=== PATIENT | female | born 1955 | race Caucasian/White ===

== ENCOUNTER 2018-04-12 07:02 | Emergency (ER) | payer MEDICAID ==
[~2018-04-12] VITALS: Ht 160 cm; Wt 77.0 kg
[~2018-04-12 07:02] MED LIST: ACET-2615 PO; ALBU18HF2 IH; ALBU18HF2 INH; ALEN40TA2 PO; ALEN70TA48 PO; ASPI-1265 PO; ASPI81TA52 PO; BUPR100T5 PO; BUPR150T8 PO; CALC260T6 PO; ESCI20TA29 PO; ESCI20TA38 PO; HYDR-4383 PO; IBUP-1984 PO; LAMO200T2 PO; LURA60TA PO; LURA80TA3 PO; MAGN400C PO; MULT-1085 PO; MV-M1TAB19 PO; NITR0.4T51 SL; OMEP20TA5 PO; OSC500T PO; PANT-47 PO; ROPI1TAB4 PO; VITA1TAB20 PO; VITA200C68 PO; VITC500T PO; ZALE10CA PO; ZOLP5TAB8 PO
[2018-04-12 07:40] LABS: BASOPHILS % (AUTO) 0.3 % (0-1); EOSINOPHILS % (AUTO) 0.7 % (0-6); HEMATOCRIT 35.4 % (35.0-45.0); HEMOGLOBIN 11.8 g/dl (12.0-16.0); LYMPHOCYTES # (AUTO) 0.6 X10'3 (1.1-4.8); LYMPHOCYTES % (AUTO) 14.1 % (21-51); MEAN CORPUSCULAR HEMOGLOBIN 28.9 PG (27.0-31.0); MEAN CORPUSCULAR HGB CONC 33.2 % (33.0-36.5); MEAN CORPUSCULAR VOLUME 87.1 FL (78-98); MEAN PLATELET VOLUME 7.2 FL (7.4-10.4); MONOCYTES # (AUTO) 0.2 X10'3 (0-0.9); MONOCYTES % (AUTO) 4.1 % (2-12); NEUTROPHILS # (AUTO) 3.3 X10'3 (1.8-7.7); NEUTROPHILS % (AUTO) 80.8 % (42-75); PLATELET COUNT 314 X10'3 (140-440); RED BLOOD COUNT 4.07 X10'6 (4.20-5.60); RED CELL DISTRIBUTION WIDTH 15.8 % (11.5-14.5); WHITE BLOOD COUNT 4.1 X10'3 (4.5-11.0)
[2018-04-12 07:51] LABS: URINE HCG NEGATIVE (NEG)
[2018-04-12 07:55] LABS: CLARITY,URINE CLEAR (Clear); COLOR,URINE YELLOW (Yellow); GLUCOSE, URINE NEGATIVE (Neg); KETONES,URINE NEGATIVE (Neg); LEUKOCYTE ESTERASE ,URINE NEGATIVE (Neg); NITRITES, URINE NEGATIVE (Neg); OCCULT BLOOD,URINE NEGATIVE (Neg); PROTEIN,URINE NEGATIVE (Neg); UROBILINOGEN,URINE 0.2 E.U/dL (0.2-1.0)
[2018-04-12 07:56] LABS: UA COLLECTION TYPE OTHER
[2018-04-12 08:04] LABS: ALANINE AMINOTRANSFERASE 17 U/L (12-78); ALBUMIN 3.7 G/DL (3.4-5.0); ALBUMIN/GLOBULIN RATIO 1.1 (1.1-1.5); ALKALINE PHOSPHATASE 127 IU/L (46-116); ANION GAP 10 (8-16); ASPARTATE AMINO TRANSFERASE 16 U/L (10-37); BILIRUBIN,TOTAL 0.5 MG/DL (0.1-1.0); BLOOD UREA NITROGEN 8 MG/DL (7-18); BUN/CREATININE RATIO 6.4 (6.6-38.0); CALCIUM 8.4 MG/DL (8.5-10.1); CHLORIDE 103 MMOL/L (99-107); CREATININE 1.25 MG/DL (0.40-0.90); ETHANOL < 0.010 GM/DL (0.0-0.010); GLUCOSE 131 MG/DL (70-104); POTASSIUM 3.8 MMOL/L (3.5-5.1); SODIUM 136 MMOL/L (135-145); TOTAL CARBON DIOXIDE 22.9 MMOL/L (24-32); eGFR 43 ML/MIN
[2018-04-12 08:06] LABS: ACETAMINOPHEN < 2.0 UG/ML (10-30)
[2018-04-12 08:14] LABS: URINE AMPHETAMINE SCREEN NEGATIVE (Neg); URINE BARBITUATE SCREEN NEGATIVE (Neg); URINE BENZODIAZEPINES SCREEN NEGATIVE (Neg); URINE CANNABINOID SCREEN NEGATIVE (Neg); URINE COCAINE SCREEN NEGATIVE (Neg); URINE METHADONE SCREEN NEGATIVE (Neg); URINE OPIATE SCREEN NEGATIVE (Neg); URINE PHENCYCLIDINE SCREEN NEGATIVE (Neg)
[2018-04-12] MEDS ORDERED: BUPR100T5 PO (19:58)
[2018-04-12] MEDS ORDERED: LAMO25TA4 PO (19:58)
[2018-04-12] MEDS ORDERED: ALEN70TA48 PO (19:58)
[2018-04-12] MEDS ORDERED: acetaminophen 325mg tablet PO PRN (21:05)
[2018-04-13] MEDS: pantoprazole 40mg Tablet.DR PO SCH (08:18)
[2018-04-13] MEDS: lamoTRIgine 100mg tablet PO SCH ×2 (08:18→20:36)
[2018-04-13] MEDS: multivitamins, therapeutics tablet PO SCH (08:18)
[2018-04-13] MEDS: aspirin 81mg tablet.DR PO SCH (08:18)
[2018-04-13] MEDS: calcium carbonate 500mg tablet PO SCH ×2 (08:19→20:35)
[2018-04-13] MEDS: ascorbic acid 500mg tablet PO SCH ×2 (08:22→20:00)
[2018-04-13] MEDS: buPROPion SR 100mg tab PO SCH ×2 (08:30→20:34)
[2018-04-13] MEDS: vitamin B comp w/Vit. C tab 1 TAB TABLET PO SCH (08:30)
[2018-04-13] MEDS ORDERED: [UNRECOGNIZED DRUG - REMARK] PO NR (10:00)
[2018-04-13] MEDS ORDERED: lamoTRIgine 25mg tablet PO SCH (21:00)
[2018-04-14] MEDS ORDERED: topiramate 100mg tablet PO ONE (02:10)
[2018-04-14] MEDS ORDERED: clonazePAM 0.5mg tablet PO ONE (02:10)
[2018-04-14] MEDS ORDERED: topiramate 25mg tablet PO ONE (02:25)
[2018-04-14 05:46] VITALS: BP 125/64
[2018-04-14] MEDS ORDERED: topiramate 25mg tablet PO SCH (08:00)
[2018-04-14] MEDS: calcium carbonate 500mg tablet PO SCH (09:13)
[2018-04-14] MEDS: buPROPion SR 100mg tab PO SCH (09:13)
[2018-04-14] MEDS: vitamin B comp w/Vit. C tab 1 TAB TABLET PO SCH (09:13)
[2018-04-14] MEDS: multivitamins, therapeutics tablet PO SCH (09:14)
[2018-04-14] MEDS: aspirin 81mg tablet.DR PO SCH (09:14)
[2018-04-14] MEDS: lamoTRIgine 100mg tablet PO SCH (09:14)
[2018-04-14] MEDS: pantoprazole 40mg Tablet.DR PO SCH (09:14)
[2018-04-14] MEDS ORDERED: clonazePAM 0.5mg tablet PO SCH (21:00)
== END 2018-04-14 17:35 | disposition home or self-care (01) ==
LOC: ER 07:03
DX: T42.6X2A Poisoning by other antiepileptic and sedative-hypnotic drugs, intentional self-harm, initial encounter (principal); T39.312A Poisoning by propionic acid derivatives, intentional self-harm, initial encounter; Y92.89 Other specified places as the place of occurrence of the external cause; R45.851 Suicidal ideations; J44.9 Chronic obstructive pulmonary disease, unspecified; E11.9 Type 2 diabetes mellitus without complications; F31.9 Bipolar disorder, unspecified; Z90.710 Acquired absence of both cervix and uterus; Z79.82 Long term (current) use of aspirin; Z72.89 Other problems related to lifestyle; Z79.899 Other long term (current) drug therapy
CPT/HCPCS: 36415; 80053; 80305; 80320; 80329; 81003; 81025; 84443; 85025; 93005; 99285

== ENCOUNTER 2018-04-27 15:45 | Emergency (ER) | payer MEDICAID ==
[~2018-04-27] VITALS: Ht 160 cm; Wt 77.7 kg
[~2018-04-27 15:45] MED LIST changes: -ALBU18HF2 IH; -ALBU18HF2 INH; -ALEN40TA2 PO; -ASPI-1265 PO; -BUPR150T8 PO; -CALC260T6 PO; -ESCI20TA29 PO; -ESCI20TA38 PO; -HYDR-4383 PO; +LAMO25TA4 PO; -LURA60TA PO; -LURA80TA3 PO; -MAGN400C PO; -MV-M1TAB19 PO; -NITR0.4T51 SL; -PANT-47 PO; -ROPI1TAB4 PO; -VITA200C68 PO; -ZALE10CA PO; -ZOLP5TAB8 PO
[2018-04-27 16:53] VITALS: BP 121/72
== END 2018-04-27 16:54 | disposition home or self-care (01) ==
LOC: ER 15:45
DX: S00.03XA Contusion of scalp, initial encounter (principal); S09.90XA Unspecified injury of head, initial encounter; J44.9 Chronic obstructive pulmonary disease, unspecified; Z90.710 Acquired absence of both cervix and uterus; Z98.890 Other specified postprocedural states; Z79.82 Long term (current) use of aspirin; W01.198A Fall on same level from slipping, tripping and stumbling with subsequent striking against other object, initial encounter; Y93.89 Activity, other specified; Y92.89 Other specified places as the place of occurrence of the external cause; Y99.9 Unspecified external cause status
CPT/HCPCS: 70450; 72125; 99284

== ENCOUNTER 2018-06-11 17:28 | Inpatient (IN) | payer MEDICAID ==
[~2018-06-11] VITALS: Ht 160 cm; Wt 77.3 kg
[2018-06-11] MEDS ORDERED: morphine 4 MG/ML inj SYRINge IV ONE ×2 (19:00→19:55)
[2018-06-11] MEDS ORDERED: ondansetron/PF 4mg/2ml inj IV ONE (19:00)
[2018-06-11 19:26] LABS: BASOPHILS % (AUTO) 0.1 % (0-1); EOSINOPHILS # (AUTO) 0.1 X10'3 (0-0.9); EOSINOPHILS % (AUTO) 1.3 % (0-6); HEMATOCRIT 33.9 % (35.0-45.0); HEMOGLOBIN 11.1 g/dl (12.0-16.0); LYMPHOCYTES # (AUTO) 0.9 X10'3 (1.1-4.8); LYMPHOCYTES % (AUTO) 13.4 % (21-51); MEAN CORPUSCULAR HEMOGLOBIN 29.2 PG (27.0-31.0); MEAN CORPUSCULAR HGB CONC 32.6 % (33.0-36.5); MEAN CORPUSCULAR VOLUME 89.5 FL (78-98); MEAN PLATELET VOLUME 7.2 FL (7.4-10.4); MONOCYTES # (AUTO) 0.4 X10'3 (0-0.9); MONOCYTES % (AUTO) 6.3 % (2-12); NEUTROPHILS # (AUTO) 5.6 X10'3 (1.8-7.7); NEUTROPHILS % (AUTO) 78.9 % (42-75); PLATELET COUNT 266 X10'3 (140-440); RED BLOOD COUNT 3.79 X10'6 (4.20-5.60); RED CELL DISTRIBUTION WIDTH 15.5 % (11.5-14.5); WHITE BLOOD COUNT 7.1 X10'3 (4.5-11.0)
[2018-06-11 19:42] LABS: ALANINE AMINOTRANSFERASE 19 U/L (12-78); ALBUMIN 3.4 G/DL (3.4-5.0); ALBUMIN/GLOBULIN RATIO 1.1 (1.1-1.5); ALKALINE PHOSPHATASE 108 IU/L (46-116); ANION GAP 13 (8-16); ASPARTATE AMINO TRANSFERASE 17 U/L (10-37); BILIRUBIN,TOTAL 0.2 MG/DL (0.1-1.0); BLOOD UREA NITROGEN 11 MG/DL (7-18); BUN/CREATININE RATIO 11.3 (6.6-38.0); CALCIUM 8.5 MG/DL (8.5-10.1); CHLORIDE 105 MMOL/L (99-107); CREATININE 0.97 MG/DL (0.40-0.90); GLUCOSE 115 MG/DL (70-104); POTASSIUM 3.6 MMOL/L (3.5-5.1); SODIUM 141 MMOL/L (135-145); TOTAL CARBON DIOXIDE 23.4 MMOL/L (24-32); TOTAL PROTEIN 6.5 G/DL (6.4-8.2); eGFR 58 ML/MIN
[2018-06-11 19:48] LABS: PARTIAL THROMBOPLASTIN TIME 29 SECONDS (22-32); PROTHROMBIN TIME 10.2 SECONDS (9.0-12.0)
[2018-06-11 19:59] LABS: CLARITY,URINE CLEAR (Clear); COLOR,URINE YELLOW (Yellow); GLUCOSE, URINE NEGATIVE (Neg); KETONES,URINE NEGATIVE (Neg); LEUKOCYTE ESTERASE ,URINE NEGATIVE (Neg); NITRITES, URINE NEGATIVE (Neg); OCCULT BLOOD,URINE NEGATIVE (Neg); PH,URINE 6.5 (4.8-8.0); PROTEIN,URINE NEGATIVE (Neg); UROBILINOGEN,URINE 0.2 E.U/dL (0.2-1.0)
[2018-06-11 20:00] LABS: UA COLLECTION TYPE FOLEY CATH
[2018-06-11] MEDS ORDERED: morphine 2 MG/ML inj. syringe IV PRN (20:55)
[2018-06-11] MEDS ORDERED: mag hydrox/Alum hydrox/simeth 30ml oral suspension PO PRN (20:55)
[2018-06-11] MEDS ORDERED: heparin, porcine 5000 units/ml vial SQ ONE (20:55)
[2018-06-11] MEDS ORDERED: acetaminophen 325mg tablet PO PRN (20:55)
[2018-06-11] MEDS ORDERED: magnesium hydroxide 30ml (MOM) UD suspension PO PRN (20:55)
[2018-06-11] MEDS ORDERED: ESCI5TAB PO (21:45)
[2018-06-11] MEDS ORDERED: LURA60TA2 PO (21:45)
[2018-06-11] MEDS ORDERED: CLON-528 PO (21:45)
[2018-06-11] MEDS ORDERED: OMEP40CA37 PO (21:45)
[2018-06-11] MEDS ORDERED: TOPI25TA49 PO (21:45)
[2018-06-11] MEDS ORDERED: non-formulary drug (Alendronate Sodium* (Fosamax*) 1 TABLET) PO SCH (21:50)
[2018-06-11] MEDS: normal saline 1000ml 1,000 ML IV SCH (22:01)
[2018-06-11] MEDS: morphine 2 MG/ML inj. syringe IV PRN (23:58)
[2018-06-12] VITALS (20 sets, daily range): BP systolic 108–161; BP diastolic 55–93
[2018-06-12] MEDS: morphine 4 MG/ML inj SYRINge IV PRN ×6 (01:41→16:54)
[2018-06-12] MEDS: morphine 2 MG/ML inj. syringe IV PRN (04:58)
[2018-06-12] MEDS: ondansetron/PF 4mg/2ml inj IV PRN ×2 (04:58→12:53)
[2018-06-12] MEDS: aspirin 81mg tablet.DR PO SCH (08:00)
[2018-06-12] MEDS: normal saline 1000ml 1,000 ML IV SCH ×3 (08:09→20:53)
[2018-06-12] MEDS: lurasidone 60mg tablet PO SCH (08:12)
[2018-06-12] MEDS: citalopram 20mg tablet PO SCH (08:13)
[2018-06-12] MEDS: topiramate 25mg tablet PO SCH ×2 (08:14→20:53)
[2018-06-12] MEDS: pantoprazole 40mg Tablet.DR PO SCH (08:14)
[2018-06-12] MEDS: lamoTRIgine 100mg tablet PO SCH ×2 (08:14→20:53)
[2018-06-12] MEDS: buPROPion SR 100mg tab PO SCH ×2 (08:15→20:53)
[2018-06-12 08:37] LABS: BASOPHILS % (AUTO) 0.3 % (0-1); EOSINOPHILS % (AUTO) 0.8 % (0-6); HEMATOCRIT 34.2 % (35.0-45.0); HEMOGLOBIN 11.2 g/dl (12.0-16.0); LYMPHOCYTES # (AUTO) 1.1 X10'3 (1.1-4.8); LYMPHOCYTES % (AUTO) 22.2 % (21-51); MEAN CORPUSCULAR HEMOGLOBIN 29.2 PG (27.0-31.0); MEAN CORPUSCULAR HGB CONC 32.7 % (33.0-36.5); MEAN CORPUSCULAR VOLUME 89.2 FL (78-98); MEAN PLATELET VOLUME 7.7 FL (7.4-10.4); MONOCYTES # (AUTO) 0.6 X10'3 (0-0.9); MONOCYTES % (AUTO) 12.1 % (2-12); NEUTROPHILS # (AUTO) 3.3 X10'3 (1.8-7.7); NEUTROPHILS % (AUTO) 64.6 % (42-75); PLATELET COUNT 219 X10'3 (140-440); RED BLOOD COUNT 3.84 X10'6 (4.20-5.60); RED CELL DISTRIBUTION WIDTH 15.4 % (11.5-14.5); WHITE BLOOD COUNT 5.2 X10'3 (4.5-11.0)
[2018-06-12 08:52] LABS: ALANINE AMINOTRANSFERASE 18 U/L (12-78); ALBUMIN 3.2 G/DL (3.4-5.0); ALKALINE PHOSPHATASE 111 IU/L (46-116); ANION GAP 10 (8-16); ASPARTATE AMINO TRANSFERASE 19 U/L (10-37); BILIRUBIN,TOTAL 0.5 MG/DL (0.1-1.0); BLOOD UREA NITROGEN 10 MG/DL (7-18); BUN/CREATININE RATIO 11.9 (6.6-38.0); CALCIUM 8.2 MG/DL (8.5-10.1); CHLORIDE 105 MMOL/L (99-107); CREATININE 0.84 MG/DL (0.40-0.90); GLUCOSE 118 MG/DL (70-104); POTASSIUM 3.5 MMOL/L (3.5-5.1); SODIUM 140 MMOL/L (135-145); TOTAL CARBON DIOXIDE 24.7 MMOL/L (24-32); TOTAL PROTEIN 6.4 G/DL (6.4-8.2); eGFR 68 ML/MIN
[2018-06-12] MEDS ORDERED: BUPIVAcaine/PF 2.5mg/ml (0.25%) 10ml vial ONE (13:27)
[2018-06-12] MEDS ORDERED: sevoflurane 250ml liquid IH ONE (14:44)
[2018-06-12] MEDS ORDERED: dexamethasone sod phosphate 10mg/ml inj ONE (14:44)
[2018-06-12] MEDS ORDERED: fentaNYL/PF 50MCG/1 ML 2ML syringe ONE (14:45)
[2018-06-12] MEDS ORDERED: propofol inj 20 ML IV ONE (14:46)
[2018-06-12] MEDS ORDERED: LIDOcaine 2% (20mg/ml) 5ml vial ONE (14:46)
[2018-06-12] MEDS ORDERED: MIDAZolam 5mg/5ml vial ONE (14:46)
[2018-06-12] MEDS ORDERED: ringers solution, lacted 1,000 ML IV SCH (14:49)
[2018-06-12] MEDS ORDERED: labetalol 20mg/4ml (5mg/ml) syringe IV PRN (14:50)
[2018-06-12] MEDS ORDERED: ondansetron/PF 4mg/2ml inj IV PRN (14:50)
[2018-06-12] MEDS ORDERED: fentaNYL/PF 50MCG/1 ML 2ML syringe IV PRN ×2 (14:50)
[2018-06-12] MEDS ORDERED: hydrALAZINE 20mg/ml inj. IV PRN (14:50)
[2018-06-12] MEDS ORDERED: morphine 4 MG/ML inj SYRINge IV PRN ×4 (14:50→15:48)
[2018-06-12] MEDS ORDERED: ondansetron/PF 4mg/2ml inj ONE (15:11)
[2018-06-12] MEDS: clonazePAM 0.5mg tablet PO SCH (20:53)
[2018-06-13] VITALS (7 sets, daily range): BP systolic 90–102; BP diastolic 38–52
[2018-06-13] MEDS ORDERED: HYDROcodone/acetaminophen 10/325mg tab PO PRN (05:15)
[2018-06-13] MEDS: HYDROcodone/acetaminophen 10/325mg tab PO PRN ×2 (05:31→20:10)
[2018-06-13 06:46] LABS: BASOPHILS % (AUTO) 0.2 % (0-1); EOSINOPHILS % (AUTO) 0 % (0-6); HEMATOCRIT 28.9 % (35.0-45.0); HEMOGLOBIN 9.4 g/dl (12.0-16.0); LYMPHOCYTES # (AUTO) 0.9 X10'3 (1.1-4.8); LYMPHOCYTES % (AUTO) 13.5 % (21-51); MEAN CORPUSCULAR HGB CONC 32.4 % (33.0-36.5); MEAN CORPUSCULAR VOLUME 89.4 FL (78-98); MONOCYTES # (AUTO) 0.7 X10'3 (0-0.9); NEUTROPHILS # (AUTO) 4.9 X10'3 (1.8-7.7); NEUTROPHILS % (AUTO) 75.3 % (42-75); PLATELET COUNT 189 X10'3 (140-440); RED BLOOD COUNT 3.23 X10'6 (4.20-5.60); RED CELL DISTRIBUTION WIDTH 15.4 % (11.5-14.5); WHITE BLOOD COUNT 6.6 X10'3 (4.5-11.0)
[2018-06-13 07:35] LABS: ALANINE AMINOTRANSFERASE 19 U/L (12-78); ALBUMIN 2.7 G/DL (3.4-5.0); ALKALINE PHOSPHATASE 86 IU/L (46-116); ANION GAP 8 (8-16); ASPARTATE AMINO TRANSFERASE 21 U/L (10-37); BILIRUBIN,TOTAL 0.4 MG/DL (0.1-1.0); BLOOD UREA NITROGEN 6 MG/DL (7-18); BUN/CREATININE RATIO 7.1 (6.6-38.0); CALCIUM 8.3 MG/DL (8.5-10.1); CHLORIDE 110 MMOL/L (99-107); CREATININE 0.84 MG/DL (0.40-0.90); GLUCOSE 116 MG/DL (70-104); POTASSIUM 3.9 MMOL/L (3.5-5.1); SODIUM 143 MMOL/L (135-145); TOTAL CARBON DIOXIDE 24.9 MMOL/L (24-32); TOTAL PROTEIN 5.5 G/DL (6.4-8.2); eGFR 68 ML/MIN
[2018-06-13] MEDS: lurasidone 60mg tablet PO SCH (08:10)
[2018-06-13] MEDS: buPROPion SR 100mg tab PO SCH ×2 (08:10→20:09)
[2018-06-13] MEDS: aspirin 81mg tablet.DR PO SCH (08:10)
[2018-06-13] MEDS: lamoTRIgine 100mg tablet PO SCH ×2 (08:11→20:10)
[2018-06-13] MEDS: pantoprazole 40mg Tablet.DR PO SCH (08:11)
[2018-06-13] MEDS: topiramate 25mg tablet PO SCH ×2 (08:11→20:09)
[2018-06-13] MEDS: citalopram 20mg tablet PO SCH (08:11)
[2018-06-13] MEDS: enoxaparin 40mg/0.4ml syringe SUBCUT SCH (08:13)
[2018-06-13] MEDS: normal saline 1000ml 1,000 ML IV SCH (12:53)
[2018-06-13] MEDS: morphine 4 MG/ML inj SYRINge IV PRN (14:16)
[2018-06-13] MEDS: ceFAZolin 1GM/D5W- ADD-VANTAGE 50 ML IV SCH ×2 (14:39→22:00)
[2018-06-13] MEDS ORDERED: ceFAZolin 1GM/D5W- ADD-VANTAGE 50 ML IV SCH (16:00)
[2018-06-13] MEDS: clonazePAM 0.5mg tablet PO SCH (20:09)
[2018-06-13] MEDS ORDERED: ceFAZolin 1GM/D5W- ADD-VANTAGE 50 ML IV ONE (23:45)
[2018-06-14] MEDS: normal saline 1000ml 1,000 ML IV SCH ×2 (00:59→08:53)
[2018-06-14 05:00] VITALS: BP 113/56
[2018-06-14] MEDS: HYDROcodone/acetaminophen 10/325mg tab PO PRN (05:27)
[2018-06-14 06:07] LABS: BASOPHILS % (AUTO) 0.2 % (0-1); EOSINOPHILS # (AUTO) 0.1 X10'3 (0-0.9); EOSINOPHILS % (AUTO) 1.1 % (0-6); HEMATOCRIT 24.6 % (35.0-45.0); HEMOGLOBIN 8.2 g/dl (12.0-16.0); LYMPHOCYTES % (AUTO) 20.6 % (21-51); MEAN CORPUSCULAR HEMOGLOBIN 29.5 PG (27.0-31.0); MEAN CORPUSCULAR HGB CONC 33.4 % (33.0-36.5); MEAN CORPUSCULAR VOLUME 88.4 FL (78-98); MONOCYTES # (AUTO) 0.7 X10'3 (0-0.9); MONOCYTES % (AUTO) 13.5 % (2-12); NEUTROPHILS # (AUTO) 3.2 X10'3 (1.8-7.7); NEUTROPHILS % (AUTO) 64.6 % (42-75); PLATELET COUNT 162 X10'3 (140-440); RED BLOOD COUNT 2.78 X10'6 (4.20-5.60); RED CELL DISTRIBUTION WIDTH 15.4 % (11.5-14.5)
[2018-06-14 06:15] LABS: ALANINE AMINOTRANSFERASE 16 U/L (12-78); ALBUMIN 2.4 G/DL (3.4-5.0); ALBUMIN/GLOBULIN RATIO 0.9 (1.1-1.5); ALKALINE PHOSPHATASE 84 IU/L (46-116); ANION GAP 10 (8-16); ASPARTATE AMINO TRANSFERASE 22 U/L (10-37); BILIRUBIN,TOTAL 0.3 MG/DL (0.1-1.0); BLOOD UREA NITROGEN 8 MG/DL (7-18); BUN/CREATININE RATIO 9.2 (6.6-38.0); CALCIUM 8.1 MG/DL (8.5-10.1); CHLORIDE 108 MMOL/L (99-107); CREATININE 0.87 MG/DL (0.40-0.90); GLUCOSE 111 MG/DL (70-104); POTASSIUM 3.1 MMOL/L (3.5-5.1); SODIUM 142 MMOL/L (135-145); TOTAL CARBON DIOXIDE 23.9 MMOL/L (24-32); TOTAL PROTEIN 5.2 G/DL (6.4-8.2); eGFR 66 ML/MIN
[2018-06-14] MEDS: enoxaparin 40mg/0.4ml syringe SUBCUT SCH (08:51)
[2018-06-14] MEDS: lurasidone 60mg tablet PO SCH (08:51)
[2018-06-14] MEDS: aspirin 81mg tablet.DR PO SCH (08:52)
[2018-06-14] MEDS: topiramate 25mg tablet PO SCH (08:52)
[2018-06-14] MEDS: buPROPion SR 100mg tab PO SCH (08:52)
[2018-06-14] MEDS: pantoprazole 40mg Tablet.DR PO SCH (08:52)
[2018-06-14] MEDS: citalopram 20mg tablet PO SCH (08:52)
[2018-06-14] MEDS: lamoTRIgine 100mg tablet PO SCH (08:53)
[2018-06-14] MEDS ORDERED: potassium Cl 40MEQ/NS 500ml 500 ML IV PRN ×2 (09:00)
[2018-06-14] MEDS ORDERED: potassium Cl 20 mEq SR tablet PO PRN ×2 (09:00)
[2018-06-14 10:00] VITALS: BP 113/42
[2018-06-14 10:02] LABS: MAGNESIUM 1.9 MG/DL (1.5-2.4)
== END 2018-06-14 14:50 | DRG 308 ==
LOC: ER 17:29 → ED HOLD 21:13 → ORTHO 4S 06-12 07:04
PROVIDERS: ADMIT Internal Medicine; ATTEND Orthopaedic Surgery Hand Surgery
PROC: 0QS606Z Reposition Right Upper Femur with Intramedullary Internal Fixation Device, Open Approach (ICD-10-PCS; principal; 2018-06-12 14:49)
DX: S72.141A Displaced intertrochanteric fracture of right femur, initial encounter for closed fracture (principal); D62 Acute posthemorrhagic anemia; S72.21XA Displaced subtrochanteric fracture of right femur, initial encounter for closed fracture; J44.9 Chronic obstructive pulmonary disease, unspecified; W01.0XXA Fall on same level from slipping, tripping and stumbling without subsequent striking against object, initial encounter; G40.909 Epilepsy, unspecified, not intractable, without status epilepticus; F31.9 Bipolar disorder, unspecified; K21.9 Gastro-esophageal reflux disease without esophagitis; Z80.8 Family history of malignant neoplasm of other organs or systems; Z82.49 Family history of ischemic heart disease and other diseases of the circulatory system; Z83.3 Family history of diabetes mellitus; Z90.710 Acquired absence of both cervix and uterus; Y93.89 Activity, other specified; Y92.098 Other place in other non-institutional residence as the place of occurrence of the external cause; Y99.8 Other external cause status; Z79.899 Other long term (current) drug therapy
CPT/HCPCS: 36415; 71045; 73502; 76001; 80053; 81003; 83735; 85025; 85610; 85730; 87070; 93005; 96374; 96375; 96376; 97116; 97162; 97530; 99285; A6449; A7000; G0378; J0690; J1100; J1644; J1650; J2001; J2250; J2270; J2405; J2704; J3010; J3490; J7030; J7120

== ENCOUNTER 2020-01-17 15:40 | Emergency (ER) | payer MEDICARE, MEDICAID ==
[~2020-01-17] VITALS: Ht 160 cm; Wt 62.7 kg
[~2020-01-17 15:40] MED LIST changes: -ACET-2615 PO; -ALEN70TA48 PO; +ALEN70TA60 PO; +CLON-528 PO; +ESCI5TAB PO; -IBUP-1984 PO; -LAMO25TA4 PO; +LURA60TA2 PO; -MULT-1085 PO; -OMEP20TA5 PO; +OMEP40CA13 PO; -OSC500T PO; +TOPI25TA49 PO; -VITA1TAB20 PO; -VITC500T PO
[2020-01-17 16:46] LABS: BASOPHILS % (AUTO) 0.7 % (0-1); EOSINOPHILS # (AUTO) 0.1 X10'3 (0-0.9); EOSINOPHILS % (AUTO) 1.8 % (0-6); HEMATOCRIT 37.6 % (35.0-45.0); HEMOGLOBIN 12.4 g/dl (12.0-16.0); LYMPHOCYTES # (AUTO) 1.3 X10'3 (1.1-4.8); MEAN CORPUSCULAR HEMOGLOBIN 29.9 PG (27.0-31.0); MEAN CORPUSCULAR HGB CONC 32.9 g/dL (33.0-36.5); MEAN PLATELET VOLUME 7.3 FL (7.4-10.4); MONOCYTES # (AUTO) 0.4 X10'3 (0-0.9); MONOCYTES % (AUTO) 10.5 % (2-12); NEUTROPHILS # (AUTO) 2.2 X10'3 (1.8-7.7); PLATELET COUNT 218 X10'3 (140-440); RED BLOOD COUNT 4.14 X10'6 (4.20-5.60); RED CELL DISTRIBUTION WIDTH 14.7 % (11.5-14.5)
[2020-01-17 16:49] LABS: PARTIAL THROMBOPLASTIN TIME 21 SECONDS (22-32)
[2020-01-17 16:52] LABS: ALANINE AMINOTRANSFERASE 18 U/L (12-78); ALBUMIN 3.8 G/DL (3.4-5.0); ALBUMIN/GLOBULIN RATIO 1.2 (1.1-1.5); ALKALINE PHOSPHATASE 71 IU/L (46-116); ANION GAP 10 (8-16); ASPARTATE AMINO TRANSFERASE 17 U/L (10-37); BILIRUBIN,TOTAL 0.5 MG/DL (0.1-1.0); BLOOD UREA NITROGEN 13 MG/DL (7-18); BUN/CREATININE RATIO 12.5 (6.6-38.0); CALCIUM 9.5 MG/DL (8.5-10.1); CHLORIDE 107 MMOL/L (99-107); CREATININE 1.04 MG/DL (0.40-0.90); GLUCOSE 100 MG/DL (70-104); SODIUM 141 MMOL/L (135-145); TOTAL CARBON DIOXIDE 24.2 MMOL/L (24-32); TOTAL PROTEIN 6.9 G/DL (6.4-8.2); eGFR 53 ML/MIN
[2020-01-17 16:55] LABS: TROPONIN I < 0.04 NG/ML (0.0-0.05)
[2020-01-17 17:38] LABS: URINE AMPHETAMINE SCREEN NEGATIVE (Neg); URINE BARBITUATE SCREEN NEGATIVE (Neg); URINE BENZODIAZEPINES SCREEN NEGATIVE (Neg); URINE CANNABINOID SCREEN NEGATIVE (Neg); URINE COCAINE SCREEN NEGATIVE (Neg); URINE METHADONE SCREEN NEGATIVE (Neg); URINE OPIATE SCREEN NEGATIVE (Neg); URINE PHENCYCLIDINE SCREEN NEGATIVE (Neg)
[2020-01-17 17:51] LABS: CLARITY,URINE CLEAR (Clear); COLOR,URINE YELLOW (Yellow); GLUCOSE, URINE NEGATIVE (Neg); KETONES,URINE NEGATIVE (Neg); LEUKOCYTE ESTERASE ,URINE NEGATIVE (Neg); NITRITES, URINE NEGATIVE (Neg); OCCULT BLOOD,URINE NEGATIVE (Neg); PROTEIN,URINE NEGATIVE (Neg); UROBILINOGEN,URINE 0.2 E.U/dL (0.2-1.0)
[2020-01-17 17:53] LABS: UA COLLECTION TYPE VOIDED
[2020-01-17 18:18] VITALS: BP 138/84
== END 2020-01-17 18:28 | disposition home or self-care (01) ==
LOC: ER 15:41
DX: R42 Dizziness and giddiness (principal); R53.1 Weakness; R05 Cough; J44.9 Chronic obstructive pulmonary disease, unspecified; F31.9 Bipolar disorder, unspecified; Z86.69 Personal history of other diseases of the nervous system and sense organs; Z90.710 Acquired absence of both cervix and uterus; Z79.82 Long term (current) use of aspirin
CPT/HCPCS: 36415; 71045; 80053; 80305; 81003; 84484; 85025; 85610; 85730; 93005; 99285

== ENCOUNTER 2022-06-16 14:11 | Emergency (ER) | payer MEDICARE, MEDICAID ==
[~2022-06-16] VITALS: Ht 160 cm; Wt 78.6 kg
[~2022-06-16 14:11] MED LIST changes: -ALEN70TA60 PO; +DICL100G30 TOP; -ESCI5TAB PO; -LAMO200T2 PO; -LURA60TA2 PO; -OMEP40CA13 PO; +QUET25TA36 PO; -TOPI25TA49 PO; +TOPI50TA24 PO
[2022-06-16 15:08] VITALS: BP 136/85
== END 2022-06-16 19:24 | disposition left against medical advice (07) ==
LOC: ER 14:12
DX: K62.5 Hemorrhage of anus and rectum (principal); Z53.21 Procedure and treatment not carried out due to patient leaving prior to being seen by health care provider

== ENCOUNTER 2023-01-28 12:19 | Inpatient (IN) | payer MEDICARE, MEDICAID ==
[~2023-01-28] VITALS: Ht 160 cm; Wt 59.9 kg
[~2023-01-28 12:19] MED LIST changes: -DICL100G30 TOP; +DICL100G59 TOP; +TOPI-253 PO; -TOPI50TA24 PO
--- NOTE | 2023-01-28 15:35 | NUR ---
Admission Note: Pt. was admitted from [facility] on a 5150 for DTS. A safety check was completed and belongings were inventoried by Tech. Per 5150: You disclosed a plan to your therapist to cut your throat/jugular vein with a knife. You stated you are intent on doing so once you work up the courage and are unable to safety plan. You have a history of past suicide attempts. Pt. scores as a high risk on the [place] Suicide Risk Assessment, however is able to contract for safety while on the unit. This was endorsed to Dr. Teresa and Q 15min safety checks were ordered. Pt. exhibits bilateral leg weakness r/t a history of right hip surgery and left ankle surgery. She wears a leg brace for ambulation and per charge nurse was allowed to keep her tennis shoes with the laces as she needs these for ambulation. Pt. uses a cane at home, but was given a walker to use while on the unit. She requires some assistance in order to perform ADLs r/t generalized weakness. Pt. did require assistance from this engineering writer to complete a shower upon admission.
[2023-01-28] MEDS ORDERED: magnesium hydroxide 30ml (MOM) UD suspension PO PRN (15:45)
[2023-01-28] MEDS ORDERED: mag hydrox/Alum hydrox/simeth 30ml oral suspension PO PRN (15:45)
[2023-01-28] MEDS ORDERED: acetaminophen 325mg tablet PO PRN ×2 (15:45)
[2023-01-28] MEDS ORDERED: loperamide 2mg capsule PO PRN (15:45)
[2023-01-28 16:13] VITALS: BP 105/61; PULSE 89; RESP 16; TEMP 99.2; O2SAT 99
[2023-01-28 16:41] VITALS: RESP 16; O2SAT 99
[2023-01-28 19:00] VITALS: RESP 17; O2SAT 96
[2023-01-28] MEDS ORDERED: TOPI25TA15 PO (19:13)
[2023-01-28] MEDS ORDERED: DULO20CA50 PO (19:18)
[2023-01-28] MEDS ORDERED: LAMO200T10 PO (19:33)
[2023-01-28] MEDS ORDERED: NYST15CR37 TP (19:34)
[2023-01-28] MEDS ORDERED: CHOL400C8 PO (19:36)
[2023-01-28] MEDS ORDERED: OSC500T PO (19:39)
[2023-01-28 20:00] VITALS: BP 109/56; PULSE 68; RESP 17; TEMP 96.1; O2SAT 96
[2023-01-28] MEDS ORDERED: clonazePAM 0.5mg tablet PO ONE (23:40)
[2023-01-28] MEDS ORDERED: QUEtiapine 25mg tablet PO ONE (23:40)
[2023-01-28] MEDS ORDERED: topiramate 25mg tablet PO ONE (23:50)
[2023-01-29] MEDS ORDERED: clonazePAM 0.5mg tablet PO SCH (01:40)
[2023-01-29] MEDS ORDERED: QUEtiapine 25mg tablet PO SCH (01:45)
[2023-01-29] MEDS: topiramate 25mg tablet PO SCH ×3 (01:53→21:01)
[2023-01-29] MEDS: lamoTRIgine 100mg tablet PO SCH ×2 (01:54→21:00)
--- NOTE | 2023-01-29 02:27 | NUR ---
Nursing Progress Note; Maureen Problem: Pt. was admitted from [facility] on a 5150 for DTS. Per 5150: You disclosed a plan to your therapist to cut your throat/jugular vein with a knife. You stated you are intent on doing so once you work up the courage and are unable to safety plan. You have a history of past suicide attempts. Pt. scores as a high risk on the [place] Suicide Risk Assessment, however is able to contract for safety while on the unit. Patient is also paranoid that an old neighbor is breaking into her home and stealing her things. Interventions : Maintained a safe and supportive environment, ensured contract for safety, provided clear and simple instructions, provided active listening and positive encouragement, monitored pain and need for intervention, and maintained Q 15min safety checks. Response: Received pt. in the hallway by the NS. Pt is using a FWW and wears a brace on her right LE for foot drop. Pt is pleasant and cooperative with video games storywriter during 1:1. Pt stated she doesnt feel suicidal right now but she wanted to end her life just to get rid of her neighbor who is stealing her things. I had a mirror I was going to use to slice open my jugular. It will make me bleed out really fast. Pt contracts for safety at this time. Pt denies HI/AVH. Pt has paranoia and the delusion that an old neighbor has been entering her home while she is gone. She knows how to get in my house even after I change the locks. She knows a lock de la cruz and pays him with her body. Pt is upset because her sister and daughter dont believe her. Thats why they brought me here. Pt was able to take her HS medications around 0130 after we got them from the pharmacies prototype assembler electronics pharmacist. Monitor for safety. Plan: Pt. requires medication adjustments and a safe and supportive environment.
[2023-01-29 07:00] VITALS: RESP 18; O2SAT 99
[2023-01-29 08:00] VITALS: BP 93/58; PULSE 98; RESP 18; TEMP 96.5; O2SAT 99
[2023-01-29] MEDS ORDERED: dicyclomine 10 MG capsule PO SCH (08:00)
[2023-01-29] MEDS: nystatin/triamcinolone cream 15gm TP SCH ×4 (08:00→21:00)
[2023-01-29] MEDS: DICLOFENAC SODIUM 1% gel 1 APPLIC APPLIC TP SCH ×4 (08:00→21:00)
[2023-01-29 08:20] LABS: CHOL/HDL RATIO 2.4 (0.00-4.99); CHOLESTEROL 186 MG/DL (0-200); HDL CHOLESTEROL 78 MG/DL (35-60); LDL CHOLESTEROL 101 MG/DL (50-100); TRIGLYCERIDES 59 MG/DL (20-135)
[2023-01-29 08:37] LABS: HEMOGLOBIN A1C 5.2 % (4.5-6.2)
[2023-01-29] MEDS: duloxetine 20mg capsule.DR PO SCH (09:33)
[2023-01-29] MEDS: aspirin 81mg, enteric-coated 1 TAB TABLET.DR PO SCH (09:34)
[2023-01-29] MEDS: cholecalciferol (vitamin D3) 400 unit (10mcg) tablet PO SCH (09:35)
--- NOTE | 2023-01-29 11:06 | NUR ---
Malnutrition Consult: Pt admit w/ SI reports 2-13 pounds wt loss w/ decreased intake EVP OPERATIONS per EMR. Pt w/ mild BLE weakness given R hip/L ankle surgical hx, no edema/wounds, current scaled wt appropriate w/ no recent scaled wt hx in EMR, and PO 100% initial regular meals this admit. If PO persists will continue to meeting estimated nutrient needs; at this time pt lacks minimum two malnutrition criteria. Will monitor for further malnutrition criteria this admit. Addendum: 01/29/23 at [address] Amended: Links added.
[2023-01-29] MEDS ORDERED: lamoTRIgine 100mg tablet PO ONE (13:00)
[2023-01-29] MEDS: dicyclomine 10 MG capsule PO SCH ×3 (13:01→21:01)
[2023-01-29] MEDS ORDERED: DICY20TA17 PO (17:24)
--- NOTE | 2023-01-29 17:29 | NUR ---
Nursing Progress Note; Maureen Problem: Pt. was admitted from [facility] on a 5150 for DTS. Per 5150: You disclosed a plan to your therapist to cut your throat/jugular vein with a knife. You stated you are intent on doing so once you work up the courage and are unable to safety plan. You have a history of past suicide attempts. Pt. scores as a high risk on the [place] Suicide Risk Assessment, however is able to contract for safety while on the unit. Patient is also paranoid that an old neighbor is breaking into her home and stealing her things. Interventions : Maintained a safe and supportive environment, ensured contract for safety, provided clear and simple instructions, provided active listening and positive encouragement, monitored pain and need for intervention, and maintained Q 15min safety checks. Response: Received pt in bed sleeping w/o distress at the beginning of the shift. Pt woke for vitals and was cooperative. She continued to rest in bed and came to community room for breakfast and ate well. Pts appetite is good. She is pleasant and smiles in conversation and participated in assessments well. Pt napped throughout the day and spent time in the comm. Rm watching TV, although she commented about the bad language in some of the movies. Pt did not need her Voltarin gel or nystatin today, as she states she uses them only when needed. She met with Courtney ALAMO today and was pleased with med adjustments. Pt not endorsing SI/HI at this time. Pt continues to use FWW effectively throughout the day. Plan: Pt. requires medication adjustments and a safe and supportive environment.
[2023-01-29] MEDS: lurasidone 20mg tablet PO SCH (18:00)
[2023-01-29 19:58] VITALS: BP 95/53; PULSE 83; RESP 14; TEMP 98.1; O2SAT 99
[2023-01-29] MEDS: QUEtiapine 25mg tablet PO SCH (21:00)
[2023-01-29] MEDS: clonazePAM 0.5mg tablet PO SCH (21:01)
--- NOTE | 2023-01-30 05:36 | NUR ---
Nursing Progress Note: Problem: Pt. was admitted from [facility] on a 5150 for DTS. Per 5150: You disclosed a plan to your therapist to cut your throat/jugular vein with a knife. You stated you are intent on doing so once you work up the courage and are unable to safety plan. You have a history of past suicide attempts. Pt. scores as a high risk on the [place] Suicide Risk Assessment, however is able to contract for safety while on the unit. Patient is also paranoid that an old neighbor is breaking into her home and stealing her things. Interventions : Maintained a safe and supportive environment, ensured contract for safety, provided clear and simple instructions, provided active listening and positive encouragement, monitored pain and need for intervention, and maintained Q 15min safety checks. Response: Patient is pleasant and cooperative with care; compliant with medication. Patient continues to endorse SI with a plan to cut her throat. She denied HI, A/VH but reported her daughter believes she has been hallucinating. Patient self-isolates and remained in her room throughout the shift; she is observed sleeping and does not appear to be having difficulty. Plan: Pt. requires medication adjustments and a safe and supportive environment.
[2023-01-30 07:50] VITALS: RESP 18; O2SAT 99
[2023-01-30 08:00] VITALS: BP 103/52; PULSE 65; RESP 18; TEMP 97.2; O2SAT 99
[2023-01-30] MEDS: nystatin/triamcinolone cream 15gm TP SCH ×4 (08:16→21:39)
[2023-01-30] MEDS: duloxetine 20mg capsule.DR PO SCH (08:16)
[2023-01-30] MEDS: dicyclomine 10 MG capsule PO SCH ×4 (08:17→21:31)
[2023-01-30] MEDS: aspirin 81mg, enteric-coated 1 TAB TABLET.DR PO SCH (08:17)
[2023-01-30] MEDS: topiramate 25mg tablet PO SCH ×2 (08:17→21:31)
[2023-01-30] MEDS: cholecalciferol (vitamin D3) 400 unit (10mcg) tablet PO SCH (08:18)
[2023-01-30] MEDS: lamoTRIgine 100mg tablet PO SCH ×2 (08:18→21:32)
[2023-01-30] MEDS: DICLOFENAC SODIUM 1% gel 1 APPLIC APPLIC TP SCH ×4 (08:19→21:32)
[2023-01-30 09:04] LABS: BASOPHILS % (AUTO) 0.3 % (0-1); EOSINOPHILS # (AUTO) 0.1 X10'3 (0-0.9); EOSINOPHILS % (AUTO) 2.9 % (0-6); HEMATOCRIT 40.2 % (35.0-45.0); HEMOGLOBIN 13.3 g/dl (12.0-16.0); LYMPHOCYTES # (AUTO) 1.5 X10'3 (1.1-4.8); LYMPHOCYTES % (AUTO) 41.8 % (21-51); MEAN CORPUSCULAR HEMOGLOBIN 30.7 PG (27.0-31.0); MEAN CORPUSCULAR VOLUME 93.1 FL (78-98); MEAN PLATELET VOLUME 7.3 FL (7.4-10.4); MONOCYTES # (AUTO) 0.3 X10'3 (0-0.9); MONOCYTES % (AUTO) 8.6 % (2-12); NEUTROPHILS # (AUTO) 1.7 X10'3 (1.8-7.7); NEUTROPHILS % (AUTO) 46.4 % (42-75); PLATELET COUNT 235 X10'3 (140-440); RED BLOOD COUNT 4.31 X10'6 (4.20-5.60); RED CELL DISTRIBUTION WIDTH 14.5 % (11.5-14.5); WHITE BLOOD COUNT 3.6 X10'3 (4.5-11.0)
[2023-01-30 09:09] LABS: ALANINE AMINOTRANSFERASE 17 U/L (12-78); ALBUMIN/GLOBULIN RATIO 1.3 (1.1-1.5); ALKALINE PHOSPHATASE 59 IU/L (46-116); ANION GAP 7 (8-16); ASPARTATE AMINO TRANSFERASE 16 U/L (10-37); BILIRUBIN,TOTAL 0.3 MG/DL (0.1-1.0); BLOOD UREA NITROGEN 14 MG/DL (7-18); BUN/CREATININE RATIO 14.9 (10.0-20.0); CALCIUM 8.9 MG/DL (8.5-10.1); CHLORIDE 108 MMOL/L (99-107); CREATININE 0.94 MG/DL (0.40-0.90); GLUCOSE 110 MG/DL (70-104); POTASSIUM 3.5 MMOL/L (3.5-5.1); SODIUM 142 MMOL/L (135-145); TOTAL PROTEIN 7.1 G/DL (6.4-8.2); eCRCL 47 ML/MIN; eGFR 59 ML/MIN
--- NOTE | 2023-01-30 14:42 | NUR ---
Nursing Progress Note: Maureen Problem: Pt. was admitted from [facility] on a 5150 for DTS. Per 5150: You disclosed a plan to your therapist to cut your throat/jugular vein with a knife. You stated you are intent on doing so once you work up the courage and are unable to safety plan. You have a history of past suicide attempts. Pt. scores as a high risk on the [place] Suicide Risk Assessment, however is able to contract for safety while on the unit. Patient is also paranoid that an old neighbor is breaking into her home and stealing her things. Interventions : Maintained a safe and supportive environment, ensured contract for safety, provided clear and simple instructions, provided active listening and positive encouragement, monitored pain and need for intervention, and maintained Q 15min safety checks. Response: Received report from [facility] shift Nurse. Pt is pleasant and cooperative. Pt tolerated meds with no issues noted. Pt denes SI, HI, VH/AH at this time. Pt reported pain to bilateral thighs, feeling tingling and hurts to move. PRN Tylenol given. Bilateral lower extremities swelling on and off for 9 years. Pt up and walking around hallway throughout shift, participated in community room snack and watching TV. Pt is socializing with peers in community room. No s/s of distress at this time. Plan: Pt. requires medication adjustments and a safe and supportive environment.
[2023-01-30] MEDS: lurasidone 20mg tablet PO SCH (17:04)
[2023-01-30 19:40] VITALS: RESP 16; O2SAT 99
[2023-01-30 20:10] VITALS: BP 104/58; PULSE 72; RESP 16; TEMP 98.7; O2SAT 99
[2023-01-30] MEDS: QUEtiapine 25mg tablet PO SCH (21:31)
[2023-01-30] MEDS: clonazePAM 0.5mg tablet PO SCH (21:31)
--- NOTE | 2023-01-31 04:27 | NUR ---
Nursing Progress Note: Problem: Pt. was admitted from [facility] on a 5150 for DTS. Per 5150: You disclosed a plan to your therapist to cut your throat/jugular vein with a knife. You stated you are intent on doing so once you work up the courage and are unable to safety plan. You have a history of past suicide attempts. Pt. scores as a high risk on the [place] Suicide Risk Assessment, however is able to contract for safety while on the unit. Patient is also paranoid that an old neighbor is breaking into her home and stealing her things. Interventions : Maintained a safe and supportive environment, ensured contract for safety, provided clear and simple instructions, provided active listening and positive encouragement, monitored pain and need for intervention, and maintained Q 15min safety checks. Response: Upon arrival to shift noted patient up with walker. Good hygiene noted with clean clothes. Mood appears to be happy as she greeted nurse with a smile. Inquired on how she is doing. Denies SI/HI or AH/VH. Reports having anxiety and SI when she thinks about her neighbor [place]. Believes shes coming into her home and stealing her prescription meds. Patient reports, Its possible Im not thinking straight. Shares an example of why she may not be believing accurately. No behaviors noted. Compliant with HS meds. Later in shift patient c/o pain to legs. Wrapped legs in warm blankets, administered PRN Tylenol. Noted K+ 3.5, administered orange juice. Will continue to monitor. Plan: Pt. requires medication adjustments and a safe and supportive environment.
[2023-01-31 07:00] VITALS: RESP 18; O2SAT 100
[2023-01-31 08:00] VITALS: BP 111/67; PULSE 77; RESP 18; TEMP 97; O2SAT 100
[2023-01-31] MEDS: cholecalciferol (vitamin D3) 400 unit (10mcg) tablet PO SCH (08:19)
[2023-01-31] MEDS: aspirin 81mg, enteric-coated 1 TAB TABLET.DR PO SCH (08:20)
[2023-01-31] MEDS: duloxetine 20mg capsule.DR PO SCH (08:20)
[2023-01-31] MEDS: dicyclomine 10 MG capsule PO SCH ×4 (08:20→21:31)
[2023-01-31] MEDS: lamoTRIgine 100mg tablet PO SCH ×2 (08:20→21:29)
[2023-01-31] MEDS: nystatin/triamcinolone cream 15gm TP SCH ×4 (08:42→21:43)
[2023-01-31] MEDS: DICLOFENAC SODIUM 1% gel 1 APPLIC APPLIC TP SCH ×4 (08:42→21:43)
[2023-01-31] MEDS: topiramate 25mg tablet PO SCH ×2 (09:19→21:31)
[2023-01-31 15:28] LABS: ALBUMIN 3.6 G/DL (3.4-5.0); ANION GAP 11 (8-16); BLOOD UREA NITROGEN 15 MG/DL (7-18); BUN/CREATININE RATIO 18.1 (10.0-20.0); CALCIUM 9.4 MG/DL (8.5-10.1); CHLORIDE 105 MMOL/L (99-107); CREATININE 0.83 MG/DL (0.40-0.90); GLUCOSE 93 MG/DL (70-104); MAGNESIUM 2.2 MG/DL (1.5-2.4); SODIUM 139 MMOL/L (135-145); TOTAL CARBON DIOXIDE 23.3 MMOL/L (24-32); eCRCL 54 ML/MIN; eGFR 68 ML/MIN
[2023-01-31 15:30] LABS: POTASSIUM 4.3 MMOL/L (3.5-5.1)
--- NOTE | 2023-01-31 17:10 | NUR ---
Nursing Progress Note; Maureen Problem: Pt. was admitted from [facility] on a 5150 for DTS. Per 5150: You disclosed a plan to your therapist to cut your throat/jugular vein with a knife. You stated you are intent on doing so once you work up the courage and are unable to safety plan. You have a history of past suicide attempts. Pt. scores as a high risk on the [place] Suicide Risk Assessment, however is able to contract for safety while on the unit. Patient is also paranoid that an old neighbor is breaking into her home and stealing her things. Interventions : Maintained a safe environment, ensured contract for safety, provided pt. with simple instructions, provided active listening and positive encouragement, medication administration, monitored pain and need for intervention, and maintained Q 15min safety checks. Response: Pt. received asleep and awake, and awoke to prepare for breakfast. Pt. continues to use FWW and AFO in place on RLE. Pt. takes her medications without hesitation and requested her calcium supplement be instated from home med list. Hospitalist on unit gave a verbal for Calcium supplement 1500 BID, BMP and magnesium level labs to be drawn. Pt. presents with good eye contact, paranoid about my old neighbor Faye but refuses needing a PRN anxiety. Pt. denies SI, HI, AH, VH and reports I know Im safe here She ate all meals in the community room with cohorts and interacts socially at times, but often keeps to herself. She has good hygiene, well groomed, and wears street clothes. Pain management in place with Voltaren cream routinely administered, pt. reports effective. Plan: Pt. requires medication adjustments and a safe and supportive environment.
[2023-01-31] MEDS: lurasidone 20mg tablet PO SCH (17:21)
[2023-01-31 19:55] VITALS: BP 122/70; PULSE 78; RESP 16; TEMP 97.2; O2SAT 100
[2023-01-31] MEDS: clonazePAM 0.5mg tablet PO SCH (21:28)
[2023-01-31] MEDS: calcium carbonate 500mg tablet PO SCH (21:28)
[2023-01-31] MEDS: QUEtiapine 25mg tablet PO SCH (21:28)
--- NOTE | 2023-02-01 04:11 | NUR ---
Nursing Progress Note: Problem: Pt. was admitted from [facility] on a 5150 for DTS. Per 5150: You disclosed a plan to your therapist to cut your throat/jugular vein with a knife. You stated you are intent on doing so once you work up the courage and are unable to safety plan. You have a history of past suicide attempts. Pt. scores as a high risk on the [place] Suicide Risk Assessment, however is able to contract for safety while on the unit. Patient is also paranoid that an old neighbor is breaking into her home and stealing her things. Interventions : Maintained a safe and supportive environment, ensured contract for safety, provided clear and simple instructions, provided active listening and positive encouragement, monitored pain and need for intervention, and maintained Q 15min safety checks. Response: Patient is pleasant and cooperative with care; compliant with medication. Patient denied SI, HI, A/VH but continues to have concern of "Ramiro" breaking into her house. Patient was more active on the unit and participated in HS snack prior to bed; she reported difficulty getting to sleep d/t both, L and R, hip discomfort. PRN Tylenol and warm blanket provided to soothe the pain. Observed sleeping and does not appear to be having difficulty. Plan: Pt. requires medication adjustments and a safe and supportive environment.
[2023-02-01 07:00] VITALS: RESP 18; O2SAT 99
[2023-02-01] MEDS: aspirin 81mg, enteric-coated 1 TAB TABLET.DR PO SCH (07:52)
[2023-02-01] MEDS: duloxetine 20mg capsule.DR PO SCH (07:52)
[2023-02-01] MEDS: calcium carbonate 500mg tablet PO SCH ×2 (07:52→20:54)
[2023-02-01] MEDS: topiramate 25mg tablet PO SCH ×2 (07:52→20:53)
[2023-02-01] MEDS: cholecalciferol (vitamin D3) 400 unit (10mcg) tablet PO SCH (07:52)
[2023-02-01] MEDS: dicyclomine 10 MG capsule PO SCH ×4 (07:52→20:53)
[2023-02-01] MEDS: lamoTRIgine 100mg tablet PO SCH ×2 (07:55→20:59)
[2023-02-01 08:00] VITALS: BP 106/60; PULSE 81; RESP 16; TEMP 98.6; O2SAT 99
[2023-02-01] MEDS: nystatin/triamcinolone cream 15gm TP SCH ×4 (08:00→20:59)
[2023-02-01] MEDS: DICLOFENAC SODIUM 1% gel 1 APPLIC APPLIC TP SCH ×4 (08:00→20:59)
--- NOTE | 2023-02-01 09:14 | NUR ---
Initial: Pt admit for psychosis, likely dx of schizoaffective bipolar disorder per H&P. Pt on a regular diet with slightly fluctuating PO intake however overall eating well, documented with average 88% PO intake of meals meeting estimated nutrient needs. Per EMR LBM 01/30 and pt denies GI symptoms. PRN bowel care available. No nutrition intervention implemented at this time. Will continue to follow and make recommendations as appropriate. Recommendations: 1) Continue regular diet 2) Bowel care PRN 3) Weekly scaled weights Addendum: 02/01/23 at [address] Amended: Links added.
--- NOTE | 2023-02-01 11:15 | NUR ---
PSYCHOSOCIAL ASSESSMENT Pt. is a 67 year old white female and was admitted from [facility] on a 5150 for DTS. Per 5150 Pt. disclosed a plan to her therapist to cut her throat/jugular vein with a knife. Pt. has a history of past suicide attempts. Client was experiencing paranoia and believes a previous neighbor is breaking into her household to mess with her and steal her belongings. She believes the previous neighbor is controlling her phone and electronics. Client stated that shes had enough and the only way to get away from the situation is to kill herself. Pt possibly struggling with med compliance, as she states that she thinks a previous roommate sneaks into her house and re-arranges her pill bottles. Pt denied feeling suicidal today, reported she only feels suicidal when she thinks about Faye (neighbor) and that no one believes her. Her recent tox screening indicates negative in all categories. No indication of EDISON. This Manager Continuous Improvement spoke with her daughter who reported that she has changed her Psychiatrist in the last year and because of this may not have been seeing a Psychiatrist regularly which means she may not have been consistently taking all her medications. Her daughter reported that this current obsession with Faye has really become a problem in that lat 1-2 years. Her daughter is feeling very frustrated with the situation and doesn't know what to do about it. Pt lives in her own apartment, her daughter lives in the same apartment complex. She has an [facility] worker who comes in twice a week and helps with cleaning, cooking and laundry. She reported that she just started going to a new therapist after years with the same one. She reported that this is a hard transition because her other therapist believed her about her neighbor and not many people do believe her. She isn't' sure her new therapist believes her. Pt lives off her income from her ex-husbands care home. MSE: Pt. was dressed appropriately for the situation wearing her own clothes. Her hygiene was WNL. Her thought content contained paranoid content in regards to her neighbor but she was able to have a linear thought process and shared in a grounded way about other parts of her life. Her demeanor was calm, compliant and open to this Manager Continuous Improvement. She gave verbal permission for me to call her daughter. She was alert and oriented X 4. Her mood was upbeat, reporting she feels pretty good today. Bree Pham, PHYSICIAN AIDE
--- NOTE | 2023-02-01 16:57 | NUR ---
Nursing Progress Note: Maureen Problem: Pt. was admitted from [facility] on a 5150 for DTS. Per 5150: You disclosed a plan to your therapist to cut your throat/jugular vein with a knife. You stated you are intent on doing so once you work up the courage and are unable to safety plan. You have a history of past suicide attempts. Pt. scores as a high risk on the [place] Suicide Risk Assessment, however is able to contract for safety while on the unit. Patient is also paranoid that an old neighbor is breaking into her home and stealing her things. Interventions : Maintained a safe environment, ensured contract for safety, provided pt. with simple instructions, provided active listening and positive encouragement, medication administration, monitored pain and need for intervention, and maintained Q 15min safety checks. Response: Pt. received asleep and awoke to attend breakfast. Pt. later took her medications without hesitation, and continues her nystatin cream and Voltaren gel for pain. Pt. denies SI, HI, AH, but endorses VH stating I see bugs, like spiders crawling around, even in the dining room She also perseverates on Faye, and dealing with the problems shes caused Pt. reports her DC plan is to return home. Pt. presents with good eye contact, pleasant and interested in talking. She spent most of the shift out of her room in common areas and continues to use her AFO and FWW to ambulate adlib. Pt. has good hygiene, well-groomed and wears street clothes. Plan: Pt. requires medication adjustments and a safe and supportive environment.
[2023-02-01] MEDS: lurasidone 20mg tablet PO SCH (17:18)
[2023-02-01 19:25] VITALS: BP 112/67; PULSE 72; RESP 16; TEMP 97.4; O2SAT 99
[2023-02-01] MEDS: QUEtiapine 25mg tablet PO SCH (20:52)
[2023-02-01] MEDS: clonazePAM 0.5mg tablet PO SCH (20:53)
--- NOTE | 2023-02-02 04:00 | NUR ---
Nursing Progress Note: Problem: Pt. was admitted from [facility] on a 5150 for DTS. Per 5150: You disclosed a plan to your therapist to cut your throat/jugular vein with a knife. You stated you are intent on doing so once you work up the courage and are unable to safety plan. You have a history of past suicide attempts. Pt. scores as a high risk on the [place] Suicide Risk Assessment, however is able to contract for safety while on the unit. Patient is also paranoid that an old neighbor is breaking into her home and stealing her things. Interventions : Maintained a safe and supportive environment, ensured contract for safety, provided clear and simple instructions, provided active listening and positive encouragement, monitored pain and need for intervention, and maintained Q 15min safety checks. Response: Patient is pleasant and cooperative with care; compliant with medication. No reports of SI, HI, A/VH; no apparent delusions expressed this shift. Patient was social with peers and participated in HS snack prior to bed; observed sleeping and does not appear to be having difficulty. Plan: Pt. requires medication adjustments and a safe and supportive environment.
[2023-02-02 07:00] VITALS: RESP 16; O2SAT 100
[2023-02-02 08:00] VITALS: BP 114/68; PULSE 83; RESP 16; TEMP 98.2; O2SAT 100
[2023-02-02] MEDS: nystatin/triamcinolone cream 15gm TP SCH ×4 (08:49→20:50)
[2023-02-02] MEDS: DICLOFENAC SODIUM 1% gel 1 APPLIC APPLIC TP SCH ×4 (08:49→20:51)
[2023-02-02] MEDS: calcium carbonate 500mg tablet PO SCH ×2 (08:49→20:48)
[2023-02-02] MEDS: duloxetine 20mg capsule.DR PO SCH (08:50)
[2023-02-02] MEDS: cholecalciferol (vitamin D3) 400 unit (10mcg) tablet PO SCH (08:50)
[2023-02-02] MEDS: aspirin 81mg, enteric-coated 1 TAB TABLET.DR PO SCH (08:50)
[2023-02-02] MEDS: lamoTRIgine 100mg tablet PO SCH ×2 (08:51→20:48)
[2023-02-02] MEDS: dicyclomine 10 MG capsule PO SCH ×4 (08:51→20:48)
[2023-02-02] MEDS: topiramate 25mg tablet PO SCH ×2 (08:57→20:50)
--- NOTE | 2023-02-02 17:07 | NUR ---
Nursing Progress Note: Maureen Problem: Pt. was admitted from [facility] on a 5150 for DTS. Per 5150: You disclosed a plan to your therapist to cut your throat/jugular vein with a knife. You stated you are intent on doing so once you work up the courage and are unable to safety plan. You have a history of past suicide attempts. Pt. scores as a high risk on the [place] Suicide Risk Assessment, however is able to contract for safety while on the unit. Patient is also paranoid that an old neighbor is breaking into her home and stealing her things. Interventions : Maintained a safe environment, ensured contract for safety, provided pt. with simple instructions, provided active listening and positive encouragement, medication administration, monitored pain and need for intervention, and maintained Q 15min safety checks. Response: Pt. received awake and getting ready for the day. Pt. denies SI, HI, AH, VH symptoms and reports I havent seen bugs since yesterday Pt is future [employer] plans stating I have to start [place] stockings soon Pt. took her medications without hesitation, has good eye contact, and perseverated on her past medical problems in the past. Pt. ate all meals in the community room with cohorts, spent most of the day sitting in common areas among cohorts. She has good hygiene, well groomed, and is wearing street clothes. Pt. continues to ambulate adlib with the assistance of FWW and uses an AFO to the Rt. lower extremity. Pt. continues to receive routine Voltaren gel for pain management with good effects. Plan: Pt. requires medication adjustments and a safe and supportive environment.
[2023-02-02] MEDS: lurasidone 20mg tablet PO SCH (17:26)
[2023-02-02 19:06] VITALS: BP 120/64; PULSE 79; RESP 16; TEMP 97.6; O2SAT 99
[2023-02-02] MEDS: clonazePAM 0.5mg tablet PO SCH (20:48)
[2023-02-02] MEDS: QUEtiapine 25mg tablet PO SCH (20:48)
--- NOTE | 2023-02-03 03:05 | NUR ---
Nursing Progress Note: Problem: Pt. was admitted from [facility] on a 5150 for DTS. Per 5150: You disclosed a plan to your therapist to cut your throat/jugular vein with a knife. You stated you are intent on doing so once you work up the courage and are unable to safety plan. You have a history of past suicide attempts. Pt. scores as a high risk on the [place] Suicide Risk Assessment, however is able to contract for safety while on the unit. Patient is also paranoid that an old neighbor is breaking into her home and stealing her things. Interventions : Maintained a safe and supportive environment, ensured contract for safety, provided clear and simple instructions, provided active listening and positive encouragement, monitored pain and need for intervention, and maintained Q 15min safety checks. Response: Patient is pleasant and cooperative with care; compliant with medication. No SI, HI, A/VH reported; no apparent delusions expressed. Patient was social with peers and participated in HS snack prior to bed; observed sleeping and does not appear to be having difficulty. Plan: Pt. requires medication adjustments and a safe and supportive environment.
[2023-02-03 07:00] VITALS: RESP 16; O2SAT 99
[2023-02-03 08:00] VITALS: BP 107/62; PULSE 84; RESP 16; TEMP 98.3; O2SAT 99
[2023-02-03] MEDS: duloxetine 20mg capsule.DR PO SCH (08:39)
[2023-02-03] MEDS: dicyclomine 10 MG capsule PO SCH ×4 (08:39→20:26)
[2023-02-03] MEDS: calcium carbonate 500mg tablet PO SCH ×2 (08:40→20:27)
[2023-02-03] MEDS: lamoTRIgine 100mg tablet PO SCH ×2 (08:40→20:28)
[2023-02-03] MEDS: cholecalciferol (vitamin D3) 400 unit (10mcg) tablet PO SCH (08:40)
[2023-02-03] MEDS: aspirin 81mg, enteric-coated 1 TAB TABLET.DR PO SCH (08:40)
[2023-02-03] MEDS: topiramate 25mg tablet PO SCH ×2 (08:50→20:27)
[2023-02-03] MEDS: nystatin/triamcinolone cream 15gm TP SCH ×4 (08:51→20:29)
[2023-02-03] MEDS: DICLOFENAC SODIUM 1% gel 1 APPLIC APPLIC TP SCH ×4 (08:51→20:28)
--- NOTE | 2023-02-03 15:50 | NUR ---
Nursing Progress Note: Problem : Pt. was admitted from [facility] on a 5150 for DTS. Per 5150: You disclosed a plan to your therapist to cut your throat/jugular vein with a knife. You stated you are intent on doing so once you work up the courage and are unable to safety plan. You have a history of past suicide attempts. Pt. scores as a high risk on the [place] Suicide Risk Assessment, however is able to contract for safety while on the unit. Patient is also paranoid that an old neighbor is breaking into her home and stealing her things. Interventions :Maintained a safe and supportive environment, ensured contract for safety, provided clear and simple instructions, provided active listening and positive encouragement, maintained fall precautions, and maintained Q15min safety checks. Response : Received pt. sleeping in bed at the beginning of the shift, she awoke and attended breakfast in the Group Room. Pt. continues to use a forward wheel walker for ambulation for bilateral leg weakness with effectiveness. Pt. remained up throughout much of the shift and was observed to be interacting appropriately with others. 1:1 was completed later at bedside, pt. presents as cooperative and pleasant. She denies any further S/I, however states, "I find comfort in pain." Pt. continues on to talk about how she used to cut herself and burn herself to inflict pain, however now finds comfort in snapping a rubber band on her wrist and does not plan to engage in anymore self harm behaviors. Pt. denies any A/V/PACK, however continues to make what appear to be fixed delusional statements regarding her neighbor wanting to harm her. Pt. states, "She comes into my house every time I'm gone and takes my refills." Pt. continues on in a tangental manner to talk about how her family does not believe her and about how she believes her neighbor is sneaking into the complex she lives at and staying with different individuals. Plan : Pt. continues to require a safe and supportive environment.
[2023-02-03] MEDS: lurasidone 20mg tablet PO SCH (18:03)
[2023-02-03 19:40] VITALS: RESP 14; O2SAT 100
[2023-02-03 20:00] VITALS: BP 140/59; PULSE 69; RESP 14; TEMP 97.6; O2SAT 100
[2023-02-03] MEDS: QUEtiapine 25mg tablet PO SCH (20:27)
[2023-02-03] MEDS: clonazePAM 0.5mg tablet PO SCH (20:28)
--- NOTE | 2023-02-04 01:33 | NUR ---
Nursing Progress Note:Maureen Problem : Pt. was admitted from [facility] on a 5150 for DTS. Per 5150: You disclosed a plan to your therapist to cut your throat/jugular vein with a knife. You stated you are intent on doing so once you work up the courage and are unable to safety plan. You have a history of past suicide attempts. Pt. scores as a high risk on the [place] Suicide Risk Assessment, however is able to contract for safety while on the unit. Patient is also paranoid that an old neighbor is breaking into her home and stealing her things. Interventions : Maintained a safe and supportive environment, ensured contract for safety, provided clear and simple instructions, provided active listening and positive encouragement, maintained fall precautions, and maintained Q15min safety checks. Response : Received report from AM shift. Pt in community room eating dinner. Patient is pleasant and cooperative. Pt tolerated meds with no issues noted. Pt participate in snack in community with other peers watching TV. Pt socializing with peers and walking the halls. Pt denies SI, HI VH/AH at this time. No s/s of distress at this time. Plan : Pt. continues to require a safe and supportive environment.
[2023-02-04 07:00] VITALS: RESP 16; O2SAT 99
[2023-02-04] MEDS: dicyclomine 10 MG capsule PO SCH ×4 (08:25→20:26)
[2023-02-04] MEDS: cholecalciferol (vitamin D3) 400 unit (10mcg) tablet PO SCH (08:26)
[2023-02-04] MEDS: aspirin 81mg, enteric-coated 1 TAB TABLET.DR PO SCH (08:26)
[2023-02-04] MEDS: calcium carbonate 500mg tablet PO SCH ×2 (08:26→20:27)
[2023-02-04] MEDS: duloxetine 20mg capsule.DR PO SCH (08:26)
[2023-02-04] MEDS: lamoTRIgine 100mg tablet PO SCH ×2 (08:26→20:26)
[2023-02-04] MEDS: DICLOFENAC SODIUM 1% gel 1 APPLIC APPLIC TP SCH ×4 (08:27→20:29)
[2023-02-04] MEDS: nystatin/triamcinolone cream 15gm TP SCH ×4 (08:27→20:28)
[2023-02-04] MEDS: topiramate 25mg tablet PO SCH ×2 (08:31→20:27)
[2023-02-04 09:20] VITALS: BP 118/60; PULSE 83; RESP 16; TEMP 98.6; O2SAT 99
--- NOTE | 2023-02-04 17:10 | NUR ---
Nursing Progress Note: Problem : Pt. was admitted from [facility] on a 5150 for DTS. Per 5150: You disclosed a plan to your therapist to cut your throat/jugular vein with a knife. You stated you are intent on doing so once you work up the courage and are unable to safety plan. You have a history of past suicide attempts. Pt. scores as a high risk on the [place] Suicide Risk Assessment, however is able to contract for safety while on the unit. Patient is also paranoid that an old neighbor is breaking into her home and stealing her things. Interventions :Maintained a safe and supportive environment, ensured contract for safety, provided clear and simple instructions, provided active listening and positive encouragement, maintained fall precautions, and maintained Q15min safety checks. Response : Received pt. sleeping in bed at the beginning of the shift, she awoke and attended breakfast in the Group Room. Pt. continues to use a forward wheel walker for ambulation for bilateral leg weakness with effectiveness. Pt. again remained up throughout much of the shift in the Group Room interacting appropriately with others. She attended group. 1:1 was completed later at bedside, pt. continues to present as cooperative and pleasant. She denies any S/I and states, "I just can't wait to get home and start knitting stockings." Pt. again makes fixed delusional statements regarding her former neighbor stating, "She just wants to take my stuff." Pt. then continued on in a somewhat hyperverbal manner to talk about how she plans to talk to her unit manager about not allowing her former neighbor back on the property since she no longer lives there. Pt. remained up throughout the day interacting with others. Plan : Pt. continues to require medication adjustments and a safe and supportive environment.
[2023-02-04] MEDS: lurasidone 20mg tablet PO SCH (18:08)
[2023-02-04 19:50] VITALS: RESP 80; O2SAT 97
[2023-02-04] MEDS: clonazePAM 0.5mg tablet PO SCH (20:26)
[2023-02-04] MEDS: QUEtiapine 25mg tablet PO SCH (20:27)
[2023-02-04 20:50] VITALS: BP 119/58; PULSE 77; RESP 16; TEMP 97.6; O2SAT 98
--- NOTE | 2023-02-05 03:41 | NUR ---
Nursing Progress Note:Maureen Problem : Pt. was admitted from [facility] on a 5150 for DTS. Per 5150: You disclosed a plan to your therapist to cut your throat/jugular vein with a knife. You stated you are intent on doing so once you work up the courage and are unable to safety plan. You have a history of past suicide attempts. Pt. scores as a high risk on the [place] Suicide Risk Assessment, however is able to contract for safety while on the unit. Patient is also paranoid that an old neighbor is breaking into her home and stealing her things. Interventions :Maintained a safe and supportive environment, ensured contract for safety, provided clear and simple instructions, provided active listening and positive encouragement, maintained fall precautions, and maintained Q15min safety checks. Response : Received report from AM shift. Pt eating in community room. Pt pleasant and cooperative, tolerated meds with no issues noted. Pt reported no pain this shift. Pt participate in snack and spent most of the time in community room watching TV. Pt social with peers and staff this evening. Pt denies SI, HI, VH/AH at this time. Pt reported when she was agitated she would get relief from the pain of snapping a rubber band on her wrist and that would make her feel better. Pt reported the psychiatrist told her as long as she in not intentionally trying to harm herself. Pt reported she does not get relief from anything else. Pt reported daughter will be visiting tomorrow. Plan : Pt. continues to require medication adjustments and a safe and supportive environment.
[2023-02-05 07:30] VITALS: BP 116/56; PULSE 92; RESP 16; TEMP 98.3; O2SAT 98
[2023-02-05] MEDS: cholecalciferol (vitamin D3) 400 unit (10mcg) tablet PO SCH (08:11)
[2023-02-05] MEDS: dicyclomine 10 MG capsule PO SCH ×4 (08:11→20:12)
[2023-02-05] MEDS: aspirin 81mg, enteric-coated 1 TAB TABLET.DR PO SCH (08:11)
[2023-02-05] MEDS: duloxetine 20mg capsule.DR PO SCH (08:11)
[2023-02-05] MEDS: calcium carbonate 500mg tablet PO SCH ×2 (08:12→20:11)
[2023-02-05] MEDS: lamoTRIgine 100mg tablet PO SCH ×2 (08:13→20:11)
[2023-02-05] MEDS: topiramate 25mg tablet PO SCH ×2 (08:15→20:13)
[2023-02-05] MEDS: nystatin/triamcinolone cream 15gm TP SCH ×4 (08:50→20:14)
[2023-02-05] MEDS: DICLOFENAC SODIUM 1% gel 1 APPLIC APPLIC TP SCH ×4 (08:50→20:15)
--- NOTE | 2023-02-05 15:24 | NUR ---
Nursing Progress Note: Maureen Problem : Pt. was admitted from [facility] on a 5150 for DTS. Per 5150: You disclosed a plan to your therapist to cut your throat/jugular vein with a knife. You stated you are intent on doing so once you work up the courage and are unable to safety plan. You have a history of past suicide attempts. Pt. scores as a high risk on the [place] Suicide Risk Assessment, however is able to contract for safety while on the unit. Patient is also paranoid that an old neighbor is breaking into her home and stealing her things. Interventions :Maintained a safe and supportive environment, ensured contract for safety, provided clear and simple instructions, provided active listening and positive encouragement, maintained fall precautions, and maintained Q15min safety checks. Response : Patient received sitting in community room socializing at change of shift. Patient was cooperative with morning medications. Patient was polite and was observed pacing halls with other patients or sitting in her room reading magazines. Patient denies si/hi. Patient appears cheerful Plan : Pt. continues to require medication adjustments and a safe and supportive environment.
[2023-02-05] MEDS ORDERED: cetirizine 10mg tablet PO ONE (16:22)
[2023-02-05] MEDS: lurasidone 20mg tablet PO SCH (17:24)
[2023-02-05 20:00] VITALS: BP 150/62; PULSE 70; RESP 16; TEMP 97.3; O2SAT 98
[2023-02-05] MEDS: clonazePAM 0.5mg tablet PO SCH (20:11)
[2023-02-05] MEDS: QUEtiapine 25mg tablet PO SCH (20:16)
--- NOTE | 2023-02-06 03:23 | NUR ---
Nursing Progress Note: Problem: Pt. was admitted from [facility] on a 5150 for DTS. Per 5150: You disclosed a plan to your therapist to cut your throat/jugular vein with a knife. You stated you are intent on doing so once you work up the courage and are unable to safety plan. You have a history of past suicide attempts. Pt. scores as a high risk on the [place] Suicide Risk Assessment, however is able to contract for safety while on the unit. Patient is also paranoid that an old neighbor is breaking into her home and stealing her things. Interventions: Maintained a safe and supportive environment, ensured contract for safety, provided clear and simple instructions, provided active listening and positive encouragement, maintained fall precautions, and maintained Q15min safety checks. Response: upon shift patient was seen in hallway ambulating self to TV room. During 1:1, patient stated she organized all the papers in the TV room so it is easier for her peers to pick which paper they want. Patient received HS medications with no complaints to note. Patient ate all meals and participated in HS snack. Patient refuses to be experiencing hallucinations, voices, and bad thoughts. Patient woke up in middle of night because door was not cracked. Patient stayed in bed for remainder of night with no complaints to note. Plan: Pt. continues to require medication adjustments and a safe and supportive environment.
[2023-02-06 07:20] VITALS: BP 109/55; PULSE 84; RESP 20; TEMP 98.2; O2SAT 98
[2023-02-06] MEDS: cetirizine 10mg tablet PO SCH (08:15)
[2023-02-06] MEDS: lamoTRIgine 100mg tablet PO SCH ×2 (08:15→20:44)
[2023-02-06] MEDS: cholecalciferol (vitamin D3) 400 unit (10mcg) tablet PO SCH (08:15)
[2023-02-06] MEDS: dicyclomine 10 MG capsule PO SCH ×4 (08:15→20:45)
[2023-02-06] MEDS: calcium carbonate 500mg tablet PO SCH ×2 (08:15→20:43)
[2023-02-06] MEDS: duloxetine 20mg capsule.DR PO SCH (08:15)
[2023-02-06] MEDS: aspirin 81mg, enteric-coated 1 TAB TABLET.DR PO SCH (08:15)
[2023-02-06] MEDS: topiramate 25mg tablet PO SCH ×2 (08:15→20:42)
[2023-02-06] MEDS: DICLOFENAC SODIUM 1% gel 1 APPLIC APPLIC TP SCH ×4 (08:16→20:45)
[2023-02-06] MEDS: nystatin/triamcinolone cream 15gm TP SCH ×4 (08:17→20:46)
[2023-02-06] MEDS: lurasidone 20mg tablet PO SCH (17:04)
--- NOTE | 2023-02-06 17:13 | NUR ---
NURSING PROGRESS NOTE: Problem : Pt. was admitted from [facility] on a 5150 for DTS. Per 5150: You disclosed a plan to your therapist to cut your throat/jugular vein with a knife. You stated you are intent on doing so once you work up the courage and are unable to safety plan. You have a history of past suicide attempts. Pt. scores as a high risk on the [place] Suicide Risk Assessment, however is able to contract for safety while on the unit. Patient is also paranoid that an old neighbor is breaking into her home and stealing her things. Interventions :Maintained a safe and supportive environment, ensured contract for safety, provided clear and simple instructions, provided active listening and positive encouragement, maintained fall precautions, and maintained Q15min safety checks. Response : Received patient awake in her room at shift change. Pt was compliant with care and medication. Pt is at base line and is being discharged tomorrow. Pt states she is looking forward to getting back to knitting. Pt is visible on unit, friendly and polite with staff and peers. Pt denies all psychotic sx. Plan : Patient is at baseline and will be discharged tomorrow.
[2023-02-06 19:00] VITALS: RESP 16; O2SAT 98
[2023-02-06 20:00] VITALS: BP 105/51; PULSE 70; RESP 16; TEMP 98.1; O2SAT 98
[2023-02-06] MEDS: QUEtiapine 25mg tablet PO SCH (20:43)
[2023-02-06] MEDS: clonazePAM 0.5mg tablet PO SCH (20:44)
--- NOTE | 2023-02-07 03:26 | NUR ---
Nursing progress note: Maureen Problem: Pt. was admitted from [facility] on a 5150 for DTS. Per 5150: You disclosed a plan to your therapist to cut your throat/jugular vein with a knife. You stated you are intent on doing so once you work up the courage and are unable to safety plan. You have a history of past suicide attempts. Pt. scores as a high risk on the [place] Suicide Risk Assessment, however is able to contract for safety while on the unit. Patient is also paranoid that an old neighbor is breaking into her home and stealing her things. Interventions: Maintained a safe and supportive environment, ensured contract for safety, provided clear and simple instructions, provided active listening and positive encouragement, maintained fall precautions, and maintained Q15min safety checks. Response: upon shift patient was seen in room chatting with roommate, when approached they both decided they would head to the TV RM to enjoy dinner together. Patient seemed as pleasant as previous day, patient denies any psychosis symptoms. Patient states I am better now! patient took part in HS snack and participated in putting together a puzzle with roommate. Patient was cooperative with medication regimen and had no complaints of any sort to note. Patient currently in bed with eyes closed lying on right side. Plan: Patient is at baseline and will be discharged tomorrow.
[2023-02-07 07:55] VITALS: BP 119/65; PULSE 107; RESP 16; TEMP 98.2; O2SAT 98
[2023-02-07] MEDS: nystatin/triamcinolone cream 15gm TP SCH ×2 (08:02→12:45)
[2023-02-07] MEDS: calcium carbonate 500mg tablet PO SCH (08:02)
[2023-02-07] MEDS: DICLOFENAC SODIUM 1% gel 1 APPLIC APPLIC TP SCH ×2 (08:02→12:45)
[2023-02-07] MEDS: cetirizine 10mg tablet PO SCH (08:02)
[2023-02-07] MEDS: aspirin 81mg, enteric-coated 1 TAB TABLET.DR PO SCH (08:02)
[2023-02-07] MEDS: dicyclomine 10 MG capsule PO SCH ×2 (08:02→12:47)
[2023-02-07] MEDS: topiramate 25mg tablet PO SCH (08:03)
[2023-02-07] MEDS: lamoTRIgine 100mg tablet PO SCH (08:03)
[2023-02-07] MEDS: duloxetine 20mg capsule.DR PO SCH (08:03)
[2023-02-07] MEDS: cholecalciferol (vitamin D3) 400 unit (10mcg) tablet PO SCH (09:14)
[2023-02-07] MEDS ORDERED: DULO40CA2 PO (11:45)
[2023-02-07] MEDS ORDERED: LURA60TA4 PO (11:45)
[2023-02-07] MEDS ORDERED: CETI10TA14 PO (11:45)
--- NOTE | 2023-02-07 17:55 | NUR ---
DISCHARGE NOTE: Pt left unit at 1705. Pt was escorted to lobby where pt's daughter picked her up. Pt left with all personal belongings. Final Block Press Operator reinforced the importance of pt keeping all follow up appointments. Pt verbalized understanding.
== END 2023-02-07 17:35 | disposition home or self-care (01) | DRG 885 ==
LOC: ADULT MH 15:35
PROVIDERS: ADMIT Psychiatry & Neurology Psychiatry; ATTEND Psychiatry & Neurology Psychiatry
DX: F25.9 Schizoaffective disorder, unspecified (principal); F79 Unspecified intellectual disabilities; F31.4 Bipolar disorder, current episode depressed, severe, without psychotic features; B49 Unspecified mycosis; R45.851 Suicidal ideations; G40.909 Epilepsy, unspecified, not intractable, without status epilepticus; Z60.2 Problems related to living alone; G89.29 Other chronic pain; E11.40 Type 2 diabetes mellitus with diabetic neuropathy, unspecified; K58.9 Irritable bowel syndrome, unspecified; M25.551 Pain in right hip; R51.9 Headache, unspecified; M21.371 Foot drop, right foot; F60.3 Borderline personality disorder; Z96.641 Presence of right artificial hip joint; Z82.49 Family history of ischemic heart disease and other diseases of the circulatory system; Z80.1 Family history of malignant neoplasm of trachea, bronchus and lung; Z80.8 Family history of malignant neoplasm of other organs or systems; Z81.8 Family history of other mental and behavioral disorders; Z83.3 Family history of diabetes mellitus; Z90.710 Acquired absence of both cervix and uterus; Z79.899 Other long term (current) drug therapy; Z79.82 Long term (current) use of aspirin
CPT/HCPCS: 36415; 80048; 80053; 80061; 83036; 83735; 85025; 87081

== ENCOUNTER 2024-01-30 17:34 | Emergency (ER) | payer MEDICARE, MEDICAID ==
[~2024-01-30] VITALS: Ht 154.9 cm; Wt 60.5 kg
[~2024-01-30 17:34] MED LIST changes: -BUPR100T5 PO; +CETI10TA14 PO; +CHOL10CA2 PO; -CLON-528 PO; +CLON-850 PO; +DICY20TA17 PO; +DULO40CA2 PO; +LAMO200T10 PO; +LURA60TA4 PO; +NYST15CR37 TP; +OSC500T PO; -TOPI-253 PO; +TOPI25TA15 PO
[2024-01-30 18:11] VITALS: BP 129/71; PULSE 68; RESP 18; O2SAT 100
[2024-01-30] MEDS ORDERED: ONDA-243 PO (19:41)
[2024-01-30] MEDS ORDERED: HYDR-3965 PO (19:41)
[2024-01-30 19:49] VITALS: TEMP 98.1
== END 2024-01-30 19:52 | disposition home or self-care (01) ==
LOC: ER 17:34
DX: S20.212A Contusion of left front wall of thorax, initial encounter (principal); J44.9 Chronic obstructive pulmonary disease, unspecified; F31.9 Bipolar disorder, unspecified; E11.9 Type 2 diabetes mellitus without complications; Z98.890 Other specified postprocedural states; Z90.710 Acquired absence of both cervix and uterus; Z79.82 Long term (current) use of aspirin; Z79.899 Other long term (current) drug therapy; W18.39XA Other fall on same level, initial encounter; Y93.89 Activity, other specified; Y92.89 Other specified places as the place of occurrence of the external cause; Y99.8 Other external cause status
CPT/HCPCS: 71046; 99283

== ENCOUNTER 2024-11-19 09:13 | Inpatient (IN) | payer MEDICARE, MEDICAID ==
[~2024-11-19] VITALS: Ht 154.9 cm; Wt 60.9 kg
[2024-11-19 03:10] VITALS: RESP 22; O2SAT 98
[~2024-11-19 09:13] MED LIST changes: -NYST15CR37 TP; +NYST15CR50 TP; +ONDA-243 PO
--- NOTE | 2024-11-19 09:21 | ELECTROCARDIOGRAPH REPORT ---
[facility] Test Date: 2024-11-19 Test Time: 09:18:46 Pat Name: VANGIE CISSE Department: [facility]- Room: [place] [id number] Gender: F Surgery Specialist: : [id number] Requested By: PHILIP GORDILLO Order Number: [id number] Reading MD: Dr. Nixon Martinez Measurements Intervals [place] Rate: 77 P: 67 RI: 180 QRS: 72 QRSD: 88 T: 71 QT: 431 QTc: 488 Interpretive Statements Sinus rhythm Consider left ventricular hypertrophy Borderline prolonged QT interval Electronically Signed On 11-24-2024 13:45:[address] Nixon Martinez Please click the below link to view image of tracing.
[2024-11-19] MEDS ORDERED: DEXTROSE 5% IV ONE ×2 (09:25→12:00)
[2024-11-19] MEDS ORDERED: ACETYLCYSTEINE IV ONE ×2 (09:25→12:00)
[2024-11-19] MEDS ORDERED: WATER IV ONE ×2 (09:25→12:00)
[2024-11-19] MEDS ORDERED: acetylcysteine IV (Acetadote) 0 MG in dextrose 5%-water 1,000 ML IV ONE (09:25)
--- NOTE | 2024-11-19 09:30 | Physician Documentation ---
History of Present Illness ~ Stated Complaint: OD Time Seen by MD: 09:21 OK to notify your PCP?: Yes Primary Medical Doctor: EFREN AZMORA 69-year-old female presenting with EMS after an it overdose of Tylenol. As per report the patient took 96 tablets of 500 mg Tylenol yesterday around noon. She was attempting to kill herself. Currently patient states that she is no longer suicidal and regrets doing this. Reports that she was very upset with her daughter and grandson at the time. She describes no physical symptoms at this time such as abdominal pain, nausea, vomiting or any other associated symptoms. Medication Reconciliation Allergies: Coded Allergies: No Known Allergies (Unverified , 01/30/24) Scheduled Ascorbic Acid (Vitamin C), 1 TAB PO DAILY, (Reported) Aspirin (Aspirin EC), 1 TABLET PO DAILY, (Reported) Biotin (Biotin), 1 TAB PO DAILY, (Reported) Calcium Carbonate* (Oscal*), 3 TAB PO BID, (Reported) Cetirizine HCl (Cetirizine HCl), 1 TAB PO DAILY, (Reported) Cholecalciferol (Vitamin D3) (Vitamin D3), 1 TAB PO DAILY, (Reported) Cholecalciferol (Vitamin D3) (Vitamin D3), 1 CAP PO DAILY, (Reported) Clonazepam (Klonopin), 0.5 MG PO HS, (Reported) Dicyclomine HCl (Dicyclomine HCl), 1 TAB PO QID, (Reported) Donepezil Hcl (Aricept), 1 TAB PO HS, (Reported) Duloxetine Hcl* (Cymbalta*), 80 MG PO DAILY, (Reported) Lamotrigine (Lamotrigine), 1 TAB PO BID, (Reported) Primidone (Mysoline), 1 TAB PO HS, (Reported) Quetiapine Fumarate (Quetiapine Fumarate), 1 TAB PO HS, (Reported) Topiramate (Topamax), 3 TAB PO DAILY, (Reported) Vitamin E Mixed (Vitamin E), 1 TAB PO DAILY, (Reported) Zinc Gluconate (Zinc Gluconate), 25 MG PO DAILY, (Reported) [B Complex With B-12], 1 TABLET PO DAILY, (Reported) Discontinued Medications Calcium Carbonate* (Oscal*), 3 TAB PO BID Discontinued Reason: Other Cetirizine HCl (Cetirizine HCl), 1 TAB PO DAILY Discontinued Reason: Other Diclofenac Sodium (Diclofenac Sodium), 2 GM TOP QID, (Reported) Discontinued Reason: Other Duloxetine HCl (Duloxetine HCl), 1 CAP PO DAILY Discontinued Reason: Other Lurasidone HCl (Lurasidone HCl), 1 TAB PO QDD Discontinued Reason: Other Nystatin/Triamcin Cream* (Mycolog II Cream*), 2 APPLIC TP QID, (Reported) Discontinued Reason: Other ONDANSETRON ODT 4mg tablet (Ondansetron Odt), 1 TAB PO Q6H PRN PRN for na usea/vomiting Discontinued Reason: Other Past Medical History Past Medical History: Seizures, Angina, COPD, Bipolar Past Surgical History: brain surgery, hysterectomy Other Past Surgical History: Breast Patient History: (DM Type 2) Diabetes mellitus type 2 FATHER ([place]) Myocardial infarction 04 GRANDFATHER OR GRANDMOTHER (62, ) FH: depression GRANDFATHER OR GRANDMOTHER, Onset:Unknown FH: lung cancer MOTHER, Onset:40's - 50 FH: melanoma FATHER Alcohol Use: None Drug Use: none Lives In: Home Occupation: retired Review of Systems All Other Systems at this time: Reviewed and Negative Physical Exam Physical Exam I have reviewed the triage vitals. CONST: Well developed and well nourished. In no acute distress HENT: Head Atraumatic EYES: Pupils are equal, round and reactive to light. Normal conjunctiva NECK: Normal range of motion. Supple. CARDIO: Normal rate and regular rhythm. No murmurs, rubs, or gallops. S1, S2. PULM/CHEST: No respiratory distress. Lungs clear to auscultation. No wheeze ABD: Soft and nontender. Nondistended. Bowel sounds normal. No guarding. : Exam deferred MSK: No edema. No deformity. NEURO: Alert and oriented to person, place and time. Moving all extremities SKIN: Warm and dry. PSYCH: Normal mood and affect. Good eye contact. Progress Results/Orders Results/Orders Orders - PHILIP GORDILLO MD Chest,Single View (11/19/24 09:17) Monitor (11/19/24 09:17) Saline Lock (11/19/24 09:17) Acetylcysteine Iv (Acetadote) (Acetadote (11/19/24 10:40) Close Observation Level (11/19/24 11:34) Page Hospitalist (11/19/24 12:37) Fill Out Med Reconciliation (11/19/24 12:37) Completed Orders - PHILIP GORDILLO MD Chest,Single View (11/19/24 09:17) Cbc/Diff (11/19/24 09:17) PBNP (11/19/24 09:17) Electrocardiogram (11/19/24 09:17) CMP (11/19/24 09:17) Acetaminophen (11/19/24 09:17) Salicylate (11/19/24 09:17) Drug Screen, Urine (11/19/24 09:20) Normal Saline 1000ml (Sodium Chloride 10 (11/19/24 09:25) MG (11/19/24 09:26) Acetylcysteine Iv (Acetadote) (Acetadote (11/19/24 10:00) Ua With Microscopic (11/19/24 11:20) Acetaminophen (11/19/24 12:59) Vital Signs 11/19/24 11/19/24 11/19/24 11/19/24 03:10 09:21 10:09 10:33 Temp 98.2 Pulse 80 85 Resp 22 17 15 B/P (MAP) 146/76 146/89 (108) Pulse Ox 98 97 99 O2 Delivery Room Air O2 Flow Rate 0 11/19/24 11/19/24 10:43 11:43 Pulse 80 91 Resp 17 17 B/P (MAP) 145/73 (97) 139/80 (99) Pulse Ox 99 97 Laboratory Tests Test 11/19/24 09:26 11/19/24 11:20 11/19/24 13:00 11/19/24 13:10 White Blood Count 6.8 Red Blood Count 4.10 L Hemoglobin 12.5 Hematocrit 37.2 Mean Corpuscular Volume 90.8 Mean Corpuscular Hemoglobin 30.4 Mean Corpuscular Hemoglobin Concent 33.5 Red Cell Distribution Width 14.5 Platelet Count 285 Mean Platelet Volume 6.8 L Neutrophils (%) (Auto) 78.4 H Lymphocytes (%) (Auto) 13.2 L Monocytes (%) (Auto) 8.3 Eosinophils (%) (Auto) 0 Basophils (%) (Auto) 0.1 Neutrophils # (Auto) 5.4 Lymphocytes # (Auto) 0.9 L Monocytes # (Auto) 0.6 Eosinophils # (Auto) 0.0 Basophils # (Auto) 0.0 CBC Comment Prothrombin Time 10.4 10.9 INR International Normalized Ratio 1.0 1.1 Coagulation Comments Sodium Level 136 Potassium Level 3.8 Chloride Level 103 Carbon Dioxide Level 21.0 L Anion Gap 12 Blood Urea Nitrogen 12 Creatinine 1.07 H Estimated GFR/1.73 m2 51 BUN/Creatinine Ratio 11.2 Glucose Level 125 H Calcium Level 8.2 L Magnesium Level 1.8 Total Bilirubin 0.6 Aspartate Amino Transf (AST/SGOT) 68 H Alanine Aminotransferase (ALT/SGPT) 53 Alkaline Phosphatase 89 Pro-B-Type Natriuretic Peptide 153 H Total Protein 6.7 Albumin 3.9 Globulin 2.8 Albumin/Globulin Ratio 1.4 Chemistry Comments Salicylates Level 2.1 L Acetaminophen Level 147.1 *H 67.8 *H Urine Specimen Description Cln catch midstream Urine Color Yellow Urine Clarity Clear Urine pH 5.5 Urine Specific [place] 1.010 Urine Protein Negative Urine Glucose (UA) Negative Urine Ketones 15 H Urine Occult Blood Negative Urine Nitrite Negative Urine Bilirubin Negative Urine Urobilinogen 0.2 Urine Leukocyte Esterase Trace H Urine RBC 0-2 Urine WBC 5-10 H Urine Squamous Epithelial Cells Few Urine Transitional Epithelial Cells Few Urine Renal Cells Few Urine Bacteria Few Volume Urine Centrifuged 10 ml Urine Comment Urine Opiates Screen Negative Urine Methadone Screen Negative Urine Fentanyl Screen Negative Urine Barbiturates Screen Negative Urine Phencyclidine Screen Negative Urine Amphetamines Screen Negative Urine Benzodiazepines Screen Negative Urine Cocaine Screen Negative Urine Cannabinoids Screen Negative Drug Screen Comment EKG/XRAY/CT/US/VASC/MRI EKG : Additional Comment Normal sinus rhythm at a rate of 77 beats per minute. No ischemia. Normal axis. Interpreted by ED MD Chest X-Ray : Additional Comments CHEST RADIOGRAPH Indication: CP Technique: Single frontal view of the chest was obtained Comparison: CHEST,SINGLE VIEW on DOS: 02/02/21 FINDINGS: Lines and Tubes: None Lungs: No focal consolidation. Pleura: No effusion. No pneumothorax. Cardiomediastinal contours: Unremarkable Bones: No acute osseous abnormality. IMPRESSION: 1. No acute cardiopulmonary disease. Medical Decision Making Additional Comment 69-year-old female presenting with a suicidal attempt where she ingested 96 tablets of 500 mg Tylenol pills. The patient's acetaminophen level today is 147. The remainder of her lab work is grossly unremarkable. The patient was started on N-acetylcysteine as per protocol. She will require admission for further treatment and care. Report called to admitting hospitalist. Departure Disposition: 07 LEFT AWOL/ELOPED Admitted to Inpatient Unit: to hospitalist Impression: Primary Impression: Acetaminophen overdose Additional Impression: Suicidal behavior with attempted self-injury Condition: Guarded Referrals: NO PRIMARY CARE PROVIDER (PCP) Signature Scribe Signature: 1 Attestation: 1 PHILIP GORDILLO MD November 19, 2024 09:30
[2024-11-19 09:38] LABS: BASOPHILS % (AUTO) 0.1 % (0-1); EOSINOPHILS % (AUTO) 0 % (0-6); HEMATOCRIT 37.2 % (35.0-45.0); HEMOGLOBIN 12.5 g/dl (12.0-16.0); LYMPHOCYTES # (AUTO) 0.9 X10'3 (1.1-4.8); LYMPHOCYTES % (AUTO) 13.2 % (21-51); MEAN CORPUSCULAR HEMOGLOBIN 30.4 PG (27.0-31.0); MEAN CORPUSCULAR HGB CONC 33.5 g/dL (33.0-36.5); MEAN CORPUSCULAR VOLUME 90.8 FL (78-98); MEAN PLATELET VOLUME 6.8 FL (7.4-10.4); MONOCYTES # (AUTO) 0.6 X10'3 (0-0.9); MONOCYTES % (AUTO) 8.3 % (2-12); NEUTROPHILS # (AUTO) 5.4 X10'3 (1.8-7.7); NEUTROPHILS % (AUTO) 78.4 % (42-75); PLATELET COUNT 285 X10'3 (140-440); RED CELL DISTRIBUTION WIDTH 14.5 % (11.5-14.5); WHITE BLOOD COUNT 6.8 X10'3 (4.5-11.0)
[2024-11-19] MEDS ORDERED: ACETYLCYSTEINE IV SCH (09:40)
[2024-11-19] MEDS ORDERED: WATER IV SCH (09:40)
[2024-11-19] MEDS ORDERED: DEXTROSE 5% IV SCH (09:40)
[2024-11-19] MEDS: normal saline 1000ml 1,000 ML IV ONE (09:50)
[2024-11-19 09:52] LABS: ALANINE AMINOTRANSFERASE 53 U/L (12-78); ALBUMIN 3.9 G/DL (3.4-5.0); ALBUMIN/GLOBULIN RATIO 1.4 (1.1-1.5); ALKALINE PHOSPHATASE 89 IU/L (46-116); ANION GAP 12 (8-16); ASPARTATE AMINO TRANSFERASE 68 U/L (10-37); BILIRUBIN,TOTAL 0.6 MG/DL (0.1-1.0); BLOOD UREA NITROGEN 12 MG/DL (7-18); BUN/CREATININE RATIO 11.2 (10.0-20.0); CALCIUM 8.2 MG/DL (8.5-10.1); CHLORIDE 103 MMOL/L (99-107); CREATININE 1.07 MG/DL (0.40-0.90); GLUCOSE 125 MG/DL (70-104); POTASSIUM 3.8 MMOL/L (3.5-5.1); SODIUM 136 MMOL/L (135-145); TOTAL PROTEIN 6.7 G/DL (6.4-8.2); eCRCL 37 ML/MIN; eGFR 51 ML/MIN
--- NOTE | 2024-11-19 09:55 | RADIOLOGY REPORT ---
CHEST RADIOGRAPH Indication: CP Technique: Single frontal view of the chest was obtained Comparison: CHEST,SINGLE VIEW on DOS: 02/02/21 FINDINGS: Lines and Tubes: None Lungs: No focal consolidation. Pleura: No effusion. No pneumothorax. Cardiomediastinal contours: Unremarkable Bones: No acute osseous abnormality. IMPRESSION: 1. No acute cardiopulmonary disease.
[2024-11-19 09:58] LABS: MAGNESIUM 1.8 MG/DL (1.5-2.4); SALICYLATE 2.1 MG/DL (4.0-20.0)
[2024-11-19] MEDS: WATER IV ONE ×2 (10:14→11:53)
[2024-11-19] MEDS: ACETYLCYSTEINE IV ONE ×2 (10:14→11:53)
[2024-11-19] MEDS: DEXTROSE 5% IV ONE ×2 (10:14→11:53)
[2024-11-19 10:23] LABS: PRO BRAIN NATRIURETIC PEPTIDE 153 PG/ML (0-125)
[2024-11-19 11:00] LABS: ACETAMINOPHEN 147.1 UG/ML (10-30)
[2024-11-19 11:48] LABS: BILIRUBIN,URINE NEGATIVE (Neg); CLARITY,URINE CLEAR (Clear); COLOR,URINE YELLOW (Yellow); GLUCOSE, URINE NEGATIVE (Neg); KETONES,URINE 15 mg/dl (Neg); LEUKOCYTE ESTERASE ,URINE TRACE (Neg); NITRITES, URINE NEGATIVE (Neg); OCCULT BLOOD,URINE NEGATIVE (Neg); PH,URINE 5.5 (4.8-8.0); PROTEIN,URINE NEGATIVE (Neg); UROBILINOGEN,URINE 0.2 E.U/dL (0.2-1.0)
[2024-11-19 11:49] LABS: UA COLLECTION TYPE CLN CATCH MIDSTREAM
[2024-11-19] MEDS ORDERED: PRIM50TA5 PO (11:56)
[2024-11-19] MEDS ORDERED: DULO20CA50 PO (11:56)
[2024-11-19] MEDS ORDERED: DONE10TA44 PO (11:56)
[2024-11-19] MEDS ORDERED: ASCO100031 PO (11:56)
[2024-11-19 12:02] LABS: BACTERIA,URINE FEW /HPF (Neg); RBC,URINE 0-2 /HPF (0-2)
[2024-11-19 12:03] LABS: RENAL CELLS, URINE FEW /HPF; SQUAMOUS EPITHELIAL CELL,UR FEW /LPF (FEW); TRANSITIONAL EPI CELLS,URINE FEW /HPF
[2024-11-19 12:06] LABS: URINE AMPHETAMINE SCREEN NEGATIVE (Neg); URINE BARBITUATE SCREEN NEGATIVE (Neg); URINE BENZODIAZEPINES SCREEN NEGATIVE (Neg); URINE CANNABINOID SCREEN NEGATIVE (Neg); URINE COCAINE SCREEN NEGATIVE (Neg); URINE METHADONE SCREEN NEGATIVE (Neg); URINE OPIATE SCREEN NEGATIVE (Neg); URINE PHENCYCLIDINE SCREEN NEGATIVE (Neg)
[2024-11-19] MEDS ORDERED: CHOL-4 PO (12:06)
[2024-11-19] MEDS ORDERED: BIOT5000 PO (12:06)
[2024-11-19] MEDS ORDERED: VITA100T5 PO (12:06)
[2024-11-19] MEDS ORDERED: ZINC100T2 PO (12:06)
[2024-11-19] MEDS ORDERED: [UNRECOGNIZED DRUG - OTHER] PO (12:06)
[2024-11-19] MEDS ORDERED: OSC500T PO (12:56)
[2024-11-19] MEDS ORDERED: CETI10TA14 PO (12:56)
[2024-11-19] MEDS: normal saline 1000ml 1,000 ML IV SCH (13:15)
[2024-11-19] MEDS: PERFLUTREN PROTEIN-A MICROSPHR (Optison) 0.22 MG/ML 3ML VIAL IV ONE (13:15)
[2024-11-19] MEDS ORDERED: magnesium sulf-water 2g/50mL 50 ML IV PRN (13:15)
[2024-11-19] MEDS ORDERED: HYDROcodone/acetaminophen 5mg/325mg tablet PO PRN (13:15)
[2024-11-19] MEDS ORDERED: magnesium hydroxide 30ml (MOM) UD suspension PO PRN (13:15)
[2024-11-19] MEDS ORDERED: magnesium sulf-water 4G/100mL 100 ML IV PRN (13:15)
[2024-11-19] MEDS ORDERED: mag hydrox/Alum hydrox/simeth 30ml oral suspension PO PRN (13:15)
[2024-11-19] MEDS ORDERED: ondansetron/PF 4mg/2ml inj IV PRN (13:15)
[2024-11-19] MEDS ORDERED: magnesium Cl slow-release 64mg tablet PO PRN (13:15)
[2024-11-19] MEDS ORDERED: morphine 2 MG/ML inj. syringe IV PRN (13:15)
[2024-11-19] MEDS ORDERED: potassium Cl 40MEQ/1/2NS 520ml 520 ML IV PRN (13:15)
[2024-11-19 13:49] LABS: PROTHROMBIN TIME 10.4 SECONDS (9.0-12.0)
--- NOTE | 2024-11-19 13:52 | HISTORY AND PHYSICAL-Residence ---
History & Physical Providers to CC Resident Creating Document: LONDON WILLIS, RES CC: YASMANY BROWNLEE MD ~ History of Present Illness Primary Medical Doctor: EFREN KEMP Reason for Admit\Complaint: Tylenol overdose History of Present Illness A 69-year-old female with past medical history of schizophrenia, bipolar, epilepsy status post craniectomy with a residual epididymal seizures presented to the ED after she could not get up and was feeling weak. Patient endorses that she has taken 96 pills of Tylenol and attempted to commit suicide yesterday. Patient states that her daughter was not making time and following commited schedules to meet her. She and her daughter had an argument about something which disappointed her, therefore she took about 96 pills of Tylenol. She denies nausea, vomitings, abdominal pain. Reportedly she has chronic history of rectal bleeding. Patient also states she has tingling of her legs that radiated from the legs to the head for which she is due of a stress test for her. Allergies: Coded Allergies: No Known Allergies (Unverified , 01/30/24) Home Medications Home Medications Active Reported Cetirizine HCl 10 Mg Tablet 1 Tab PO DAILY 30 Days Oscal* (Calcium Carbonate) 500 Mg Tablet 3 Tab PO BID Vitamin D3 (Cholecalciferol (Vitamin D3)) 250 Mcg (30010 Unit) Capsule 1 Cap PO DAILY 30 Days [B Complex With B-12] 1 Tablet PO DAILY Biotin 5,000 Mcg Tab.rapdis 1 Tab PO DAILY 30 Days Zinc Gluconate 100 Mg Tablet 25 Mg PO DAILY 30 Days Vitamin E (Vitamin E Mixed) 100 Unit Tablet 1 Tab PO DAILY Vitamin C (Ascorbic Acid) 1,000 Mg Tablet 1 Tab PO DAILY 15 Days DIRECTED Mysoline (Primidone) 50 Mg Tablet 1 Tab PO HS Cymbalta* (Duloxetine HCl) 20 Mg Capsule.dr 80 Mg PO DAILY Aricept (Donepezil HCl) 10 Mg Tablet 1 Tab PO HS Dicyclomine HCl 20 Mg Tablet 1 Tab PO QID Vitamin D3 (Cholecalciferol (Vitamin D3)) 10 Mcg Capsule 1 Tab PO DAILY Lamotrigine 200 Mg Tablet 1 Tab PO BID 30 Days Topamax (Topiramate) 25 Mg Tablet 3 Tab PO DAILY 30 Days Take Topomax 25 mg One tablet in the morning and two tablets at bedtime. Quetiapine Fumarate 25 Mg Tablet 1 Tab PO HS Klonopin (Clonazepam) 0.5 Mg Tablet 0.5 Mg PO HS Aspirin EC (Aspirin) 81 Mg Tablet. 1 Tablet PO DAILY Past Medical History Past Medical History Schizophrenia Bipolar Epilepsy Past Surgical History Surgical History Comment Craniectomy for grand mal seizures Collapsed lung status post thoracotomy and ? lobectomy Family History Family History: (DM Type 2) Diabetes mellitus type 2 FATHER ([place]) Myocardial infarction 04 GRANDFATHER OR GRANDMOTHER (62, ) FH: depression GRANDFATHER OR GRANDMOTHER, Onset:Unknown FH: lung cancer MOTHER, Onset:40's - 50 FH: melanoma FATHER Past Social History Social History Comment Lives at home in ICU in a living Uses cane to move around Sees Dr. Munoz at [facility] for primary care Sees Dr. Munroe at [facility] for seizures and sees Dr. Brock for psychiatry at [facility]. Does not consume tobacco, alcohol, marijuana, illicit drugs Alcohol Use: None Drug Use: None Lives In: Home Occupation: retired ROS ROS All other systems reviewed in full and negative except for the pertinent positives mentioned in the HPI Exam Vitals: Vital Signs Date Time Temp Pulse Resp B/P (MAP) Pulse Ox O2 Delivery O2 Flow Rate FiO2 11/19/24 11:43 91 17 139/80 (99) 97 11/19/24 10:09 0 11/19/24 09:21 98.2 General: General: Alert, awake, oriented, not in acute distress HEENT: Temporal wasting, PERRLA, EOMI, no icterus, pallor, lymphadenopathy, carotid bruit Respiratory system: Dilated veins on the chest, Bilateral vesicular breath sounds heard, no adventitious breath sounds CVS: Tachycardic, S1-S2 heard, no murmurs/rubs/gallop GI: Soft, nontender, no organomegaly, no guarding/rigidity, bowel sounds present Neuro: No focal neurological deficits present Extremities: Bilateral pedal edema without pitting, No cyanosis clubbing Musculoskeletal: No deformities Skin: Warm and dry Psych: Suicidal ideation, anxious Diagnostic Data Last Recorded Lab Results: 11/19/2492511/19/24925 Diagnostic Data: Laboratory Tests Test 11/19/24 09:26 Coagulation Comments Advance Care Planning Advanced Care plannin - 30 Minutes (I spent 20 minutes discussing various resuscitative measures and the patient decided to be full code patient stated that her daughter (Altagracia) in her sister would be decision makers in the situation where she can not make her own decisions.) Additional Plan Assessment: A 69-year-old female with multiple psychiatric comorbidities presented to the ED with intentional Tylenol overdose. Patient is admitted for the evaluation management of acetaminophen toxicity Plan: Intentional Tylenol overdose R Factor: 0.9 [facility] criteria: 0 Mildly elevated AST Elevated Tylenol levels: 147.1, downtrending -> 67.8 Elevated salicylate levels Follow up with ammonia levels Monitor Daily ammonia levels Monitor Tylenol levels, INR, CMP and lactic acid q.6h N-acetylcysteine drip, IV fluids at 100 cc/hour Poison controlled consulted Follow up with CT abdomen Normal anion gap acidosis Bicarb drip Prerenal STEPHENIE probably secondary to renal tubular stasis Elevated creatinine Continue IV fluids at 100 cc/hour Continue to monitor CMP Mildly elevated proBNP Probably inflammatory Follow up with echo Suicidal ideation 1798 Mental health evaluation once medically stable Schizophrenia Insomnia Bipolar disorder Continue home meds quetiapine, duloxetine, clonazepam Epilepsy Continue home meds lamotrigine, Topamax Follow up with A1c, lipid panel, echo Patient was on aspirin at home, but did not reveal any heart conditions. Held aspirin for now in view of acetaminophen toxicity Code status: Full code Diet: Clear liquids DVT prophylaxis: SCD Disposition: Admit to PCU, follow up with Tylenol, CMP, INR levels q.6h London Willis MD Internal Medicine, PGY 1 Date of Service: November 19, 2024 Billing Provider: YASMANY BROWNLEE MD Common Visit Codes: [id number] INP/OBS CARE (HIGH) LONDON WILLIS, RES November 19, 2024 13:52 YASMANY BROWNLEE MD November 19, 2024 18:37
[2024-11-19 14:10] LABS: INR 1.1 INR; PROTHROMBIN TIME 10.9 SECONDS (9.0-12.0)
[2024-11-19 14:14] LABS: ALANINE AMINOTRANSFERASE 60 U/L (12-78); ALBUMIN 3.4 G/DL (3.4-5.0); ALBUMIN/GLOBULIN RATIO 1.1 (1.1-1.5); ALKALINE PHOSPHATASE 81 IU/L (46-116); ANION GAP 15 (8-16); ASPARTATE AMINO TRANSFERASE 60 U/L (10-37); BILIRUBIN,TOTAL 0.6 MG/DL (0.1-1.0); BLOOD UREA NITROGEN 11 MG/DL (7-18); BUN/CREATININE RATIO 10.6 (10.0-20.0); CHLORIDE 105 MMOL/L (99-107); CREATININE 1.04 MG/DL (0.40-0.90); GLUCOSE 164 MG/DL (70-104); SODIUM 140 MMOL/L (135-145); TOTAL CARBON DIOXIDE 20.3 MMOL/L (24-32); TOTAL PROTEIN 6.4 G/DL (6.4-8.2); eCRCL 38 ML/MIN; eGFR 52 ML/MIN
[2024-11-19 14:35] LABS: POTASSIUM 2.9 MMOL/L (3.5-5.1)
[2024-11-19 15:10] VITALS: BP 103/55; PULSE 80; RESP 20; TEMP 98; O2SAT 95
[2024-11-19 15:14] LABS: HEMOGLOBIN A1C 5.3 % (4.5-6.2)
--- NOTE | 2024-11-19 16:29 | RADIOLOGY REPORT ---
Procedure: [facility] Study Date and Requested Time: 11/19/2024 03:59 PM History: Liver pathology Comparison: None Dose: CTDI: 12.31 mGy DLP: 279.67 mGycm Technique: Multiplanar images obtained through the abdomen without contrast Findings: Bibasilar atelectasis. Partially visualized heart is unremarkable. Liver, spleen, pancreas and adrenal glands unremarkable. Cholelithiasis without evidence for acute ch olecystitis. Kidneys unremarkable. Stomach is unremarkable. Mild wall Thickening of proximal fluid-filled nondistended small bowel. Hype rdense Material within the partially visualized colon within the right hip abdomen represent ingested material. Otherwise, the bowel loops are unremarkable. No evidence of free air or free fluid. No significant lymphadenopathy. Small fat containing umbilical hernia. No destructive osseous lesions are noted. Impression: Mild wall thickening of proximal small bowel segment within the left hemiabdomen which may be due to enteritis. Cholelithiasis without evidence for acute cholecystitis.
[2024-11-19] MEDS: sodium bicarbonate (8.4%) inj. 100 MEQ in dextrose 5%-water 1,000 ML IV SCH (16:39)
[2024-11-19] MEDS: dicyclomine 10 MG capsule PO SCH (16:44)
[2024-11-19] MEDS: potassium Cl 20 mEq SR tablet PO PRN (16:47)
[2024-11-19 18:00] VITALS: BP 141/79; PULSE 114; RESP 19; TEMP 98.5; O2SAT 98
[2024-11-19 18:57] LABS: INR 1.2 INR; PROTHROMBIN TIME 11.7 SECONDS (9.0-12.0)
[2024-11-19 19:04] LABS: ACETAMINOPHEN 19.7 UG/ML (10-30); ALANINE AMINOTRANSFERASE 57 U/L (12-78); ALBUMIN 3.3 G/DL (3.4-5.0); ALBUMIN/GLOBULIN RATIO 1.2 (1.1-1.5); ALKALINE PHOSPHATASE 73 IU/L (46-116); ANION GAP 16 (8-16); ASPARTATE AMINO TRANSFERASE 67 U/L (10-37); BILIRUBIN,TOTAL 0.9 MG/DL (0.1-1.0); BLOOD UREA NITROGEN 12 MG/DL (7-18); BUN/CREATININE RATIO 11.4 (10.0-20.0); CHLORIDE 103 MMOL/L (99-107); CREATININE 1.05 MG/DL (0.40-0.90); GLUCOSE 178 MG/DL (70-104); SODIUM 138 MMOL/L (135-145); TOTAL CARBON DIOXIDE 18.6 MMOL/L (24-32); TOTAL PROTEIN 6.1 G/DL (6.4-8.2); eCRCL 38 ML/MIN; eGFR 52 ML/MIN
[2024-11-19 19:09] LABS: POTASSIUM 2.7 MMOL/L (3.5-5.1)
[2024-11-19 20:00] VITALS: RESP 18; O2SAT 98
[2024-11-19] MEDS: K and/or MAG REPLACEMENT MC SCH (20:00)
[2024-11-19] MEDS: primidone 50mg tablet PO SCH (21:00)
[2024-11-19] MEDS: lamoTRIgine 100mg tablet PO SCH (21:03)
[2024-11-19] MEDS: docusate sod 100mg capsule PO SCH (21:03)
[2024-11-19] MEDS: donepezil 5mg tablet PO SCH (21:24)
[2024-11-19] MEDS: clonazePAM 0.5mg tablet PO SCH (23:18)
[2024-11-20] VITALS (8 sets, daily range): BP systolic 136–147; BP diastolic 45–77; PULSE 93–106; RESP 16–20; TEMP 97–98.8; O2SAT 96–100
[2024-11-20] MEDS: QUEtiapine 25mg tablet PO SCH (00:24)
[2024-11-20 04:35] LABS: ACETAMINOPHEN 2.7 UG/ML (10-30); ALANINE AMINOTRANSFERASE 67 U/L (12-78); ALBUMIN 3.2 G/DL (3.4-5.0); ALBUMIN/GLOBULIN RATIO 1.2 (1.1-1.5); ALKALINE PHOSPHATASE 69 IU/L (46-116); ANION GAP 12 (8-16); ASPARTATE AMINO TRANSFERASE 91 U/L (10-37); BILIRUBIN,TOTAL 1.1 MG/DL (0.1-1.0); BLOOD UREA NITROGEN 7 MG/DL (7-18); CALCIUM 7.7 MG/DL (8.5-10.1); CHLORIDE 105 MMOL/L (99-107); CHOLESTEROL 176 MG/DL (0-200); CREATININE 0.88 MG/DL (0.40-0.90); GLUCOSE 134 MG/DL (70-104); HDL CHOLESTEROL 89 MG/DL (35-60); LDL CHOLESTEROL 77 MG/DL (50-100); MAGNESIUM 1.9 MG/DL (1.5-2.4); SODIUM 140 MMOL/L (135-145); TOTAL CARBON DIOXIDE 23.2 MMOL/L (24-32); TOTAL PROTEIN 5.9 G/DL (6.4-8.2); TRIGLYCERIDES 65 MG/DL (20-135); eCRCL 45 ML/MIN; eGFR 64 ML/MIN
[2024-11-20 04:36] LABS: BASOPHILS % (AUTO) 0.4 % (0-1); EOSINOPHILS % (AUTO) 0 % (0-6); HEMATOCRIT 32.2 % (35.0-45.0); HEMOGLOBIN 11.1 g/dl (12.0-16.0); LYMPHOCYTES # (AUTO) 1.7 X10'3 (1.1-4.8); MEAN CORPUSCULAR HEMOGLOBIN 30.8 PG (27.0-31.0); MEAN CORPUSCULAR HGB CONC 34.5 g/dL (33.0-36.5); MEAN CORPUSCULAR VOLUME 89.1 FL (78-98); MEAN PLATELET VOLUME 6.9 FL (7.4-10.4); MONOCYTES # (AUTO) 0.4 X10'3 (0-0.9); MONOCYTES % (AUTO) 5.6 % (2-12); NEUTROPHILS # (AUTO) 5.3 X10'3 (1.8-7.7); PLATELET COUNT 229 X10'3 (140-440); RED BLOOD COUNT 3.61 X10'6 (4.20-5.60); RED CELL DISTRIBUTION WIDTH 14.1 % (11.5-14.5); WHITE BLOOD COUNT 7.5 X10'3 (4.5-11.0)
[2024-11-20 04:37] LABS: POTASSIUM 2.7 MMOL/L (3.5-5.1)
[2024-11-20 04:43] LABS: INR 1.3 INR; PROTHROMBIN TIME 13.2 SECONDS (9.0-12.0)
[2024-11-20 08:56] LABS: INR 1.3 INR; PROTHROMBIN TIME 12.9 SECONDS (9.0-12.0)
[2024-11-20 09:09] LABS: ACETAMINOPHEN < 2.0 UG/ML (10-30); ALANINE AMINOTRANSFERASE 75 U/L (12-78); ALBUMIN 3.1 G/DL (3.4-5.0); ALBUMIN/GLOBULIN RATIO 1.1 (1.1-1.5); ALKALINE PHOSPHATASE 66 IU/L (46-116); ANION GAP 13 (8-16); ASPARTATE AMINO TRANSFERASE 96 U/L (10-37); BILIRUBIN,TOTAL 1.2 MG/DL (0.1-1.0); BLOOD UREA NITROGEN 5 MG/DL (7-18); CALCIUM 7.9 MG/DL (8.5-10.1); CHLORIDE 109 MMOL/L (99-107); CREATININE 0.84 MG/DL (0.40-0.90); GLUCOSE 113 MG/DL (70-104); SODIUM 145 MMOL/L (135-145); TOTAL PROTEIN 5.8 G/DL (6.4-8.2); eCRCL 47 ML/MIN; eGFR 67 ML/MIN
[2024-11-20 09:18] LABS: POTASSIUM 2.9 MMOL/L (3.5-5.1)
[2024-11-20] MEDS: duloxetine 20mg capsule.DR PO SCH (09:40)
[2024-11-20] MEDS: ascorbic acid 500mg tablet PO SCH (09:40)
[2024-11-20] MEDS: topiramate 25mg tablet PO SCH (09:41)
[2024-11-20] MEDS ORDERED: acetylcysteine IV (Acetadote) 0 MG in dextrose 5%-water 1,000 ML IV SCH (13:45)
[2024-11-20] MEDS: ACETYLCYSTEINE IV ONE (15:09)
[2024-11-20] MEDS: WATER IV ONE (15:09)
[2024-11-20] MEDS: DEXTROSE 5% IV ONE (15:09)
--- NOTE | 2024-11-20 16:52 | PROGRESS NOTE- Residence ---
Progress Note - Resident Providers to CC Resident Creating Document: LONDON LONG RES CC: LEAH HOLT MD ~ Antibiotic Timeout Antibiotic Ordered?: No Subjective Patient was examined at bedside. Patient does not have any subjective complaints, no acute overnight events. Patient does not complain of abdominal pain, bleeding from any site or nausea and vomitings. Patient requires mental health evaluation at some point. Patient was on mental health unit being treated for her prior psychiatric conditions previously in our hospital. Objective Vital Signs Date Time Temp Pulse Resp B/P (MAP) Pulse Ox O2 Delivery O2 Flow Rate FiO2 11/20/24 08:00 16 100 Room Air 11/20/24 06:00 87 11/20/24 06:00 98.8 136/45 (75) 11/19/24 10:09 0 Result Diagram: 11/20/24 0415 11/20/24 0806 General: Alert, awake, oriented, not in acute distress HEENT: Temporal wasting, PERRLA, EOMI, no icterus, pallor, lymphadenopathy, carotid bruit Respiratory system: Dilated veins on the chest, Bilateral vesicular breath sounds heard, no adventitious breath sounds CVS: Tachycardic, S1-S2 heard, grade 3/6 holosystolic murmur in the mitral area tricuspid daily radiating to the aortic and pulmonary area GI: Soft, nontender, no organomegaly, no guarding/rigidity, bowel sounds present Neuro: No focal neurological deficits present Extremities: Bilateral pedal edema without pitting, No cyanosis clubbing Musculoskeletal: No deformities Skin: Warm and dry Coagulation Studies Laboratory Tests Test 11/20/24 08:11 Prothrombin Time 12.9 SECONDS (9.0-12.0) H INR International Normalized Ratio 1.3 INR Coagulation Comments Assessment Assessment A 69-year-old female with multiple psychiatric comorbidities presented to the ED with intentional Tylenol overdose. Patient is admitted for the evaluation management of acetaminophen toxicity Plan Plan Intentional Tylenol overdose R Factor: 0.9 [facility] criteria: 0 Mildly elevated AST, up trending Elevated Tylenol levels: Normal, ammonia levels and lactic acid levels normal Elevated salicylate levels Monitor Daily ammonia levels, INR, CMP and lactic acid q.6h Continue N-acetylcysteine drip, IV fluids at 100 cc/hour Poison controlled consulted CT abdomen: Cholelithiasis without cholecystitis, enteritis Normal anion gap acidosis Bicarb drip Asymptomatic bacteriuria Urinalysis reveals positive for leukocyte esterase Pending urine culture Prerenal STEPHENIE probably secondary to renal tubular stasis, resolved Mildly elevated proBNP, inflammatory Echo: Normal EF Heart failure ruled out Suicidal ideation 1798 Mental health evaluation once medically stable Schizophrenia Insomnia Bipolar disorder Continue home meds quetiapine, duloxetine, clonazepam Epilepsy Continue home meds lamotrigine, Topamax A1c: 5.3 Lipid panel: LDL: 77 Patient was on aspirin at home, but did not reveal any heart conditions. Held aspirin for now in view of acetaminophen toxicity Code status: Full code Diet: Clear liquids DVT prophylaxis: SCD Disposition: Continue care in PCU, follow up with PT INR and CMP at 6:00 p.m. London Long MD Internal Medicine, PGY 1 Date of Service: November 20, 2024 Billing Provider: LEAH HOLT MD Common Visit Codes: [id number] INP/OBS CARE(HIGH) LONDON LONG, RES November 20, 2024 16:51 LEAH HOLT MD Nov 27, 2024 16:24
[2024-11-20 17:39] LABS: OCCULT BLOOD STOOL NEGATIVE (Neg)
--- NOTE | 2024-11-20 18:03 | CARDIOLOGY REPORT ---
APPROVED REPORT EXAM: Comprehensive 2D, Doppler, and color-flow Echocardiogram. Patient Location: 30[address] Blood Pressure: 136/45 mmHg Heart Rate: 111 bpm Rhythm: SINUS TACHYCARDIA Indications CONGESTIVE HEART FAILURE ELEVATED PROBNP (153) ACETAMINOPHEN OVERDOSE Application Integration Engineer: 08/15/13 [facility] (EF 70%, mild LVH) 2D Dimensions RVDd 3.1 cm LA Diam3.6 cm IVSd 1.0 (0.7-1.1cm) LVDd 3.3 cm PWd 1.1 (0.7-1.1cm) IVSs 1.5 (0.8-1.2cm) LVDs 2.4 (2.5-4.0cm) PWs 1.5 (0.8-1.2cm) LVOT Diameter 1.94 (1.8-2.4cm) LVEF(%) 53.0 (>50%) FS (%) 26.4 % SV 23.0 ml CO 2.6 L/min M-Mode Dimensions Left Atrium(MM) 2.85 (2.5-4.0cm) Aortic Root 3.17 (2.2-3.7cm) Aortic Cusp Exc 1.99 (1.5-2.0cm) Biplane 2D LA Volumes LA ESV Index 24.27 mL/m2 Aortic Valve AoV Peak Arturo. 197.7 cm/s AoV VTI 30.2 cm AO Peak GR. 15.6 mmHg AO Mean GR. 9 mmHg LVOT VTI 28.98 cm LVOT Peak Arturo. 184.8 cm/s AMBROSIO(VTI)/BSA 2.85 cm2/m2 AMBROSIO (VTI) 2.85 cm2 Mitral Valve MV Peak Gr. 6 mmHg MV PHT 50 ms MVA (PHT) 4.40 cm2 MV [id number] cm/s Tricuspid Valve TR P. Velocity 305 cm/s RAP ESTIMATE 10 mmHg TR Peak Gr. 37 mmHg RVSP 47 mmHg LEFT VENTRICLE Normal LV size and wall thickness. Overall systolic function is normal. LVEF is 55%. RIGHT VENTRICLE RV is normal size and function. RVSP is estimated at 47 mmHg. ATRIA LA size appears normal. AORTIC VALVE Trileaflet AV appears mildly sclerotic without stenosis or insufficiency. MITRAL VALVE Mild MV annular calcification without stenosis. Trace regurgitation. TRICUSPID VALVE TV appears structurally normal with trace regurgitation. PULMONIC VALVE Normal PV without stenosis, physiologic insufficiency. GREAT VESSELS Aortic root is normal in size. Ascending aorta is normal in size. PERICARDIUM Normal pericardium. No effusion. Conclusion Normal LV size and wall thickness. Overall systolic function is normal. LVEF is 55%. RV is normal size and function. RVSP is estimated at 47 mmHg. LA size appears normal. Trileaflet AV appears mildly sclerotic without stenosis or insufficiency. Mild MV annular calcification without stenosis. Trace regurgitation. TV appears structurally normal with trace regurgitation. Normal pericardium. No effusion.
[2024-11-20 19:33] LABS: INR 1.3 INR; PROTHROMBIN TIME 13.3 SECONDS (9.0-12.0)
[2024-11-20 19:39] LABS: ALANINE AMINOTRANSFERASE 92 U/L (12-78); ALBUMIN/GLOBULIN RATIO 1.2 (1.1-1.5); ALKALINE PHOSPHATASE 60 IU/L (46-116); ANION GAP 12 (8-16); ASPARTATE AMINO TRANSFERASE 118 U/L (10-37); BILIRUBIN,TOTAL 0.8 MG/DL (0.1-1.0); BLOOD UREA NITROGEN 2 MG/DL (7-18); BUN/CREATININE RATIO 2.9 (10.0-20.0); CALCIUM 7.7 MG/DL (8.5-10.1); CHLORIDE 109 MMOL/L (99-107); GLUCOSE 188 MG/DL (70-104); POTASSIUM 3.4 MMOL/L (3.5-5.1); SODIUM 144 MMOL/L (135-145); TOTAL CARBON DIOXIDE 22.6 MMOL/L (24-32); TOTAL PROTEIN 5.6 G/DL (6.4-8.2); eCRCL 56 ML/MIN; eGFR 83 ML/MIN
[2024-11-20] MEDS: Melatonin 3mg tablet PO ONE (23:55)
[2024-11-21] VITALS (7 sets, daily range): BP systolic 116–148; BP diastolic 56–81; PULSE 89–102; RESP 16–20; TEMP 97.1–98.6; O2SAT 68–100
[2024-11-21 05:12] LABS: HBSAG SCREEN Negative (Negative); HEP A AB, IGM Negative (Negative); HEPATITIS C VIRUS ANTIBODY Non Reactive (Non Reactive)
[2024-11-21 06:33] LABS: BASOPHILS # (AUTO) 0.1 X10'3 (0-0.2); BASOPHILS % (AUTO) 0.7 % (0-1); EOSINOPHILS # (AUTO) 0.1 X10'3 (0-0.9); EOSINOPHILS % (AUTO) 1.8 % (0-6); HEMATOCRIT 33.6 % (35.0-45.0); HEMOGLOBIN 11.4 g/dl (12.0-16.0); LYMPHOCYTES # (AUTO) 1.7 X10'3 (1.1-4.8); LYMPHOCYTES % (AUTO) 24.3 % (21-51); MEAN CORPUSCULAR HEMOGLOBIN 30.4 PG (27.0-31.0); MEAN CORPUSCULAR HGB CONC 33.9 g/dL (33.0-36.5); MEAN CORPUSCULAR VOLUME 89.7 FL (78-98); MEAN PLATELET VOLUME 6.9 FL (7.4-10.4); MONOCYTES # (AUTO) 0.6 X10'3 (0-0.9); MONOCYTES % (AUTO) 8.7 % (2-12); NEUTROPHILS # (AUTO) 4.6 X10'3 (1.8-7.7); NEUTROPHILS % (AUTO) 64.5 % (42-75); PLATELET COUNT 216 X10'3 (140-440); RED BLOOD COUNT 3.74 X10'6 (4.20-5.60); RED CELL DISTRIBUTION WIDTH 14.8 % (11.5-14.5); WHITE BLOOD COUNT 7.2 X10'3 (4.5-11.0)
[2024-11-21 06:40] LABS: INR 1.2 INR; PROTHROMBIN TIME 11.9 SECONDS (9.0-12.0)
[2024-11-21 06:48] LABS: MAGNESIUM 1.9 MG/DL (1.5-2.4); POTASSIUM 3.3 MMOL/L (3.5-5.1)
[2024-11-21 06:51] LABS: ACETAMINOPHEN < 2.0 UG/ML (10-30)
[2024-11-21] MEDS: potassium Cl 20 mEq SR tablet PO PRN (09:43)
[2024-11-21 10:42] LABS: ALANINE AMINOTRANSFERASE 122 U/L (12-78); ALBUMIN 2.9 G/DL (3.4-5.0); ALBUMIN/GLOBULIN RATIO 1.1 (1.1-1.5); ALKALINE PHOSPHATASE 57 IU/L (46-116); ANION GAP 10 (8-16); ASPARTATE AMINO TRANSFERASE 135 U/L (10-37); BILIRUBIN,TOTAL 0.7 MG/DL (0.1-1.0); BLOOD UREA NITROGEN 2 MG/DL (7-18); BUN/CREATININE RATIO 3.4 (10.0-20.0); CALCIUM 7.9 MG/DL (8.5-10.1); CHLORIDE 113 MMOL/L (99-107); CREATININE 0.59 MG/DL (0.40-0.90); GLUCOSE 110 MG/DL (70-104); POTASSIUM 3.3 MMOL/L (3.5-5.1); SODIUM 148 MMOL/L (135-145); TOTAL CARBON DIOXIDE 24.8 MMOL/L (24-32); TOTAL PROTEIN 5.6 G/DL (6.4-8.2); eCRCL 67 ML/MIN; eGFR > 90 ML/MIN
[2024-11-21] MEDS ORDERED: WATER IV ONE ×2 (15:30→16:08)
[2024-11-21] MEDS ORDERED: DEXTROSE 5% IV ONE ×2 (15:30→16:08)
[2024-11-21] MEDS ORDERED: ACETYLCYSTEINE IV ONE ×2 (15:30→16:08)
--- NOTE | 2024-11-21 16:39 | PROGRESS NOTE- Residence ---
Progress Note - Resident Providers to CC Resident Creating Document: LONDON LONG RES CC: LEAH HOLT MD ~ Antibiotic Timeout Antibiotic Ordered?: No Subjective Patient was examined at bedside. Patient does not have any subjective complaints, no acute overnight events. Patient does not complain of abdominal pain, bleeding from any site or nausea and vomitings. Objective Vital Signs Date Time Temp Pulse Resp B/P (MAP) Pulse Ox O2 Delivery O2 Flow Rate FiO2 11/21/24 08:00 16 99 Room Air 11/21/24 07:38 98.6 89 148/81 (103) 11/19/24 10:09 0 Result Diagram: 11/21/2461411/21/24614 General: Alert, awake, oriented, not in acute distress HEENT: Temporal wasting, PERRLA, EOMI, no icterus, pallor, lymphadenopathy, carotid bruit Respiratory system: Dilated veins on the chest, Bilateral vesicular breath sounds heard, no adventitious breath sounds CVS: Tachycardic, S1-S2 heard, grade 3/6 holosystolic murmur in the mitral area tricuspid daily radiating to the aortic and pulmonary area GI: Soft, nontender, no organomegaly, no guarding/rigidity, bowel sounds present Neuro: No focal neurological deficits present Extremities: Bilateral pedal edema without pitting, No cyanosis clubbing Musculoskeletal: No deformities Skin: Warm and dry Coagulation Studies Laboratory Tests Test 11/21/24 06:15 Prothrombin Time 11.9 SECONDS (9.0-12.0) INR International Normalized Ratio 1.2 INR Coagulation Comments Assessment Assessment A 69-year-old female with multiple psychiatric comorbidities presented to the ED with intentional Tylenol overdose. Patient is admitted for the evaluation management of acetaminophen toxicity Plan Plan Intentional Tylenol overdose R Factor: 0.9 [facility] criteria: 0 Mildly elevated AST, up trending Tylenol levels Normal, ammonia levels and lactic acid levels normal Elevated salicylate levels Monitor Daily ammonia levels, INR, CMP and lactic acid q.6h Continue N-acetylcysteine drip, IV fluids at 100 cc/hour Poison controlled consulted CT abdomen: Cholelithiasis without cholecystitis, enteritis Normal anion gap acidosis, resolved DC Bicarb drip Asymptomatic bacteriuria Urinalysis reveals positive for leukocyte esterase Pending urine culture Prerenal STEPHENIE probably secondary to renal tubular stasis, resolved Mildly elevated proBNP, inflammatory Echo: Normal EF Heart failure ruled out Suicidal ideation 1798 Mental health evaluation once medically stable Schizophrenia Insomnia Bipolar disorder Continue home meds quetiapine, duloxetine, clonazepam Epilepsy Continue home meds lamotrigine, Topamax A1c: 5.3 Lipid panel: LDL: 77 Patient was on aspirin at home, but did not reveal any heart conditions. Held aspirin for now in view of acetaminophen toxicity Code status: Full code Diet: Clear liquids DVT prophylaxis: SCD Disposition: Continue care in PCU, continue to monitor PT INR and CMP London Long MD Internal Medicine, PGY 1 Date of Service: November 21, 2024 Billing Provider: LEAH HOLT MD Common Visit Codes: [id number] INP/OBS CARE(HIGH) LONDON LONG, RES November 21, 2024 16:39 LEAH HOLT MD Nov 27, 2024 16:25
[2024-11-21] MEDS: WATER IV ONE (17:20)
[2024-11-21] MEDS: ACETYLCYSTEINE IV ONE (17:20)
[2024-11-21] MEDS: DEXTROSE 5% IV ONE (17:20)
[2024-11-21 17:59] LABS: INR 1.1 INR; PROTHROMBIN TIME 11.6 SECONDS (9.0-12.0)
[2024-11-22] VITALS (7 sets, daily range): BP systolic 100–129; BP diastolic 51–78; PULSE 78–98; RESP 15–20; TEMP 97.4–98.7; O2SAT 97–99
[2024-11-22 08:51] LABS: BASOPHILS % (AUTO) 0.5 % (0-1); EOSINOPHILS # (AUTO) 0.3 X10'3 (0-0.9); EOSINOPHILS % (AUTO) 5.2 % (0-6); HEMATOCRIT 32.7 % (35.0-45.0); HEMOGLOBIN 11.3 g/dl (12.0-16.0); LYMPHOCYTES # (AUTO) 1.2 X10'3 (1.1-4.8); LYMPHOCYTES % (AUTO) 23.3 % (21-51); MEAN CORPUSCULAR HGB CONC 34.4 g/dL (33.0-36.5); MONOCYTES # (AUTO) 0.4 X10'3 (0-0.9); MONOCYTES % (AUTO) 7.1 % (2-12); NEUTROPHILS # (AUTO) 3.3 X10'3 (1.8-7.7); NEUTROPHILS % (AUTO) 63.9 % (42-75); PLATELET COUNT 202 X10'3 (140-440); RED BLOOD COUNT 3.64 X10'6 (4.20-5.60); RED CELL DISTRIBUTION WIDTH 14.5 % (11.5-14.5); WHITE BLOOD COUNT 5.2 X10'3 (4.5-11.0)
[2024-11-22 09:00] LABS: INR 1.1 INR; PROTHROMBIN TIME 11.2 SECONDS (9.0-12.0)
[2024-11-22 09:11] LABS: ACETAMINOPHEN < 2.0 UG/ML (10-30); MAGNESIUM 1.8 MG/DL (1.5-2.4); POTASSIUM 3.6 MMOL/L (3.5-5.1)
[2024-11-22 12:40] LABS: ALANINE AMINOTRANSFERASE 149 U/L (12-78); ALBUMIN 2.8 G/DL (3.4-5.0); ALKALINE PHOSPHATASE 64 IU/L (46-116); ANION GAP 10 (8-16); ASPARTATE AMINO TRANSFERASE 104 U/L (10-37); BILIRUBIN,TOTAL 0.8 MG/DL (0.1-1.0); BLOOD UREA NITROGEN 3 MG/DL (7-18); BUN/CREATININE RATIO 4.8 (10.0-20.0); CALCIUM 7.8 MG/DL (8.5-10.1); CHLORIDE 114 MMOL/L (99-107); CREATININE 0.63 MG/DL (0.40-0.90); GLUCOSE 102 MG/DL (70-104); SODIUM 145 MMOL/L (135-145); TOTAL CARBON DIOXIDE 21.5 MMOL/L (24-32); TOTAL PROTEIN 5.7 G/DL (6.4-8.2); eCRCL 63 ML/MIN; eGFR > 90 ML/MIN
[2024-11-22 15:23] LABS: INR 1.1 INR; PROTHROMBIN TIME 11.2 SECONDS (9.0-12.0)
--- NOTE | 2024-11-22 16:49 | PROGRESS NOTE- Residence ---
Progress Note - Resident Providers to CC Resident Creating Document: LONDON LONG RES CC: LEAH HOLT MD ~ Antibiotic Timeout Antibiotic Ordered?: No Subjective Patient was examined at bedside. Patient does not have any subjective complaints, no acute overnight events. Patient does not complain of abdominal pain, bleeding from any site or nausea and vomitings. Poison control recommended continuing in his dull drip until the liver enzymes dropped down by x2 Objective Vital Signs Date Time Temp Pulse Resp B/P (MAP) Pulse Ox O2 Delivery O2 Flow Rate FiO2 11/22/24 11:00 97.8 97 19 118/64 (82) 99 Room Air 11/19/24 10:09 0 Result Diagram: 11/22/2431 11/22/24 0831 General: Alert, awake, oriented, not in acute distress HEENT: Temporal wasting, PERRLA, EOMI, no icterus, pallor, lymphadenopathy, carotid bruit Respiratory system: Dilated veins on the chest, Bilateral vesicular breath sounds heard, no adventitious breath sounds CVS: S1-S2 heard, grade 3/6 holosystolic murmur in the mitral area tricuspid daily radiating to the aortic and pulmonary area GI: Soft, nontender, no organomegaly, no guarding/rigidity, bowel sounds present Neuro: No focal neurological deficits present Extremities: Bilateral pedal edema without pitting, No cyanosis clubbing Musculoskeletal: No deformities Skin: Warm and dry Coagulation Studies Laboratory Tests Test 11/22/24 15:00 Prothrombin Time 11.2 SECONDS (9.0-12.0) INR International Normalized Ratio 1.1 INR Coagulation Comments Assessment Assessment A 69-year-old female with multiple psychiatric comorbidities presented to the ED with intentional Tylenol overdose. Patient is admitted for the evaluation management of acetaminophen toxicity Plan Plan Intentional Tylenol overdose R Factor: 0.9 [facility] criteria: 0 AST downtrending, ALT up trending Tylenol levels Normal, ammonia levels and lactic acid levels normal Elevated salicylate levels Monitor Daily ammonia levels, INR, CMP and lactic acid q.6h Continue N-acetylcysteine drip, IV fluids at 100 cc/hour Poison controlled consulted CT abdomen: Cholelithiasis without cholecystitis, enteritis Normal anion gap acidosis, resolved DC Bicarb drip Asymptomatic bacteriuria Urinalysis reveals positive for leukocyte esterase Pending urine culture Prerenal STEPHENIE probably secondary to renal tubular stasis, resolved Mildly elevated proBNP, inflammatory Echo: Normal EF Heart failure ruled out Suicidal ideation 1798 Mental health evaluation once medically stable Schizophrenia Insomnia Bipolar disorder Continue home meds quetiapine, duloxetine, clonazepam Epilepsy Continue home meds lamotrigine, Topamax A1c: 5.3 Lipid panel: LDL: 77 Patient was on aspirin at home, but did not reveal any heart conditions. Held aspirin for now in view of acetaminophen toxicity Code status: Full code Diet: Full liquid DVT prophylaxis: SCD Disposition: Continue care in PCU, continue to monitor PT INR and CMP London Long MD Internal Medicine, PGY 1 Date of Service: November 22, 2024 Billing Provider: LEAH HOLT MD Common Visit Codes: [id number] INP/OBS CARE(HIGH) LONDON LONG, RES November 22, 2024 16:49 LEAH HOLT MD Nov 27, 2024 16:25
[2024-11-22] MEDS: DEXTROSE 5% IV ONE (20:46)
[2024-11-22] MEDS: ACETYLCYSTEINE IV ONE (20:46)
[2024-11-22] MEDS: WATER IV ONE (20:46)
[2024-11-23] VITALS (7 sets, daily range): BP systolic 106–143; BP diastolic 44–60; PULSE 78–98; RESP 13–19; TEMP 97.4–98.1; O2SAT 96–100
[2024-11-23 06:12] LABS: INR 1.1 INR; PROTHROMBIN TIME 11.1 SECONDS (9.0-12.0)
[2024-11-23 06:20] LABS: BASOPHILS % (AUTO) 0.5 % (0-1); EOSINOPHILS # (AUTO) 0.2 X10'3 (0-0.9); EOSINOPHILS % (AUTO) 5.9 % (0-6); HEMATOCRIT 32.3 % (35.0-45.0); HEMOGLOBIN 10.9 g/dl (12.0-16.0); LYMPHOCYTES # (AUTO) 1.3 X10'3 (1.1-4.8); LYMPHOCYTES % (AUTO) 32.8 % (21-51); MEAN CORPUSCULAR HEMOGLOBIN 30.8 PG (27.0-31.0); MEAN CORPUSCULAR HGB CONC 33.9 g/dL (33.0-36.5); MEAN CORPUSCULAR VOLUME 90.7 FL (78-98); MEAN PLATELET VOLUME 7.5 FL (7.4-10.4); MONOCYTES # (AUTO) 0.5 X10'3 (0-0.9); MONOCYTES % (AUTO) 11.7 % (2-12); NEUTROPHILS % (AUTO) 49.1 % (42-75); PLATELET COUNT 182 X10'3 (140-440); RED BLOOD COUNT 3.56 X10'6 (4.20-5.60); RED CELL DISTRIBUTION WIDTH 14.5 % (11.5-14.5); WHITE BLOOD COUNT 4.1 X10'3 (4.5-11.0)
[2024-11-23 06:33] LABS: ALANINE AMINOTRANSFERASE 128 U/L (12-78); ALBUMIN 2.7 G/DL (3.4-5.0); ALBUMIN/GLOBULIN RATIO 0.9 (1.1-1.5); ALKALINE PHOSPHATASE 69 IU/L (46-116); ANION GAP 9 (8-16); ASPARTATE AMINO TRANSFERASE 62 U/L (10-37); BILIRUBIN,TOTAL 0.6 MG/DL (0.1-1.0); BLOOD UREA NITROGEN 3 MG/DL (7-18); BUN/CREATININE RATIO 5.2 (10.0-20.0); CALCIUM 7.7 MG/DL (8.5-10.1); CHLORIDE 116 MMOL/L (99-107); CREATININE 0.58 MG/DL (0.40-0.90); GLUCOSE 95 MG/DL (70-104); MAGNESIUM 2.1 MG/DL (1.5-2.4); SODIUM 147 MMOL/L (135-145); TOTAL CARBON DIOXIDE 21.6 MMOL/L (24-32); TOTAL PROTEIN 5.6 G/DL (6.4-8.2); eCRCL 68 ML/MIN; eGFR > 90 ML/MIN
[2024-11-23 06:35] LABS: POTASSIUM 3.7 MMOL/L (3.5-5.1)
[2024-11-23 06:36] LABS: ACETAMINOPHEN < 2.0 UG/ML (10-30)
--- NOTE | 2024-11-23 14:23 | PROGRESS NOTE- Residence ---
Progress Note - Resident Providers to CC Resident Creating Document: AYUSH GRANADOS RES ~ Antibiotic Timeout Antibiotic Ordered?: No Subjective Patient was examined at bedside. She was admitted following an intentional acetaminophen overdose. She was started on N-Acetyl Cystine (NAC) infusion, which was later discontinued after significant improvement in liver function tests A and based on poison control recommendations. She has been medically cleared. Psychiatric evaluation by [facility] is pending for 5149. Objective Vital Signs Date Time Temp Pulse Resp B/P (MAP) Pulse Ox O2 Delivery O2 Flow Rate FiO2 11/23/24 09:51 97.4 94 19 108/49 (68) 98 Room Air 11/23/24 07:25 0.0 General: Alert, awake, oriented, not in acute distress HEENT: Temporal wasting, PERRLA, EOMI, no icterus, pallor, lymphadenopathy, carotid bruit Respiratory system: Dilated veins on the chest, Bilateral vesicular breath sounds heard, no adventitious breath sounds CVS: S1-S2 heard, grade 3/6 holosystolic murmur in the mitral area tricuspid daily radiating to the aortic and pulmonary area GI: Soft, nontender, no organomegaly, no guarding/rigidity, bowel sounds present Neuro: No focal neurological deficits present Extremities: Bilateral pedal edema without pitting, No cyanosis clubbing Musculoskeletal: No deformities Skin: Warm and dry Result Diagram: 11/23/24 0515 11/23/24 0515 Coagulation Studies Laboratory Tests Test 11/23/24 05:15 Prothrombin Time 11.1 SECONDS (9.0-12.0) INR International Normalized Ratio 1.1 INR Coagulation Comments Advance Care Planning Advanced Care plannin - 30 Minutes Assessment Assessment A 69-year-old female with multiple psychiatric comorbidities presented to the ED with intentional Tylenol overdose. Patient is admitted for the evaluation management of acetaminophen toxicity Plan Plan Intentional Tylenol overdose R Factor: 0.9 [facility] criteria: 0 LFTs significantly trended on Based on poison control recommendation, N-acetylcysteine drip discontinued She is medically cleared, [facility] evaluation for 5149 pending Normal anion gap acidosis, resolved DC Bicarb drip Asymptomatic bacteriuria Urinalysis reveals positive for leukocyte esterase Pending urine culture Prerenal STEPHENIE probably secondary to renal tubular stasis, resolved Mildly elevated proBNP, inflammatory Echo: Normal EF Heart failure ruled out Suicidal ideation 1798 Mental health evaluation once medically stable Schizophrenia Insomnia Bipolar disorder Continue home meds quetiapine, duloxetine, clonazepam Epilepsy Continue home meds lamotrigine, Topamax A1c: 5.3 Lipid panel: LDL: 77 Patient was on aspirin at home, but did not reveal any heart conditions. Held aspirin for now in view of acetaminophen toxicity Code status: Full code Diet: Full liquid DVT prophylaxis: SCD Disposition: Medically cleared, awaiting [facility] evaluation. Ayush Granados Internal Medicine Resident Date of Service: November 23, 2024 Billing Provider: LEAH HOLT MD Common Visit Codes: [id number] INP/OBS CARE(MOD) AYUSH GRANADOS, RES November 23, 2024 14:23 LEAH HOLT MD Nov 27, 2024 16:25
[2024-11-23 15:46] LABS: INR 1.1 INR; PROTHROMBIN TIME 11.1 SECONDS (9.0-12.0)
[2024-11-24 02:00] VITALS: BP 101/49; PULSE 76; RESP 16; TEMP 97.6; O2SAT 99
[2024-11-24 06:00] VITALS: BP 116/52; PULSE 82; RESP 12; TEMP 98.3; O2SAT 99
[2024-11-24 06:44] LABS: BASOPHILS % (AUTO) 0.5 % (0-1); EOSINOPHILS # (AUTO) 0.2 X10'3 (0-0.9); EOSINOPHILS % (AUTO) 5.4 % (0-6); HEMATOCRIT 32.3 % (35.0-45.0); HEMOGLOBIN 10.8 g/dl (12.0-16.0); LYMPHOCYTES # (AUTO) 1.2 X10'3 (1.1-4.8); LYMPHOCYTES % (AUTO) 29.5 % (21-51); MEAN CORPUSCULAR HEMOGLOBIN 30.4 PG (27.0-31.0); MEAN CORPUSCULAR HGB CONC 33.6 g/dL (33.0-36.5); MEAN CORPUSCULAR VOLUME 90.5 FL (78-98); MEAN PLATELET VOLUME 7.2 FL (7.4-10.4); MONOCYTES # (AUTO) 0.6 X10'3 (0-0.9); MONOCYTES % (AUTO) 13.5 % (2-12); NEUTROPHILS # (AUTO) 2.1 X10'3 (1.8-7.7); NEUTROPHILS % (AUTO) 51.1 % (42-75); PLATELET COUNT 201 X10'3 (140-440); RED BLOOD COUNT 3.56 X10'6 (4.20-5.60); RED CELL DISTRIBUTION WIDTH 14.9 % (11.5-14.5); WHITE BLOOD COUNT 4.2 X10'3 (4.5-11.0)
[2024-11-24 07:16] LABS: ALANINE AMINOTRANSFERASE 94 U/L (12-78); ALBUMIN 2.9 G/DL (3.4-5.0); ALKALINE PHOSPHATASE 75 IU/L (46-116); ANION GAP 7 (8-16); ASPARTATE AMINO TRANSFERASE 28 U/L (10-37); BILIRUBIN,TOTAL 0.6 MG/DL (0.1-1.0); BLOOD UREA NITROGEN 6 MG/DL (7-18); CALCIUM 8.2 MG/DL (8.5-10.1); CHLORIDE 115 MMOL/L (99-107); CREATININE 0.67 MG/DL (0.40-0.90); GLUCOSE 97 MG/DL (70-104); POTASSIUM 3.2 MMOL/L (3.5-5.1); SODIUM 146 MMOL/L (135-145); TOTAL CARBON DIOXIDE 23.8 MMOL/L (24-32); TOTAL PROTEIN 5.8 G/DL (6.4-8.2); eCRCL 59 ML/MIN; eGFR 87 ML/MIN
[2024-11-24 11:00] VITALS: BP 116/49; PULSE 98; RESP 16; TEMP 97.7; O2SAT 98
[2024-11-24] MEDS ORDERED: potassium Cl 40MEQ/1/2NS 520ml 520 ML IV PRN (11:15)
[2024-11-24] MEDS ORDERED: magnesium sulf-water 4G/100mL 100 ML IV PRN (11:15)
[2024-11-24] MEDS ORDERED: potassium Cl 20 mEq SR tablet PO PRN (11:15)
[2024-11-24] MEDS ORDERED: magnesium Cl slow-release 64mg tablet PO PRN (11:15)
[2024-11-24] MEDS ORDERED: magnesium sulf-water 2g/50mL 50 ML IV PRN (11:15)
[2024-11-24] MEDS: potassium Cl 20 mEq SR tablet PO PRN (12:43)
--- NOTE | 2024-11-24 18:50 | DISCHARGE SUMMARY-Residence ---
Discharge Summary Providers to CC Resident Creating Document: LONDON LONG RES CC: LEAH HOLT MD ~ Discharge Summary Assessment A 69-year-old female with multiple psychiatric comorbidities presented to the ED with intentional Tylenol overdose. Patient is admitted for the evaluation management of acetaminophen toxicity Admission Diagnosis: Acetaminophen overdose, suicide attempt Hospital Course DATE OF ADMISSION: 11/19/24 DATE OF DISCHARGE: 11/24/24 Discharge Diagnosis\Comment: Intentional Tylenol overdose Acetaminophen toxicity Normal anion gap acidosis, resolved Asymptomatic bacteriuria Prerenal STEPHENIE probably secondary to renal tubular stasis resolved Mildly elevated proBNP, inflammatory Suicidal ideation Schizophrenia Insomnia Bipolar disorder Epilepsy Operations\Procedures: None Consultants: None Complications: None Condition on DC: Stable for transfer Continued Medications: Ascorbic Acid (Vitamin C) 1,000 Mg Tablet 1 TAB PO DAILY for 15 Days, #15 TAB 0 Refills DIRECTED Aspirin (Aspirin EC) 81 Mg Tablet.dr 1 TABLET PO DAILY Biotin (Biotin) 5,000 Mcg Tab.rapdis 1 TAB PO DAILY for 30 Days, #30 TAB 0 Refills Calcium Carbonate* (Oscal*) 500 Mg Tablet 3 TAB PO BID, TAB Cetirizine HCl (Cetirizine HCl) 10 Mg Tablet 1 TAB PO DAILY for allergy symptoms for 30 Days, #30 TAB 0 Refills Cholecalciferol (Vitamin D3) (Vitamin D3) 10 Mcg Capsule 1 TAB PO DAILY Cholecalciferol (Vitamin D3) (Vitamin D3) 250 Mcg (28552 Unit) Capsule 1 CAP PO DAILY for 30 Days, #30 CAP 0 Refills Clonazepam (Klonopin) 0.5 Mg Tablet 0.5 MG PO HS, TAB Dicyclomine HCl (Dicyclomine HCl) 20 Mg Tablet 1 TAB PO QID Donepezil Hcl (Aricept) 10 Mg Tablet 1 TAB PO HS Duloxetine Hcl* (Cymbalta*) 20 Mg Capsule.dr 80 MG PO DAILY, TAB Lamotrigine (Lamotrigine) 200 Mg Tablet 1 TAB PO BID for 30 Days, #60 TAB Primidone (Mysoline) 50 Mg Tablet 1 TAB PO HS Quetiapine Fumarate (Quetiapine Fumarate) 25 Mg Tablet 1 TAB PO HS Topiramate (Topamax) 25 Mg Tablet 3 TAB PO DAILY for 30 Days, #90 TAB 0 Refills Take Topomax 25 mg One tablet in the morning and two tablets at bedtime. Vitamin E Mixed (Vitamin E) 100 Unit Tablet 1 TAB PO DAILY Zinc Gluconate (Zinc Gluconate) 100 Mg Tablet 25 MG PO DAILY for 30 Days, #60 TAB 0 Refills Discharge Summary: A 69-year-old female with past medical history of schizophrenia, insomnia, bipolar disorder, epilepsy presented to the ED after consuming about 96 tablets of Tylenol with an intention to commit suicide and cause injury and eventual . Poison control was consulted started her on N acetyl cystine drip with continuous monitoring of LFTs INR and ammonia levels. Patient continued to improve with the drip with INR always staying normal, but up trending AST and ALT. We were on continuous consultation with poison control who recommended continuing N-acetylcysteine until drop in AST and ALT back 2 times the upper limit that was seen at the time of admission. As the patient's liver enzymes started to trend down patient has been discontinued off the anastrozole drip after consultation with the poison control. Patient also had normal anion gap acidosis with the above interventions and fluid resuscitation. Patient also had elevated BUN and creatinine that improved with fluid resuscitation. Had mildly elevated proBNP that was most likely inflammatory but did not have any signs of fluid overload therefore was not intervened at this time. Patient was continuously placed on 1799 and 5150. Patient had positive urine analysis indicating UTI with the patient did not have any symptoms, therefore no antibiotics were started. After patient is medically cleared, [facility] has evaluated her and has recommended transferred to our inpatient mental health unit. While in the hospital, patient has been started on her home meds to treat her chronic medical conditions. Patient is medically stable for discharge to mental health care unit. Physical examination at discharge: General: Alert, awake, oriented, not in acute distress HEENT: Temporal wasting, PERRLA, EOMI, no icterus, pallor, lymphadenopathy, carotid bruit Respiratory system: Dilated veins on the chest, Bilateral vesicular breath sounds heard, no adventitious breath sounds CVS: S1-S2 heard, grade 3/6 holosystolic murmur in the mitral area tricuspid daily radiating to the aortic and pulmonary area GI: Soft, nontender, no organomegaly, no guarding/rigidity, bowel sounds present Neuro: No focal neurological deficits present Extremities: Bilateral pedal edema without pitting, No cyanosis clubbing Musculoskeletal: No deformities Skin: Warm and dry Labs at discharge: WBC: 4.2, H/H: 10.8/32.3, platelet count: 201 Sodium: 146, potassium: 3.2, BUN: 6, creatinine: 0.67 Imaging: Echo:Overall systolic function is normal. LVEF is 55%. RVSP: [address]: Mild wall thickening of proximal small bowel segment within the left hemiabdomen which may be due to enteritis. Cholelithiasis without evidence for acute cholecystitis. Chest x-ray: No acute cardiopulmonary disease. Discharge medications can be found above. Patient is discharged to Mental Health Care unit with the following recommendations: Follow up with primary care within two weeks in charge. Please repeat CBC with differential and CMP at least one week later. Return to ER in view of abdominal pain or increase in LFTs. *Problems/Diagnosis: (1) Tylenol overdose (2) Suicidal behavior with attempted self-injury Status: Acute Total Time Spent on D/C: > 30 Minutes Date of Service: November 24, 2024 Billing Provider: LEAH HOLT MD Common Visit Codes: [id number] DISCH DAY >30min LONDON LONG, RES November 24, 2024 18:50 LEAH HOLT MD Nov 27, 2024 16:25
[2024-11-24] MEDS ORDERED: K and/or MAG REPLACEMENT MC SCH (20:00)
[2024-11-24] MEDS ORDERED: ASCO500T10 PO (22:08)
[2024-11-24] MEDS ORDERED: VITA-288 PO (22:08)
[2024-11-24] MEDS ORDERED: PHYT100T PO (22:17)
== END 2024-11-24 15:58 | DRG 917 ==
LOC: ER 09:14 → ED HOLD 13:18 → PCU 3S 15:00
PROVIDERS: ADMIT Internal Medicine; ATTEND Internal Medicine
DX: T39.1X2A Poisoning by 4-Aminophenol derivatives, intentional self-harm, initial encounter (principal); N17.0 Acute kidney failure with tubular necrosis; R45.851 Suicidal ideations; E87.20 Acidosis, unspecified; J44.9 Chronic obstructive pulmonary disease, unspecified; G40.909 Epilepsy, unspecified, not intractable, without status epilepticus; G47.00 Insomnia, unspecified; F20.9 Schizophrenia, unspecified; R82.71 Bacteriuria; F31.9 Bipolar disorder, unspecified; Z79.82 Long term (current) use of aspirin; Z79.899 Other long term (current) drug therapy; Z90.710 Acquired absence of both cervix and uterus; Y92.89 Other specified places as the place of occurrence of the external cause
CPT/HCPCS: 36415; 71045; 74150; 80053; 80061; 80305; 80329; 81001; 82140; 82272; 83036; 83605; 83735; 83880; 84132; 85025; 85610; 86709; 86803; 87040; 87081; 87340; 87522; 93005; 93306; 96365; 96368; 97161; 97530; 99285; A6258; G0378; J0132; J3490; J7030; J7060; J7070

== ENCOUNTER 2025-03-31 01:28 | Inpatient (IN) | payer MEDICARE, MEDICAID ==
[~2025-03-31] VITALS: Ht 154.9 cm; Wt 62.0 kg
[2025-03-31] VITALS (17 sets, daily range): BP systolic 126–171; BP diastolic 79–94; PULSE 89–102; RESP 13–18; TEMP 97.3–98.6; O2SAT 99–100
[~2025-03-31 01:28] MED LIST changes: +ASCO500T10 PO; -CETI10TA14 PO; -DICL100G59 TOP; +DONE10TA44 PO; +DULO20CA50 PO; -DULO40CA2 PO; -LURA60TA4 PO; -NYST15CR50 TP; -ONDA-243 PO; +PHYT100T PO; +PRIM50TA5 PO; +VITA-288 PO; +[UNRECOGNIZED DRUG - OTHER] PO
[2025-03-31 02:05] LABS: MEAN PLATELET VOLUME 6.7 FL (7.4-10.4); RED CELL DISTRIBUTION WIDTH 14.4 % (11.5-14.5)
[2025-03-31 02:22] LABS: CREATININE 0.96 MG/DL (0.40-0.90); TOTAL CARBON DIOXIDE 22.8 MMOL/L (24-32); eCRCL 41 ML/MIN; eGFR 57 ML/MIN
[2025-03-31 03:43] LABS: LEUKOCYTE ESTERASE ,URINE NEGATIVE (Neg); NITRITES, URINE NEGATIVE (Neg); OCCULT BLOOD,URINE NEGATIVE (Neg); UA COLLECTION TYPE CLN CATCH MIDSTREAM
[2025-03-31] MEDS ORDERED: iohexol 300mg/ml 100ml inj. ONE (05:24)
--- NOTE | 2025-03-31 06:04 | Physician Documentation ---
History of Present Illness Chief Complaint: Abdominal Pain Stated Complaint: ABDOMINAL PAIN Time Seen by MD: 06:04 Primary Medical Doctor: EFREN KEMP Mode of Arrival: EMS HPI 69-year-old female presenting with abdominal pain She tells me that she normally has chronic diarrhea. For the past day she has been having pain in her right lower abdomen. She has not had normal bowel movements, and did have some small hard black pellets this morning. She reports that the pain is constant, with no radiation, mostly encompasses the right side of her abdomen. Nothing makes it better. She did have some nausea and vomiting this morning. No fevers, chills, dysuria, or other associated symptoms. No history of abdominal surgeries Medication Reconciliation Allergies: Coded Allergies: No Known Allergies (Unverified , 01/30/24) Scheduled Ascorbic Acid (Ascorbic Acid), 2 TAB PO TID, (Reported) Aspirin (Aspirin EC), 1 TABLET PO DAILY, (Reported) Calcium Carbonate* (Oscal*), 3 TAB PO BID, (Reported) Cholecalciferol (Vitamin D3) (Vitamin D3), 1 TAB PO DAILY, (Reported) Clonazepam (Klonopin), 0.5 MG PO HS, (Reported) Dicyclomine HCl (Dicyclomine HCl), 1 TAB PO QID, (Reported) Donepezil Hcl (Donepezil Hcl), 2 TAB PO HS, (Reported) Duloxetine Hcl* (Cymbalta*), 80 MG PO DAILY, (Reported) Lamotrigine (Lamotrigine), 1 TAB PO BID, (Reported) Phytonadione (Vitamin K), 1 TAB PO DAILY, (Reported) Primidone (Mysoline), 1 TAB PO HS, (Reported) Quetiapine Fumarate (Quetiapine Fumarate), 1 TAB PO HS, (Reported) Topiramate (Topamax), 3 TAB PO DAILY, (Reported) Vitamin E Mixed (Vitamin E), 1 CAP PO DAILY, (Reported) [B Complex With B-12], 1 TABLET PO DAILY, (Reported) Past Medical History Past Medical History: Seizures, Angina, COPD, Bipolar Past Surgical History: brain surgery, hysterectomy Other Past Surgical History: Breast Patient History: (DM Type 2) Diabetes mellitus type 2 FATHER ([place]) Myocardial infarction 04 GRANDFATHER OR GRANDMOTHER (62, ) FH: depression GRANDFATHER OR GRANDMOTHER, Onset:Unknown FH: lung cancer MOTHER, Onset:40's - 50 FH: melanoma FATHER Alcohol Use: None Drug Use: none Lives In: Home Occupation: retired Review of Systems Gastrointestinal: Reports: abdominal pain, nausea, vomiting, constipated, melena Physical Exam Vital Signs: Temperature: 97.2, Source: Oral, Heart Rate: 72, Respiratory Rate: 14, BP: 139/74, Pulse Oximetry: 99, Weight: 62.000 Oxygen Flow Rate: 0 Physical Exam General: This is a pleasant and nontoxic appearing older woman sitting calmly in bed HEENT: Atraumatic, oropharynx is dry Heart: Regular rate and rhythm, normal-appearing peripheral perfusion Lungs: normal work of breathing, normal oxygen saturation on room air Abdomen: Soft, appears mildly distended. Tender to palpation in the right lower abdomen, otherwise minimal tenderness, no rebound or guarding : Neuro: Alert and oriented Psychiatric: Calm and cooperative with exam Progress Results/Orders Results/Orders Vital Signs 03/31/25 03/31/25 03/31/25 03/31/25 01:33 02:30 03:30 04:31 Temp 97.2 97.2 97.2 97.2 Pulse 75 71 72 72 Resp 18 14 14 15 B/P (MAP) 136/73 142/74 (96) 150/83 (105) 139/74 (95) Pulse Ox 99 99 98 99 O2 Flow Rate 0 0 0 0 03/31/25 04:36 Resp 14 B/P (MAP) Laboratory Tests Test 03/31/25 01:48 03/31/25 03:02 White Blood Count 6.7 Red Blood Count 3.87 L Hemoglobin 10.8 L Hematocrit 32.6 L Mean Corpuscular Volume 84.2 Mean Corpuscular Hemoglobin 27.9 Mean Corpuscular Hemoglobin Concent 33.1 Red Cell Distribution Width 14.4 Platelet Count 264 Mean Platelet Volume 6.7 L Neutrophils (%) (Auto) 73.4 Lymphocytes (%) (Auto) 15.4 L Monocytes (%) (Auto) 9.9 Eosinophils (%) (Auto) 1.0 Basophils (%) (Auto) 0.3 Neutrophils # (Auto) 4.9 Lymphocytes # (Auto) 1.0 L Monocytes # (Auto) 0.7 Eosinophils # (Auto) 0.1 Basophils # (Auto) 0.0 CBC Comment Sodium Level 132 L Potassium Level 3.3 L Chloride Level 99 Carbon Dioxide Level 22.8 L Anion Gap 10 Blood Urea Nitrogen 14 Creatinine 0.96 H Estimated GFR/1.73 m2 57 BUN/Creatinine Ratio 14.6 Glucose Level 123 H Calcium Level 8.6 Total Bilirubin 0.4 Aspartate Amino Transf (AST/SGOT) 19 Alanine Aminotransferase (ALT/SGPT) 18 Alkaline Phosphatase 100 Total Protein 6.8 Albumin 3.5 Globulin 3.3 Albumin/Globulin Ratio 1.1 Lipase 41 Chemistry Comments Urine Specimen Description Cln catch midstream Urine Color Yellow Urine Clarity Clear Urine pH 5.5 Urine Specific Hardin <=1.005 Urine Protein Negative Urine Glucose (UA) Negative Urine Ketones Negative Urine Occult Blood Negative Urine Nitrite Negative Urine Bilirubin Negative Urine Urobilinogen 0.2 Urine Leukocyte Esterase Negative Urine Culture Indicated Not ind Volume Urine Centrifuged 10 ml Urine Comment EKG/XRAY/CT/US/VASC/MRI CT : Impression I personally interpreted the CT scan, and this shows a very distended colon in the right lower quadrant Consults/PCP Consults/PCP : Additional Comment Consult: I spoke to Dr. Guerrier, general surgery. He will evaluate the patient, recommends NG tube Consult: I spoke to the internal medicine service, for admission in the hospital Medical Decision Making Differential Dx:Considerations: Include: Bowel obstruction, Constipation, Diverticular disease, GI hemorrhage, Hernia, Urinary obstruction, Urinary tract infection, Urolithiasis Additional Comments The patient presents with right lower abdominal pain and on exam does have some tenderness there. Her laboratory testing is unremarkable, no UTI. CT scan shows a very distended colon, concerning for possible obstruction versus ileus versus volvulus. General surgery consulted as above. She will be admitted to the medicine service with surgical consult for further treatment. The exact cause of her symptoms and CT findings is unclear at this time. Departure Impression: Primary Impression: Right lower quadrant abdominal pain Referrals: NO PRIMARY CARE PROVIDER (PCP) Signature Scribe Signature: na Attestation: KINZA Cobb MD Mar 31, 2025 06:04
--- NOTE | 2025-03-31 07:00 | RADIOLOGY REPORT ---
Exam: CT CT ABDOMEN PELVIS W/ IV CONTRAST History: ABD PAIN Comparison Study: CT CT ABDOMEN on DOS: 11/19/24 Technique: Multidetector spiral CT of the abdomen was performed from lung bases to pubic symphysis. Axial imaging was performed with intravenous contrast following the uneventful administration of 100 ml Omnipaque 300. Coronal and sagittal multiplanar reformats were obtained from the axial data set by the technologist. Radiation Dose : 1. Abdomen/Pelvis: CTDIvol 15.7 mGy, DLP 665.3 mGy*cm. Findings: Lung Bases: Lung bases are clear. Visualized portions of the heart and pericardium are unremarkable. Liver: The liver is normal in size. No focal lesions. Gallbladder and Biliary Tree: There are multiple gallstones. No intrahepatic or extrahepatic biliary ductal dilatation. Spleen: Unremarkable Pancreas: The pancreas enhances normally and there are no focal lesions. The main pancreatic duct is not dilated Adrenal Glands: Unremarkable Kidneys: Kidneys enhance symmetrically. There is mild right hydronephrosis. No obstructive stone. GI tract: The stomach is grossly normal in appearance. Underdistended small bowel loops. There is marked fluid distention of the ascending colon and cecum measuring 12.4 cm in diameter. There are serpiginous hyperdensities in the wall of the cecum. The appendix is not visualized. No evidence of acute appendicitis. Peritoneum/mesentery/retroperitoneum. No evidence of free intraperitoneal air. No ascites. No evidence of suspicious lymphadenopathy. Abdominal Wall: Unremarkable. Vasculature: Abdominal aorta and main branches are unremarkable. Normal vascular enhancement. No evidence of abdominal aortic aneurysm or dissection. No significant arterial stenosis in the aorta or its branches. Urinary Bladder: Grossly unremarkable for degree of distention. Pelvic Organs: Unremarkable Musculoskeletal: No aggressive focal bony lesions, acute fractures or dislocation. Multilevel lumbar spondylosis. There is a right hip replacement. IMPRESSION: 1. Marked fluid distention of the ascending colon and cecum. Serpiginous hyperdensities in the wall of the cecum for which active gastrointestinal hemorrhage is not excluded. It should be noted that the patient did have similar-appearing hyperdensities in the ascending colon on prior CT earlier this year from October 2024. The cecum was excluded from the field of view on that examination precluding a comparison. Alternatively, the serpiginous hyperdensities could reflect old contrast material. Correlation for hematochezia recommended. 2. Cholelithiasis. 3. Mild right hydronephrosis. No obstructive stone. 4. Other findings as above.
--- NOTE | 2025-03-31 10:00 | HISTORY AND PHYSICAL ---
History & Physical Providers to ~ History of Present Illness Reason for Admit\Complaint: Abdominal pain History of Present Illness 69 years old female presented to the ER for evaluation of abdominal pain x1 day. She has been having bowel movements like hard plaque palate. Reports her pain as constant. Mostly in the right side of the abdomen. Patient states she had an episode of vomiting last night but no hematemesis. Denies having any melena or bright red blood per rectum. Denies having any recent fever chills dysuria frequency urgency hematuria. Denies having any focal neurological symptoms. Patient denies having any chest pain palpitations orthopnea PND or ankle edema. Patient evaluated with a CT scan of the abdomen and pelvis which showed marked fluid distention of the ascending colon and cecum. Serpiginous hyperdensities in the wall of the cecum for which active GI hemorrhage is not excluded. Per my discussion with Dr. Ole Guerrier, he intends to take the patient to the OR. Allergies: Coded Allergies: No Known Allergies (Unverified , 01/30/24) Home Medications Home Medications Active Reported Cymbalta* (Duloxetine HCl) 20 Mg Capsule. 80 Mg PO DAILY Vitamin K (Phytonadione) 100 Mcg Tablet 1 Tab PO DAILY 30 Days Vitamin E (Vitamin E Mixed) 400 Unit Capsule 1 Cap PO DAILY 30 Days Ascorbic Acid 500 Mg Tablet 2 Tab PO TID 30 Days Donepezil Hcl 10 Mg Tablet 2 Tab PO HS 30 Days Oscal* (Calcium Carbonate) 500 Mg Tablet 3 Tab PO BID [B Complex With B-12] 1 Tablet PO DAILY Mysoline (Primidone) 50 Mg Tablet 1 Tab PO HS Dicyclomine HCl 20 Mg Tablet 1 Tab PO QID Vitamin D3 (Cholecalciferol (Vitamin D3)) 10 Mcg Capsule 1 Tab PO DAILY Lamotrigine 200 Mg Tablet 1 Tab PO BID 30 Days Topamax (Topiramate) 25 Mg Tablet 3 Tab PO DAILY 30 Days Take Topomax 25 mg One tablet in the morning and two tablets at bedtime. Quetiapine Fumarate 25 Mg Tablet 1 Tab PO HS Klonopin (Clonazepam) 0.5 Mg Tablet 0.5 Mg PO HS Aspirin EC (Aspirin) 81 Mg Tablet.dr 1 Tablet PO DAILY Past Medical History Past Medical History History of seizures, COPD, bipolar disorder, angina Past Surgical History Surgical History Comment Hysterectomy right hip replacement Family History Family History: Family history was reviewed; no changes noted. Past Social History Social History Comment Does not smoke drink or do any drugs. Health Maintenance Health Maintenance Patient is current on her immunizations. Exam Vitals: Vital Signs Date Time Temp Pulse Resp B/P (MAP) Pulse Ox O2 Delivery O2 Flow Rate FiO2 03/31/25 09:48 83 18 140/79 (99) 99 0 03/31/25 04:31 97.2 General: Awake cooperative female in no acute distress. HEENT: Normocephalic, atraumatic, extraocular movements intact, sclerae anicteric, conjunctiva pink, moist oral mucosa. No rash or ulcers. Neck: Supple, no JVD, trachea midline, no lymphadenopathy. Chest: Clear to auscultation, no wheezes crackles or rhonchi. Cardiovascular: Regular rate rhythm, no murmur gallop or rub. Abdomen: Abdomen is soft, tender in the right side of the abdomen where a palpable mass is noted, hypoactive bowel sounds. Extremities: No cyanosis clubbing or edema Central Nervous System: Nonfocal. Moves all four extremities. Musculoskeletal: No joint swelling or deformities Skin: No rash or ulcers Diagnostic Data Last Recorded Lab Results: 03/31/2514703/31/25147 Additional Plan 69 years old female presented to the ER for evaluation of abdominal pain. #abdominal pain: CT scan of the abdomen and pelvis shows marked fluid distention of the ascending colon and cecum. Serpiginous hyperdensities in the wall of the cecum for which active GI bleeding can not be excluded. Per my discussion with Dr. Ole Guerrier, patient is likely to have a volvulus and he intends to take the patient to the OR today. We will address pain control as necessary , keep her NPO and start on IV fluids. # history of bipolar disorder/seizures: Patient is on multiple medications including clonazepam, lamotrigine, and Topamax which will be continued once she is able to take p.o. #COPD: Without exacerbation. Inhaled bronchodilators if necessary # bipolar disorder/depression: Continue Cymbalta and and lamotrigine # hypokalemia: Replace per protocol Hyponatremia: IV fluids and monitor daily BMP. #code status: Patient wishes to be full code Date of Service: Mar 31, 2025 Billing Provider: EDIN PRIDE MD Common Visit Codes: [id number] INP/OBS CARE (HIGH) EDIN PRIDE MD Mar 31, 2025 09:59
[2025-03-31] MEDS ORDERED: BUPIVAcaine/PF 2.5mg/ml (0.25%) 10ml vial ONE (11:43)
[2025-03-31] MEDS ORDERED: LIDOcaine 1% 30ml preserv. free vial ONE (11:44)
[2025-03-31] MEDS ORDERED: BUPIVACAINE liposomal/PF 13.3 MG/ML 10mL vial IM ONE (11:45)
--- NOTE | 2025-03-31 11:46 | CONSULTATION REPORT ---
History of Present Illness Providers to CC CC: HALEIGH RUIZ MD ~ Refering MD: EFREN KEMP History of Present Illness Otherwise healthy 69-year-old woman with intermittent GI symptoms over the last few months that included abdominal distention, intermittent diarrhea with constipation. Over the last few days she has had progressive abdominal distention and presented to the emergency room last night with the abdominal pain, nausea and vomiting, distention and obstipation. CT scan was interpreted as the followin. Marked fluid distention of the ascending colon and cecum. Serpiginous hyperdensities in the wall of the cecum for which active gastrointestinal hemorrhage is not excluded. It should be noted that the patient did have similar-appearing hyperdensities in the ascending colon on prior CT earlier this year from October 2024. The cecum was excluded from the field of view on that examination precluding a comparison. Alternatively, the serpiginous hyperdensities could reflect old contrast material. Correlation for hematochezia recommended. I reviewed the CT scan and agree that the ascending colon is completely fluid- filled, however, there was distention of the small bowel and complete decompression of the transverse colon. The fluid-filled, distended cecum appears most likely to be a complete or partial cecal volvulus with appearance of a closed loop obstruction. This is not appear to be a cecal bascule. Patient reports having colonoscopy just three years ago, so obstructing malignancy seems highly unlikely. Patient currently has right-sided abdominal pain and nausea, however, has not had any emesis since last night She is not passing any flatus Allergies: Coded Allergies: No Known Allergies (Unverified , 01/30/24) Home Medications Home Medications Active Reported Cymbalta* (Duloxetine HCl) 20 Mg Capsule.dr 80 Mg PO DAILY Vitamin K (Phytonadione) 100 Mcg Tablet 1 Tab PO DAILY 30 Days Vitamin E (Vitamin E Mixed) 400 Unit Capsule 1 Cap PO DAILY 30 Days Ascorbic Acid 500 Mg Tablet 2 Tab PO TID 30 Days Donepezil Hcl 10 Mg Tablet 2 Tab PO HS 30 Days Oscal* (Calcium Carbonate) 500 Mg Tablet 3 Tab PO BID [B Complex With B-12] 1 Tablet PO DAILY Mysoline (Primidone) 50 Mg Tablet 1 Tab PO HS Dicyclomine HCl 20 Mg Tablet 1 Tab PO QID Vitamin D3 (Cholecalciferol (Vitamin D3)) 10 Mcg Capsule 1 Tab PO DAILY Lamotrigine 200 Mg Tablet 1 Tab PO BID 30 Days Topamax (Topiramate) 25 Mg Tablet 3 Tab PO DAILY 30 Days Take Topomax 25 mg One tablet in the morning and two tablets at bedtime. Quetiapine Fumarate 25 Mg Tablet 1 Tab PO HS Klonopin (Clonazepam) 0.5 Mg Tablet 0.5 Mg PO HS Aspirin EC (Aspirin) 81 Mg Tablet.dr 1 Tablet PO DAILY Past Medical History Medical History Comment Depression/anxiety Hypertension Past Surgical History Surgical History Comment Hysterectomy Past Family History Family History Comment Noncontributory Family History: (DM Type 2) Diabetes mellitus type 2 FATHER ([place]) Myocardial infarction 04 GRANDFATHER OR GRANDMOTHER (62, ) FH: depression GRANDFATHER OR GRANDMOTHER, Onset:Unknown FH: lung cancer MOTHER, Onset:40's - 50 FH: melanoma FATHER Past Social History Social History Comment Noncontributory Health Maintenance Health Maintenance Not applicable Physical Exam Last Vital Signs Recorded: RN Vital Signs have been reviewed: Yes, Temperature: 97.2, Source: Oral, Heart Rate: 85, Respiratory Rate: 15, BP: 142/85, Pulse Oximetry: 97, Weight: 62.000 General Appearance: alert, WD/WN, no apparent distress EENT: PERRL/EOMI; No: scleral icterus (R), scleral icterus (L) Neck: normal inspection, supple Respiratory: lungs clear Cardiovascular: normal peripheral pulses, regular rate, rhythm Gastrointestinal Distended Palpable semi soft mass in the right abdomen with tenderness to palpation No clear rebound tenderness Rectal: deferred Back: normal inspection Extremities: non-tender, no edema Neurologic: oriented x4 Psychiatric: normal mood/affect; No: anxiety Skin: normal color Lymphatic: no adenopathy Results Diagram Lab Result Diagram: 03/31/25 0148 03/31/25 014 Assessment/Plan Problems/Diagnosis: (1) Cecal volvulus Assessment & Plan: The risks, benefits, and alternatives to an exploratory laparotomy, possible bowel resection were discussed with the patient and her daughter. Risks include, but are not limited to, bleeding, infection, injury to intra-abdominal structures, leakage from the intestine and the need for additional surgical procedures. Patient and daughter verbalized understanding and we will proceed urgently to the operating room. HALEIGH RUIZ MD Mar 31, 2025 11:46
[2025-03-31] MEDS ORDERED: HYDROmorphone/PF 0.2 MG/ML SYRINGE IV PRN ×2 (12:25)
[2025-03-31] MEDS ORDERED: ondansetron/PF 4mg/2ml inj IV PRN (12:25)
[2025-03-31] MEDS ORDERED: fentaNYL/PF 50MCG/1 ML 2ML syringe IV PRN (12:25)
[2025-03-31] MEDS: ringers solution, lacted 1,000 ML IV SCH (12:25)
[2025-03-31] MEDS ORDERED: enalaprilat 1.25mg/ml 2ml vial IV PRN (12:25)
[2025-03-31] MEDS ORDERED: labetalol 20mg/4ml (5mg/ml) syringe IV PRN (12:25)
[2025-03-31] MEDS ORDERED: midazolam 1 mg/ML 2ml injection ONE (12:34)
[2025-03-31] MEDS ORDERED: fentaNYL/PF 50MCG/1 ML 2ML syringe ONE (12:34)
[2025-03-31] MEDS ORDERED: ondansetron/PF 4mg/2ml inj ONE (12:47)
[2025-03-31] MEDS ORDERED: ceFOXitin 1000 MG inj ONE ×2 (12:47→12:49)
[2025-03-31] MEDS ORDERED: dexamethasone sod phosphate 4mg/ml inj. ONE (12:47)
[2025-03-31] MEDS ORDERED: rocuronium 10mg/ml inj IV ONE (12:47)
[2025-03-31] MEDS ORDERED: LIDOcaine 2% (20mg/ml) 5ml vial ONE (12:47)
[2025-03-31] MEDS ORDERED: propofol inj 20 ML IV ONE (12:47)
[2025-03-31] MEDS ORDERED: acetaminophen 1,000mg/100ml IV 100 ML IV ONE (12:47)
--- NOTE | 2025-03-31 12:57 | RADIOLOGY REPORT ---
CLINICAL INFORMATION: Preoperative examination. TECHNIQUE: Single AP portable chest radiograph was obtained. COMPARISON: DI CHEST,SINGLE VIEW on DOS: 11/19/24, DI CHEST,TWO VIEWS on DOS: 01/30/24, CHEST,SINGLE VIEW on DOS: 02/02/21 FINDINGS: Lungs: No focal consolidation, pneumothorax, or pleural effusion. Cardiac: Heart size is within normal limits. Pulmonary vasculature: Unremarkable. Mediastinum/lake: Unremarkable. Bones: There are fractures of the right 7th through 9th posterolateral ribs, of uncertain chronicity, may be subacute or chronic, new compared to the prior radiograph. Other: No other significant findings. IMPRESSION: 1. Left posterolateral 7th through 9th rib fractures, may be chronic or subacute, new compared to the prior radiographs. 2. Otherwise, no evidence of acute disease in the chest.
[2025-03-31] MEDS ORDERED: morphine 4 MG/ML inj SYRINge IV PRN (13:05)
[2025-03-31] MEDS ORDERED: morphine 4 MG/ML inj SYRINge ONE (13:36)
[2025-03-31] MEDS ORDERED: glycopyrrolate 0.2mg/ml inj ONE (14:01)
[2025-03-31] MEDS: morphine 4 MG/ML inj SYRINge IV PRN (14:25)
--- NOTE | 2025-03-31 14:36 | OPERATIVE REPORT ---
Operative Report Providers to CC CC: OLE RUIZ MD ~ Date of Procedure: Mar 31, 2025 Pre-Operative Diagnosis: Cecal volvulus Post-Operative Diagnosis SAME as PRE-Op Procedure Performed Exploratory laparotomy Right hemicolectomy Bilateral transversus abdominis plane nerve blocks by injection using 266 mg of Exparel Surgeon: Ole Ruiz MD FACS Research Assistant Professor None Anesthesiologist: Gualberto Freed Type of Anesthesia: General Findings: Complaint cecal volvulus with a closed loop obstruction Isoperistaltic ileocolic anastomosis Wound class II Complications None Prosthetics\Implants used: None Estimated Blood Loss: 30 cc Specimen Removed: Cecal volvulus with ascending colon and hepatic flexure Description of Procedure: Patient was brought urgently to the operating room and identified by the nursing staff and the attending physician. Patient was placed supine and general anesthesia was induced. Preoperative antibiotics were given. Horton catheter was placed. The abdomen was prepped and draped in the standard sterile fashion. Generous midline incision was made following administration of local anesthetic. On entering the peritoneal cavity, the right colon and cecum were found to be markedly distended and rotated approximately 360 clockwise consistent with volvulus. The cecum and ascending colon were assessed for viability and found to be viable. Lateral peritoneal attachments to the cecum and ascending colon were incised. Dissection was carried up to the hepatic flexure freeing the right colon. Terminal ileum was divided just proximal to the ileocecal valve using a linear cutting stapler. The hepatic flexure was then divided, also using a linear cutting stapler. Vessels/mesentery were divided using the LigaSure device and the ascending colon and terminal ileum were passed off the field. Assessing for anastomosis target in the transverse colon, the decision to completely mobilize the hepatic flexure and resect this was made due to redundancy of the transverse colon. Hepatic flexure was subsequently mobilized, taking care to protect the underlying duodenum and the retroperitoneum. The proximal transverse colon was divided with a linear cutting stapler and the mesentery to the short segment of colon was also divided using the LigaSure device. This specimen was passed off and included with the original specimen. Neoterminal ileum was placed in an isoperistaltic position adjacent to the proximal transverse colon and stay sutures were used with 3-0 Vicryl suture. Enterotomy was made and colotomy was made and a stapled ileocolic anastomosis was created. The common channel enterotomy was then closed with a running 3/0 V lock absorbable suture in a [place] fashion followed by burying the suture line with a running Lembert absorbable suture. Anastomosis and remaining bowel was reduced back into the abdomen and covered with omentum. Bilateral transversus abdominis plane nerve blocks by injection were then placed using a combination of Marcaine and Exparel. Midline fascia was closed with a running absorbable suture using PDS. Wound was irrigated and skin closed with skin johnie. Patient was awakened and taken to the postanesthesia care unit in stable condition. Counts repoted as correct: Yes OLE RUIZ MD Mar 31, 2025 14:36
[2025-03-31] MEDS: normal saline 1000ml 1,000 ML IV SCH (14:40)
[2025-03-31] MEDS: fentaNYL/PF 50MCG/1 ML 2ML syringe IV PRN (14:44)
[2025-03-31] MEDS: HYDROmorph/NS 0.2 mg/ml PCA 100 ML IV SCH (15:00)
[2025-03-31] MEDS ORDERED: potassium Cl 40MEQ/1/2NS 520ml 520 ML IV PRN (18:35)
[2025-03-31] MEDS ORDERED: magnesium sulf-water 4G/100mL 100 ML IV PRN (18:35)
[2025-03-31] MEDS ORDERED: magnesium sulf-water 2g/50mL 50 ML IV PRN (18:35)
[2025-03-31] MEDS ORDERED: magnesium Cl slow-release 64mg tablet PO PRN (18:35)
[2025-03-31] MEDS: heparin, porcine 5000 units/ml vial SQ SCH (22:10)
[2025-04-01] VITALS (7 sets, daily range): BP systolic 110–150; BP diastolic 55–77; PULSE 85–108; RESP 16–19; TEMP 97.7–99.5; O2SAT 96–100
[2025-04-01] MEDS: potassium Cl 20 mEq SR tablet PO PRN ×2 (04:48→08:42)
--- NOTE | 2025-04-01 08:07 | ELECTROCARDIOGRAPH REPORT ---
[facility] Test Date: 2025-03-31 Test Time: 01:32:59 Pat Name: VANGIE CISSE Department: EMERGENCY ROOM Room: [place] [address] Gender: F Technical Staff Assistant: SUSHIL : 1955 Requested By: CATALINO BRYSON Order Number: [id number] Reading MD: Measurements Intervals [place] Rate: 73 P: 54 [place]: 197 QRS: 63 QRSD: 78 T: 64 QT: 422 QTc: 465 Interpretive Statements Sinus rhythm Probable left atrial enlargement Please click the below link to view image of tracing.
[2025-04-01] MEDS: duloxetine 20mg capsule.DR PO SCH (09:03)
--- NOTE | 2025-04-01 17:16 | PROGRESS NOTE ---
Daily Progress Note Providers to CC ~ Antibiotic Timeout Antibiotic Ordered?: Yes Subjective No complaints. Patient is seen resting comfortably. On clear liquid diet. Objective Vital Signs Date Time Temp Pulse Resp B/P (MAP) Pulse Ox O2 Delivery O2 Flow Rate FiO2 04/01/25 11:00 97.7 102 17 122/61 (81) 99 Room Air 04/01/25 08:00 0.0 Result Diagram: 03/31/2514703/31/25147 Elderly frail female in no acute distress HEENT normocephalic atraumatic extraocular movements are intact Neck supple, no JVD Chest: Clear to auscultation, no wheezes crackles rhonchi Heart: Regular rate rhythm, no murmur or gallop rub Abdomen is soft, tender as expected, positive bowel sounds Extremities no cyanosis clubbing or edema Neuro exam is nonfocal. Other Results Medications reviewed Problem\Assessment\Plan 69 years old female presented to the ER for evaluation of abdominal pain. #Abdominal pain: CT scan of the abdomen and pelvis showed marked fluid distention of the ascending colon and cecum. Serpiginous hyperdensities in the wall of the cecum for which active GI bleeding can not be excluded. Per my discussion with Dr. Ole Guerrier, patient is likely to have a volvulus and patient underwent right hemicolectomy . Patient is doing well postoperatively #COPD: Without exacerbation. Inhaled bronchodilators if necessary # bipolar disorder/depression: Continue Cymbalta and and lamotrigine # hypokalemia: Replace per protocol as needed. Hyponatremia: IV fluids and monitor daily BMP. #code status: Patient wishes to be full code Date of Service: Apr 01, 2025 Billing Provider: EDIN PRIDE MD Common Visit Codes: [id number] INP/OBS CARE(HIGH) EDIN PRIDE MD Apr 01, 2025 17:16
[2025-04-01] MEDS: ondansetron/PF 4mg/2ml inj IV PRN (19:30)
[2025-04-01] MEDS: ringers solution, lacted 1,000 ML IV SCH (20:45)
--- NOTE | 2025-04-01 20:48 | PROGRESS NOTE ---
Progress Note Dictate Providers to CC ~ Progress Note: Subsequent surgical care on a 69-year-old woman who is postoperative day 1, status post exploratory laparotomy with a right hemicolectomy for cecal volvulus Had some nausea and emesis this afternoon She is not on any maintenance IV fluids so I started these this evening Pain adequately controlled Incision dressed and dry Sips and ice chips until passing flatus Antibiotic Ordered?: N/A Objective Vitals Vital Signs Date Time Temp Pulse Resp B/P (MAP) Pulse Ox O2 Delivery O2 Flow Rate FiO2 04/01/25 11:00 97.7 102 17 122/61 (81) 99 Room Air 04/01/25 08:00 0.0 Lab Results: 03/31/25 0148 03/31/25 0148 Problem\Assessment\Plan Problems/Diagnosis: (1) Cecal volvulus HALEIGH RUIZ MD Apr 01, 2025 20:48
[2025-04-01] MEDS: donepezil 5mg tablet PO SCH (21:40)
[2025-04-01] MEDS: calcium carbonate 500mg tablet PO SCH (21:42)
[2025-04-02] VITALS (7 sets, daily range): BP systolic 126–159; BP diastolic 64–80; PULSE 89–103; RESP 14–17; TEMP 97.6–99; O2SAT 96–100
[2025-04-02] MEDS: cholecalciferol (vitamin D3) 400 unit (10mcg) tablet PO SCH (08:26)
[2025-04-02] MEDS: aspirin 81mg, enteric-coated 1 TAB TABLET.DR PO SCH (08:28)
--- NOTE | 2025-04-02 09:10 | RADIOLOGY REPORT ---
Date: 04/02/2025 08:14 AM Examination: DI ABDOMEN,SINGLE VIEW(KUB) History: abdominal distention Comparison: 03/31/2025 TECHNIQUE: Frontal views of the abdomen was obtained. FINDINGS: Mildly dilated loops of small bowel are visualized in the colon. The lung bases are unremarkable. No acute osseous abnormality identified. IMPRESSION: Mildly dilated loops of small bowel are visualized in the colon.
--- NOTE | 2025-04-02 18:47 | PROGRESS NOTE ---
Progress Note Dictate Providers to CC ~ Progress Note: Subsequent surgical care on a 69-year-old woman who is postoperative day 2, status post exploratory laparotomy with a right hemicolectomy for cecal volvulus Number nausea improved and no vomiting today Abdomen remains softly distended KUB shows gas in the descending colon Pain adequately controlled Incision Clean, dry, and intact Sips and ice chips until passing flatus Antibiotic Ordered?: N/A Objective Vitals Vital Signs Date Time Temp Pulse Resp B/P (MAP) Pulse Ox O2 Delivery O2 Flow Rate FiO2 04/02/25 15:00 16 04/02/25 11:09 97.6 89 146/74 (98) 97 Room Air 04/02/25 02:19 0.0 Lab Results: 03/31/25 0148 03/31/25 0148 Problem\Assessment\Plan Problems/Diagnosis: (1) Cecal volvulus HALEIGH RUIZ MD Apr 02, 2025 18:47
[2025-04-03 06:38] VITALS: BP 133/68; PULSE 90; RESP 15; TEMP 97.5; O2SAT 97
[2025-04-03 07:55] VITALS: RESP 15; O2SAT 97
[2025-04-03] MEDS: PCA WASTE DOCUMENTATION 1 MG ML MC SCH ×2 (10:51→18:58)
[2025-04-03 11:00] VITALS: BP 124/70; PULSE 95; RESP 18; TEMP 97; O2SAT 95
[2025-04-03 12:57] LABS: MEAN PLATELET VOLUME 6.6 FL (7.4-10.4); RED CELL DISTRIBUTION WIDTH 14.9 % (11.5-14.5)
[2025-04-03 13:12] LABS: CREATININE 0.72 MG/DL (0.40-0.90); TOTAL CARBON DIOXIDE 27.3 MMOL/L (24-32); eCRCL 55 ML/MIN; eGFR 80 ML/MIN
[2025-04-03 17:56] VITALS: BP 141/73; PULSE 92; RESP 20; TEMP 98.5; O2SAT 93
--- NOTE | 2025-04-03 18:40 | PROGRESS NOTE ---
Progress Note Dictate Providers to CC ~ Progress Note: Subsequent surgical care on a 69-year-old woman who is postoperative day 3, status post exploratory laparotomy with a right hemicolectomy for cecal volvulus No nausea today Tolerating clear liquid diet Abdomen remains softly distended Pain adequately controlled Patient would like Tylenol only Incision Clean, dry, and intact Continue full liquid diet until return of bowel function Antibiotic Ordered?: No Objective Vitals Vital Signs Date Time Temp Pulse Resp B/P (MAP) Pulse Ox O2 Delivery O2 Flow Rate FiO2 04/03/25 17:56 98.5 92 20 141/73 (95) 93 Room Air 04/02/25 20:00 0.0 Lab Results: 04/03/25 1247 04/03/25 1247 Problem\Assessment\Plan Problems/Diagnosis: (1) Cecal volvulus HALEIGH RUIZ MD Apr 03, 2025 18:39
--- NOTE | 2025-04-03 19:05 | PROGRESS NOTE ---
Daily Progress Note Providers to CC ~ Antibiotic Timeout Antibiotic Ordered?: Yes Subjective Is seen in her room in presence of nursing staff walk bowel sounds diminished patient is not passing gas. Currently on clear liquid diet. Objective Vital Signs Date Time Temp Pulse Resp B/P (MAP) Pulse Ox O2 Delivery O2 Flow Rate FiO2 04/03/25 17:56 98.5 92 20 141/73 (95) 93 Room Air 04/02/25 20:00 0.0 Result Diagram: 04/03/25 1247 04/03/25 1247 General-patient not in any acute distress, alert awake chronically ill-appearing HEENT-atraumatic normocephalic, neck supple without elevated JVD, No lymphadenopathy bilaterally. Eyes-no icterus or pallor seen in eyes Chest-clear to auscultation bilaterally, breathing nonlabored no tachypnea, no wheezing, no crepitation, no crackles. Heart-S1-S2 normal, regular heart rate no murmur Abdomen bowel sounds very diminished on auscultation, soft nondistended , midline surgical dressing and johnie in place, no guarding, no rigidity Skin no active skin rash Neurology-grossly intact, nonfocal alert awake oriented Extremity- no pedal edema able to move all 4 extremities Psychiatry - patient is not confused or agitated cooperated during physical examination Problem\Assessment\Plan 69 years old female presented to the ER for evaluation of abdominal pain. #Abdominal pain: CT scan of the abdomen and pelvis showed marked fluid distention of the ascending colon and cecum. Serpiginous hyperdensities in the wall of the cecum for which active GI bleeding can not be excluded. P Dr. Ole Guerrier consulted on this case by hospitalist team , patient is currently postoperative day 3, status post exploratory laparotomy with a right hemicolectomy for cecal volvulus #COPD: Without exacerbation. Inhaled bronchodilators if necessary # bipolar disorder/depression: Continue Cymbalta and and lamotrigine # hypokalemia: Replace per protocol as needed. Hyponatremia: resolved , IV fluids and monitor daily BMP. #code status: Patient wishes to be full code Patient's current condition is guarded I will continue to follow patient in a.m. Date of Service: Apr 03, 2025 Billing Provider: RYNE VILLALTA MD Common Visit Codes: [id number] INP/OBS CARE(HIGH) RYNE VILLALTA MD Apr 03, 2025 19:05
[2025-04-03 20:00] VITALS: RESP 20; O2SAT 93
[2025-04-03 22:00] VITALS: BP 134/70; PULSE 92; RESP 16; TEMP 98.5; O2SAT 95
[2025-04-04] VITALS (7 sets, daily range): BP systolic 134–174; BP diastolic 58–81; PULSE 84–95; RESP 16–17; TEMP 98–98.8; O2SAT 98–100
[2025-04-04 14:13] LABS: MEAN PLATELET VOLUME 6.7 FL (7.4-10.4); RED CELL DISTRIBUTION WIDTH 14.4 % (11.5-14.5)
[2025-04-04 14:23] LABS: CREATININE 0.75 MG/DL (0.40-0.90); TOTAL CARBON DIOXIDE 26.2 MMOL/L (24-32); eCRCL 53 ML/MIN; eGFR 76 ML/MIN
[2025-04-04] MEDS: HYDROcodone/acetaminophen 5mg/325mg tablet PO PRN (15:02)
--- NOTE | 2025-04-04 15:25 | PROGRESS NOTE ---
Progress Note Dictate Providers to CC ~ Progress Note: Postoperative day 4, status post exploratory laparotomy with right hemicolectomy for cecal volvulus Doing well Stooling but feels like she has some impacted stool Hypokalemic Incision clean, dry, and intact Abdomen soft and nondistended Regular diet as tolerated Rectal suppositories Okay to manually disimpact if medically necessary by the medical team Safe for discharge from a surgical standpoint once medically clear and stable Antibiotic Ordered?: No Objective Vitals Vital Signs Date Time Temp Pulse Resp B/P (MAP) Pulse Ox O2 Delivery O2 Flow Rate FiO2 04/04/25 15:02 18 04/04/25 11:17 98.0 88 153/71 (98) 100 Room Air 04/02/25 20:00 0.0 Lab Results: 04/04/25 1348 04/04/25 1348 Problem\Assessment\Plan Problems/Diagnosis: (1) Cecal volvulus HALEIGH RUIZ MD Apr 04, 2025 15:24
[2025-04-04] MEDS: bisacodyl 10mg suppository rectal RC STA (16:20)
--- NOTE | 2025-04-04 18:54 | PROGRESS NOTE ---
Daily Progress Note Providers to CC ~ Antibiotic Timeout Antibiotic Ordered?: No Subjective Patient is seen in her room in presence of nursing staff [place] today. Patient mentioned she passed liquidy stool but still feel fullness in the rectal area. I did rectal examination today in patient has hard pebble like stools in rectal vault which I showed it to patient also. Rectal suppository ordered. Dr. Guerrier following the patient patient is possible discharge in a.m. if clinically stable. Objective Vital Signs Date Time Temp Pulse Resp B/P (MAP) Pulse Ox O2 Delivery O2 Flow Rate FiO2 04/04/25 18:28 Room Air 04/04/25 15:02 18 04/04/25 11:17 98.0 88 153/71 (98) 100 04/02/25 20:00 0.0 Result Diagram: 04/04/25 1348 04/04/25 1348 General-patient not in any acute distress, alert awake chronically ill-appearing HEENT-atraumatic normocephalic, neck supple without elevated JVD, No lymphadenopathy bilaterally. Eyes-no icterus or pallor seen in eyes Chest-clear to auscultation bilaterally, breathing nonlabored no tachypnea, no wheezing, no crepitation, no crackles. Heart-S1-S2 normal, regular heart rate no murmur Abdomen bowel sounds very diminished on auscultation, soft nondistended , midline surgical dressing and johnie in place, no guarding, no rigidity rectal examination today , hard pebble like stools in rectal vault Skin no active skin rash Neurology-grossly intact, nonfocal alert awake oriented Extremity- no pedal edema able to move all 4 extremities Psychiatry - patient is not confused or agitated cooperated during physical examination Problem\Assessment\Plan 69 years old female presented to the ER for evaluation of abdominal pain. #Abdominal pain: CT scan of the abdomen and pelvis showed marked fluid distention of the ascending colon and cecum. Serpiginous hyperdensities in the wall of the cecum for which active GI bleeding can not be excluded. P Dr. Ole Guerrier consulted on this case by hospitalist team , patient is currently postoperative day 3, status post exploratory laparotomy with a right hemicolectomy for cecal volvulus #COPD: Without exacerbation. Inhaled bronchodilators if necessary # bipolar disorder/depression: Continue Cymbalta and and lamotrigine # hypokalemia: Replace per protocol as needed. Hyponatremia: resolved , IV fluids and monitor daily BMP. #code status: Patient wishes to be full code Patient's current condition is guarded I will continue to follow patient in a.m. Dr. Guerrier following the patient patient is possible discharge in a.m. if clinically stable. Date of Service: Apr 04, 2025 Billing Provider: RYNE VILLALTA MD Common Visit Codes: [id number] INP/OBS CARE(HIGH) RYNE VILLALTA MD Apr 04, 2025 18:54
[2025-04-05 05:00] VITALS: BP 167/73; PULSE 84; RESP 16; TEMP 98.1; O2SAT 99
[2025-04-05 08:00] VITALS: RESP 16; O2SAT 99
[2025-04-05 10:00] VITALS: BP 143/59; PULSE 97; RESP 16; TEMP 98; O2SAT 99
[2025-04-05] MEDS ORDERED: OSC500T PO (12:36)
[2025-04-05] MEDS ORDERED: POLY17PO10 PO (12:38)
[2025-04-05 15:19] VITALS: RESP 18
--- NOTE | 2025-04-05 20:30 | DISCHARGE SUMMARY ---
Discharge Summary Providers to CC ~ Discharge Summary Admission Diagnosis: Cecal volvulus Hospital Course DATE OF ADMISSION: March 31, 2025 DATE OF DISCHARGE: April 05, 2025 CBC testing done on April 04, 2025 WBC 5.5 hemoglobin 9.1 hematocrit 27.4 sed rate 42. CMP done on April 04, 2025 sodium 139 potassium 3.1 creatinine 0.75 GFR 76 procalcitonin 0.16. Urine testing negative for any UTI. ABDOMEN,SINGLE VIEW(KUB)IMPRESSION: Mildly dilated loops of small bowel are visualized in the colon. CHEST,SINGLE VIEWIMPRESSION: 1. Left posterolateral 7th through 9th rib fractures, may be chronic or subacute, new compared to the prior radiographs. 2. Otherwise, no evidence of acute disease in the chest. CT ABDOMEN PELVIS IMPRESSION: 1. Marked fluid distention of the ascending colon and cecum. Serpiginous hyperdensities in the wall of the cecum for which active gastrointestinal hemorrhage is not excluded. It should be noted that the patient did have similar-appearing hyperdensities in the ascending colon on prior CT earlier this year from October 2024. The cecum was excluded from the field of view on that examination precluding a comparison. Alternatively, the serpiginous hyperdensities could reflect old contrast material. Correlation for he matochezia recommended. 2. Cholelithiasis. 3. Mild right hydronephrosis. No obstructive stone. 4. Other findings as above. Discharge Diagnosis\Comment: #Abdominal pain due to cecal volvulus #COPD: Without exacerbation. # bipolar disorder/depression # hypokalemia # Hyponatremia: resolved Operations\Procedures: status post exploratory laparotomy with a right hemicolectomy for cecal volvulus Consultants: Dr Ole Guerrier Complications: None Condition on DC: Stable New Medications: Polyethylene Glycol 3350* (Miralax*) 1 Packet Packet 1 PACKET PO HS for 30 Days, #30 PACKET Changed Medications: Calcium Carbonate* (Oscal*) 500 Mg Tablet 1 TAB PO BID for 30 Days, #60 TAB (Changed from: 3 TAB) Continued Medications: Ascorbic Acid (Ascorbic Acid) 500 Mg Tablet 2 TAB PO TID for 30 Days, #30 TAB 0 Refills Aspirin (Aspirin EC) 81 Mg Tablet. 1 TABLET PO DAILY [B Complex With B-12] () 1 TABLET PO DAILY Cholecalciferol (Vitamin D3) (Vitamin D3) 10 Mcg Capsule 1 TAB PO DAILY Clonazepam (Klonopin) 0.5 Mg Tablet 0.5 MG PO HS, TAB Dicyclomine HCl (Dicyclomine HCl) 20 Mg Tablet 1 TAB PO QID Donepezil Hcl (Donepezil Hcl) 10 Mg Tablet 2 TAB PO HS for 30 Days, #30 TAB 0 Refills Duloxetine Hcl* (Cymbalta*) 20 Mg Capsule.dr 80 MG PO DAILY, TAB Lamotrigine (Lamotrigine) 200 Mg Tablet 1 TAB PO BID for 30 Days, #60 TAB Phytonadione (Vitamin K) 100 Mcg Tablet 1 TAB PO DAILY for 30 Days, #30 TAB 0 Refills Primidone (Mysoline) 50 Mg Tablet 1 TAB PO HS Quetiapine Fumarate (Quetiapine Fumarate) 25 Mg Tablet 1 TAB PO HS Topiramate (Topamax) 25 Mg Tablet 3 TAB PO DAILY for 30 Days, #90 TAB 0 Refills Take Topomax 25 mg One tablet in the morning and two tablets at bedtime. Vitamin E Mixed (Vitamin E) 400 Unit Capsule 1 CAP PO DAILY for 30 Days, #60 CAP 0 Refills Discharge Summary: 69 years old female presented to the ER for evaluation of abdominal pain. During hospitalization patient was treated for #Abdominal pain: CT scan of the abdomen and pelvis showed marked fluid distention of the ascending colon and cecum. Serpiginous hyperdensities in the wall of the cecum for which active GI bleeding can not be excluded. P Dr. Ole Guerrier consulted on this case by hospitalist team , patient is currently postoperative day 3, status post exploratory laparotomy with a right hemicolectomy for cecal volvulus #COPD: Without exacerbation. Inhaled bronchodilators if necessary # bipolar disorder/depression: Continue Cymbalta and and lamotrigine # hypokalemia: Replace per protocol as needed. Hyponatremia: resolved , IV fluids and monitor daily BMP. #code status: Patient wishes to be full code Patient is feeling better she has been afebrile and getting discharged home in stable condition. Patient is seen and examined on the day of discharge. All labs, diagnostic workup and discharge plan discussed with patient and family members in detail before her discharge. All questions and queries answered to the best of my professional medical knowledge. I heard patient's concerns and address appropriately. Patient was [facility] clinical program manager involved in patient's discharge plan. Discharge instructions provided to the patientActivity as tolerated.please Read the side effects of all your medication and discuss with primary care physician in outpatient setting. Diet as tolerated. No lifting greater than 20 pounds for 4 weeks. Follow-up with Dr. Ole Guerrier in 1-2 weeks. Call [phone] May shower. General-patient not in any acute distress, alert awake chronically ill-appearing HEENT-atraumatic normocephalic, neck supple without elevated JVD, No lymphadenopathy bilaterally. Eyes-no icterus or pallor seen in eyes Chest-clear to auscultation bilaterally, breathing nonlabored no tachypnea, no wheezing, no crepitation, no crackles. Heart-S1-S2 normal, regular heart rate no murmur Abdomen bowel sounds very diminished on auscultation, soft nondistended , midline surgical dressing and johnie in place, no guarding, no rigidity rectal examination today , hard pebble like stools in rectal vault Skin no active skin rash Neurology-grossly intact, nonfocal alert awake oriented Extremity- no pedal edema able to move all 4 extremities Psychiatry - patient is not confused or agitated cooperated during physical examination *Problems/Diagnosis: (1) Cecal volvulus Total Time Spent on D/C: > 30 Minutes Date of Service: Apr 05, 2025 Billing Provider: RYNE VILLALTA MD Common Visit Codes: [id number] DISCH DAY >30min RYNE VILLALTA MD Apr 05, 2025 20:30
== END 2025-04-05 15:25 | disposition home health service (06) | DRG 330 ==
LOC: ER 01:28 → ED HOLD 08:06 → SUR 3N 16:04
PROVIDERS: ADMIT Internal Medicine; ATTEND Internal Medicine
PROC: 3E0T3BZ Introduction of Anesthetic Agent into Peripheral Nerves and Plexi, Percutaneous Approach (ICD-10-PCS; 2025-03-31)
PROC: BW211ZZ Computerized Tomography (CT Scan) of Abdomen and Pelvis using Low Osmolar Contrast (ICD-10-PCS; 2025-03-31)
PROC: 0DTF0ZZ Resection of Right Large Intestine, Open Approach (ICD-10-PCS; principal; 2025-03-31 12:17)
DX: K56.2 Volvulus (principal); E87.1 Hypo-osmolality and hyponatremia; I10 Essential (primary) hypertension; F31.9 Bipolar disorder, unspecified; E87.6 Hypokalemia; F41.9 Anxiety disorder, unspecified; J44.9 Chronic obstructive pulmonary disease, unspecified; Z96.641 Presence of right artificial hip joint; E11.9 Type 2 diabetes mellitus without complications; I25.2 Old myocardial infarction; Z79.82 Long term (current) use of aspirin; Z79.899 Other long term (current) drug therapy; Z90.710 Acquired absence of both cervix and uterus; Z83.3 Family history of diabetes mellitus
CPT/HCPCS: 36415; 71045; 74018; 74177; 80048; 80053; 81003; 83690; 84132; 84145; 85025; 85651; 87081; 88307; 93005; 96361; 96374; 96375; 97116; 97161; 97530; 99285; A4215; A4615; A4618; A6258; A6449; A7000; G0378; J0131; J0666; J0694; J1100; J1171; J1644; J2003; J2250; J2270; J2405; J2704; J2710; J3010; J3490; J7030; J7120; Q9967